=== PATIENT | female | born 1935 | race Caucasian/White ===

== ENCOUNTER 2016-07-30 | Emergency (ER) | payer MEDICARE, OTHER | END 2016-07-30 20:50 | disposition home or self-care (01) ==

== ENCOUNTER 2017-12-09 10:06 | Emergency (ER) | payer MEDICARE, OTHER ==
--- NOTE | 2017-12-09 10:28 | ED Physician Documentation ---
History of Present Illness - Stated complaint Stated Complaint: ELEVATED BP/CHEST DISCOMFORT - Chief complaint Chief Complaint: Cardiac - History obtained from History obtained from: Patient, Family - History of Present Illness Timing: How many days ago (2) Pain level max: 3 Pain level now: 2 Improved by: rest Worsened by: standing - Additonal information Additional information: Patient is an 82-year-old female who presents to the emergency department complaining of head congestion and occasional coughing. She states when she coughs that her chest feels tight. She denies any fevers. Has not taken anything for this. She states that she feels "woozy" when her head hurts. Review of Systems Constitutional: denies: Fever, Chills Nose: reports: Congestion. denies: Rhinorrhea / runny nose Throat: denies: Sore throat Cardiac: denies: Chest pain / pressure Respiratory: denies: Cough GI: denies: Nausea, Vomiting Skin: denies: Rash Musculoskeletal: denies: Neck pain, Back pain PD PAST MEDICAL HISTORY - Past Medical History Cardiovascular: Hypertension, High cholesterol, Coronary artery disease, [place] Endocrine/Autoimmune: Type 2 diabetes Psych: None Musculoskeletal: None - Past Surgical History Past Surgical History: Yes Ortho: Arthroscopic surgery Cardiovascular: Coronary stent - Present Medications Home Medications: Ambulatory Orders Medication Instructions Recorded Confirmed Clopidogrel [Plavix] 1 tab PO DAILY 03/25/14 03/11/16 Lisinopril 1 tab PO DAILY 03/25/14 03/11/16 Metoprolol Succinate [Toprol Xl] 1 tab PO DAILY 03/25/14 03/11/16 Simvastatin 1 tab PO DAILY 03/25/14 03/11/16 Aspirin [Aspir 81] 81 g PO DAILY 08/01/14 03/11/16 Fluticasone [Flonase] 1 sprays CRISSY BID #1 bottle 08/01/14 03/11/16 Metformin HCl 500 mg PO BID 08/01/14 03/11/16 Hydrocodone/Acetaminophen [[place] 1 each PO Q6H PRN #20 tablet 12/18/15 03/11/16 5-325 Tablet] Cholecalciferol (Vitamin D3) 1 tab PO DAILY 01/27/16 03/11/16 [Vitamin D3] Cephalexin [Keflex] 500 mg PO Q6H #20 capsule 12/09/17 - Allergies Allergies/Adverse Reactions: Allergies Allergy/AdvReac Type Severity Reaction Status Date / Time No Known Drug Allergies Allergy Verified 12/09/17 10:22 - Social History Does the pt smoke?: No Smoking Status: Former smoker Does the pt drink ETOH?: No Does the pt have substance abuse?: No - Immunizations Immunizations are current?: Yes - POLST Patient has POLST: No PD ED PE NORMAL - Vitals Vital signs reviewed: Yes - General General: Alert and oriented X 3, No acute distress, Well developed/nourished - HEENT HEENT: PERRL, Ears normal, Pharynx benign, Other (mildly dry lips) - Neck Neck: Supple, no meningeal sign - Cardiac Cardiac: RRR, Strong equal pulses - Respiratory Respiratory: No respiratory distress, Clear bilaterally - Abdomen Abdomen: Soft, Non tender, Non distended - Back Back: No CVA TTP, No spinal TTP - Derm Derm: Warm and dry - Extremities Extremities: No edema, No calf tenderness / cord - Neuro Neuro: Alert and oriented X 3 Results - Vitals Vitals: Vital Signs - 24 hr 12/09/17 12/09/17 12/09/17 10:11 11:03 11:05 Temperature 36.6 C 36.3 C L Heart Rate 62 56 L Respiratory 18 12 Rate Blood Pressure 157/98 H 183/87 H Blood Pressure 174/99 H [Left] Blood Pressure 183/87 H [Right] O2 Saturation 99 100 12/09/17 12:37 Temperature Heart Rate 58 L Respiratory 18 Rate Blood Pressure 166/96 H Blood Pressure [Left] Blood Pressure [Right] O2 Saturation 98 Oxygen O2 Source Room air - EKG (time done) 1020 Rate: Rate (enter#) (58) Rhythm: NSR [place]: Normal Intervals: Normal [place] QRS: Normal Ischemia: Normal ST segments, Q waves (III, aVF) - Labs Labs: Laboratory Tests 12/09/17 12/09/17 12/09/17 10:35 10:35 10:35 WBC 7.7 RBC 4.42 Hgb 13.4 Hct 39.3 MCV 89.1 MCH 30.4 MCHC 34.2 RDW 13.0 Plt Count 253 MPV 7.7 L Neut # (Auto) 5.4 Lymph # (Auto) 1.4 L Ray # (Auto) 0.6 Eos # (Auto) 0.2 Baso # (Auto) 0.0 Absolute Nucleated RBC 0.00 Nucleated RBC % 0.0 Sodium 127 L Potassium 4.4 Chloride 94 L Carbon Dioxide 26 Anion Gap 7.0 BUN 14 Creatinine 0.8 Estimated GFR (MDRD) 68 L Glucose 108 H Calcium 8.9 Total Bilirubin 0.9 AST 19 ALT 13 Alkaline Phosphatase 61 Troponin I < 0.04 Total Protein 7.3 Albumin 4.0 Globulin 3.3 Albumin/Globulin Ratio 1.2 Lipase 38 Urine Color Urine Clarity Urine pH Ur Specific [place] Urine Protein Urine Glucose (UA) Urine Ketones Urine Occult Blood Urine Nitrite Urine Bilirubin Urine Urobilinogen Ur Leukocyte Esterase Urine RBC Urine WBC Ur Squamous Epith Cells Urine Bacteria Ur Microscopic Review Urine Culture Comments 12/09/17 11:00 WBC RBC Hgb Hct MCV MCH MCHC RDW Plt Count MPV Neut # (Auto) Lymph # (Auto) Ray # (Auto) Eos # (Auto) Baso # (Auto) Absolute Nucleated RBC Nucleated RBC % Sodium Potassium Chloride Carbon Dioxide Anion Gap BUN Creatinine Estimated GFR (MDRD) Glucose Calcium Total Bilirubin AST ALT Alkaline Phosphatase Troponin I Total Protein Albumin Globulin Albumin/Globulin Ratio Lipase Urine Color YELLOW Urine Clarity CLEAR Urine pH 7.0 Ur Specific Fleming <=1.005 Urine Protein NEGATIVE Urine Glucose (UA) NEGATIVE Urine Ketones NEGATIVE Urine Occult Blood NEGATIVE Urine Nitrite NEGATIVE Urine Bilirubin NEGATIVE Urine Urobilinogen 0.2 (NORMAL) Ur Leukocyte Esterase SMALL H Urine RBC None Seen Urine WBC 0-3 Ur Squamous Epith Cells FEW Squamous Urine Bacteria Few Ur Microscopic Review INDICATED Urine Culture Comments INDICATED - Rads (name of study) cxr Radiology: Prelim report reviewed, EMP read contemporaneously, See rad report ( Mild bibasilar reticular opacity, likely atelectasis. No focal consolidation or other acute abnormality appreciated. ) PD MEDICAL DECISION MAKING - ED course Complexity details: reviewed results, re-evaluated patient, considered differential, d/w patient, d/w family ED course: Patient is an 82-year-old female who presents to the emergency department not feeling well today. Appears to have UTI and will treat her for this. No evidence of acute coronary syndrome. Also feels better after a small amount of IV fluids, likely mild dehydration as well. Has chronic hyponatremia and her sodium levels are unchanged from baseline. She is well-appearing, nontoxic. Afebrile. No focal neurological deficits. Patient and family counseled regarding signs and symptoms for which I believe and urgent re-evaluation would be necessary. Patient with good understanding of and agreement to plan and is comfortable going home at this time This document was made in part using voice recognition software. While efforts are made to proofread this document, sound alike and grammatical errors may occur. Departure - Departure Disposition: Home, Self Care Clinical Impression: Light-headed feeling UTI (urinary tract infection) Qualifiers: Urinary tract infection type: acute cystitis Hematuria presence: without hematuria Qualified Code(s): N30.00 - Acute cystitis without hematuria Condition: Good Instructions: ED UTI Cystitis Female Follow-Up: Caleb Tamez MD [Primary Care Provider] - Prescriptions: Cephalexin [Keflex] 500 mg PO Q6H #20 capsule Comments: Take all antibiotics until gone. Return if you worsen. Drink plenty of water at home. Discharge Date/Time: 12/09/17 12:37
[2017-12-09] MEDS ORDERED: ACETAMINOPHEN 500 MG TABLET PO STA (10:32)
[2017-12-09] MEDS ORDERED: SODIUM CHLORIDE 0.9% 500 ML IV ONE (10:32)
[2017-12-09 10:42] LABS: BASOPHILS % (AUTO) 0.5 %; EOSINOPHILS # (AUTO) 0.2 10^3/uL (0.0-0.7); EOSINOPHILS % (AUTO) 2.6 %; HGB - HEMOGLOBIN 13.4 g/dL (12.0-16.0); LYMPHOCYTES # (AUTO) 1.4 10^3/uL (1.5-3.5); LYMPHOCYTES % (AUTO) 18.4 %; MEAN CORPUSCULAR HEMOGLOBIN 30.4 pg (27.0-31.0); MEAN CORPUSCULAR HGB CONC 34.2 g/dL (32.0-36.0); MEAN CORPUSCULAR VOLUME 89.1 fL (81.0-99.0); MEAN PLATELET VOLUME 7.7 fL (7.9-10.8); MONOCYTES # (AUTO) 0.6 10^3/uL (0.0-1.0); MONOCYTES % (AUTO) 7.4 %; NEUTROPHILS # (AUTO) 5.4 10^3/uL (1.5-6.6); NEUTROPHILS % (AUTO) 71.1 %; PLT - PLATELET COUNT 253 10^3/uL (130-450); RED BLOOD COUNT 4.42 10^6/uL (4.20-5.40); WHITE BLOOD COUNT 7.7 x10^3/uL (4.8-10.8)
[2017-12-09 10:55] LABS: ALBUMIN/GLOBULIN RATIO 1.2 (1.0-2.2); BILIRUBIN,TOTAL 0.9 mg/dL (0.2-1.0); CALCIUM 8.9 mg/dL (8.5-10.3); CREATININE 0.8 mg/dL (0.4-1.0); TOTAL PROTEIN 7.3 g/dL (6.7-8.2)
[2017-12-09 11:27] LABS: BILIRUBIN,URINE NEGATIVE (NEGATIVE); GLUCOSE, URINE (UA) NEGATIVE (NEGATIVE); KETONES,URINE (UA) NEGATIVE (NEGATIVE); LEUKOCYTE ESTERASE, URINE SMALL (NEGATIVE); NITRITE,URINE NEGATIVE (NEGATIVE); OCCULT BLOOD,URINE NEGATIVE (NEGATIVE); PROTEIN,URINE NEGATIVE (NEGATIVE); UROBILINOGEN,URINE 0.2 (NORMAL) E.U./dL (NORMAL)
[2017-12-09 11:33] LABS: BACTERIA,URINE Few /HPF (None Seen); CLARITY,URINE CLEAR (CLEAR); RBC,URINE None Seen /HPF (0-5); SQUAMOUS EPITHELIAL CELL,UR FEW Squamous (<= Few)
--- NOTE | 2017-12-09 11:40 | XRAY Report ---
EXAM: CHEST RADIOGRAPHY EXAM DATE: 12/09/2017 11:27 AM. CLINICAL HISTORY: Chest pain. COMPARISON: 03/11/2016. TECHNIQUE: 1 view. FINDINGS: Lungs/Pleura: There is mild bibasilar reticular opacity. No focal consolidation. No pneumothorax or l arge pleural effusion. Mediastinum: Heart size within normal limits. Atherosclerotic calcification in the aortic arch. Other: None. IMPRESSION: 1. Mild bibasilar reticular opacity, likely atelectasis. 2. No focal consolidation or other acute abnormality appreciated. [facility] Referring Provider Line: [phone] SITE ID: [id number]
[2017-12-09] MEDS ORDERED: cephALEXin 250 MG CAPSULE PO STA (12:09)
[2017-12-09 12:38] VITALS: BP 166/96
== END 2017-12-09 12:37 | disposition home or self-care (01) ==
LOC: ED 10:06
DX: E86.0 Dehydration (principal); R42 Dizziness and giddiness; N30.00 Acute cystitis without hematuria; I10 Essential (primary) hypertension; E78.00 Pure hypercholesterolemia, unspecified; I25.10 Atherosclerotic heart disease of native coronary artery without angina pectoris; I25.2 Old myocardial infarction; E11.9 Type 2 diabetes mellitus without complications; Z79.84 Long term (current) use of oral hypoglycemic drugs; Z79.82 Long term (current) use of aspirin; Z87.891 Personal history of nicotine dependence
CPT/HCPCS: 71045; 80053; 81001; 83690; 84484; 85025; 87086; 93005; 96360; 96361; 99284; A9270; 36415; 81003

== ENCOUNTER 2018-02-11 13:49 | Emergency (ER) | payer MEDICARE, OTHER ==
[2018-02-11 15:21] LABS: BASOPHILS % (AUTO) 0.5 %; EOSINOPHILS # (AUTO) 0.2 10^3/uL (0.0-0.7); EOSINOPHILS % (AUTO) 1.8 %; HGB - HEMOGLOBIN 12.7 g/dL (12.0-16.0); LYMPHOCYTES # (AUTO) 1.5 10^3/uL (1.5-3.5); LYMPHOCYTES % (AUTO) 15.2 %; MEAN CORPUSCULAR HEMOGLOBIN 31.5 pg (27.0-31.0); MEAN CORPUSCULAR HGB CONC 34.8 g/dL (32.0-36.0); MEAN CORPUSCULAR VOLUME 90.6 fL (81.0-99.0); MEAN PLATELET VOLUME 7.2 fL (7.9-10.8); MONOCYTES # (AUTO) 0.7 10^3/uL (0.0-1.0); MONOCYTES % (AUTO) 6.7 %; NEUTROPHILS # (AUTO) 7.5 10^3/uL (1.5-6.6); NEUTROPHILS % (AUTO) 75.8 %; PLT - PLATELET COUNT 265 10^3/uL (130-450); RED BLOOD COUNT 4.04 10^6/uL (4.20-5.40); RED CELL DISTRIBUTION WIDTH 13.1 % (12.0-15.0); WHITE BLOOD COUNT 9.9 x10^3/uL (4.8-10.8)
[2018-02-11 15:40] LABS: ALBUMIN 3.6 g/dL (3.2-5.5); ALBUMIN/GLOBULIN RATIO 1.2 (1.0-2.2); BILIRUBIN,TOTAL 0.6 mg/dL (0.2-1.0); CALCIUM 8.8 mg/dL (8.5-10.3); CREATININE 0.7 mg/dL (0.4-1.0); TOTAL PROTEIN 6.7 g/dL (6.7-8.2)
--- NOTE | 2018-02-11 18:48 | ED Physician Documentation ---
PD HPI CHEST PAIN - Stated complaint Stated Complaint: BP HIGH, LIGHTHEADED - Chief complaint Chief Complaint: General - History obtained from History obtained from: Patient - History of Present Illness Timing - onset: How many days ago (has noted BP higher the past few days and was 180s today and then got higher as she took it repeatedly. She has had some frontal sinus pressure for days. Not taking any decongestants, but did take Zyrtec. Feeling some lightheaded and frontal headache at times. Took BP and it was eleveated, even higher today. Took it many times today.) Timing - onset during: Light activity Timing - details: Gradual onset, Waxing and waning Quality: Other (no chest pain, but did feel anxious. BP noted to be high at home.) Associated symptoms: Feeling faint / dizzy, General Weakness. No: Shortness of air, Nausea, Vomiting, Palpitations, Cough Similar symptoms before: Diagnosis (BP runs high at times, but higher today than previously.) Recently seen: Not recently seen Review of Systems Constitutional: denies: Fever, Chills Eyes: reports: Decreased vision (es blurry at times). denies: Loss of vision, Photophobia Nose: reports: Congestion, Sinus pressure / pain. denies: Rhinorrhea / runny nose Throat: denies: Sore throat Cardiac: denies: Chest pain / pressure, Palpitations, Pedal edema, Calf pain Respiratory: denies: Dyspnea, Cough, Wheezing Skin: denies: Rash, Lesions Neurologic: reports: Generalized weakness. denies: Focal weakness, Numbness, Near syncope, Confused, Altered mental status, Head injury PD PAST MEDICAL HISTORY - Past Medical History Past Medical History: Yes Cardiovascular: Hypertension, High cholesterol, Coronary artery disease, [place] Endocrine/Autoimmune: Type 2 diabetes Psych: None Musculoskeletal: None - Past Surgical History Past Surgical History: Yes Ortho: Arthroscopic surgery Cardiovascular: Coronary stent - Present Medications Home Medications: Ambulatory Orders Medication Instructions Recorded Confirmed Clopidogrel [Plavix] 1 tab PO DAILY 03/25/14 03/11/16 Lisinopril 1 tab PO DAILY 03/25/14 03/11/16 Metoprolol Succinate [Toprol Xl] 1 tab PO DAILY 03/25/14 03/11/16 Simvastatin 1 tab PO DAILY 03/25/14 03/11/16 Aspirin [Aspir 81] 81 g PO DAILY 08/01/14 03/11/16 Fluticasone [Flonase] 1 sprays CRISSY BID #1 bottle 08/01/14 03/11/16 Metformin HCl 500 mg PO BID 08/01/14 03/11/16 Hydrocodone/Acetaminophen [[place] 1 each PO Q6H PRN #20 tablet 12/18/15 03/11/16 5-325 Tablet] Cholecalciferol (Vitamin D3) 1 tab PO DAILY 01/27/16 03/11/16 [Vitamin D3] Cephalexin [Keflex] 500 mg PO Q6H #20 capsule 12/09/17 Dexamethasone [Decadron] 4 mg PO DAILY #5 tablet 02/11/18 Fluticasone [Flonase] 1 sprays CRISSY BID #1 bottle 02/11/18 - Allergies Allergies/Adverse Reactions: Allergies Allergy/AdvReac Type Severity Reaction Status Date / Time No Known Drug Allergies Allergy Verified 12/09/17 10:22 - Social History Does the pt smoke?: No Smoking Status: Never smoker Does the pt drink ETOH?: No Does the pt have substance abuse?: No - Immunizations Immunizations are current?: Yes - POLST Patient has POLST: No PD ED PE NORMAL - Vitals Vital signs reviewed: Yes - General General: Alert and oriented X 3, No acute distress, Well developed/nourished - HEENT HEENT: Atraumatic, Moist mucous membranes, Pharynx benign, Other (some frontal tenderness to percussion) - Neck Neck: Supple, no meningeal sign, No adenopathy - Cardiac Cardiac: RRR, No murmur - Respiratory Respiratory: Clear bilaterally - Abdomen Abdomen: Soft, Non tender - Derm Derm: Normal color, Warm and dry - Extremities Extremities: No deformity, No tenderness to palpate, Normal ROM s pain, No edema , No calf tenderness / cord - Neuro Neuro: Alert and oriented X 3, clinical program director 2-12 intact, No motor deficit, No sensory deficit, Normal speech Eye Opening: Spontaneous Motor: Obeys Commands Verbal: Oriented GCS Score: 15 Results - Vitals Vitals: Vital Signs - 24 hr 02/11/18 02/11/18 02/11/18 14:20 16:16 18:25 Temperature 36.8 C 36.0 C L Heart Rate 60 61 64 Respiratory 18 20 15 Rate Blood Pressure 154/80 H 151/97 H 193/88 H O2 Saturation 100 100 100 02/11/18 02/11/18 19:48 20:38 Temperature Heart Rate 73 82 Respiratory 19 19 Rate Blood Pressure 189/107 H 143/124 H O2 Saturation 100 100 Oxygen O2 Source Room air - EKG (time done) 15:10 Rate: Rate (enter#) (60) Rhythm: NSR [place]: Normal Intervals: Normal [place] QRS: Normal Ischemia: Normal ST segments. No: ST elevation c/w ischemia, ST depression - Labs Labs: Laboratory Tests 02/11/18 02/11/18 02/11/18 15:10 15:10 15:10 WBC 9.9 RBC 4.04 L Hgb 12.7 Hct 36.6 L MCV 90.6 MCH 31.5 H MCHC 34.8 RDW 13.1 Plt Count 265 MPV 7.2 L Neut # (Auto) 7.5 H Lymph # (Auto) 1.5 [place] # (Auto) 0.7 Eos # (Auto) 0.2 Baso # (Auto) 0.0 Absolute Nucleated RBC 0.00 Nucleated RBC % 0.0 Sodium 124 L Potassium 4.3 Chloride 92 L Carbon Dioxide 21 Anion Gap 11.0 BUN 14 Creatinine 0.7 Estimated GFR (MDRD) 80 L Glucose 112 H Calcium 8.8 Magnesium 1.9 Total Bilirubin 0.6 AST 17 ALT 13 Alkaline Phosphatase 55 B-Natriuretic Peptide Total Protein 6.7 Albumin 3.6 Globulin 3.1 Albumin/Globulin Ratio 1.2 Lipase 39 02/11/18 15:10 WBC RBC Hgb Hct MCV MCH MCHC RDW Plt Count MPV Neut # (Auto) Lymph # (Auto) [place] # (Auto) Eos # (Auto) Baso # (Auto) Absolute Nucleated RBC Nucleated RBC % Sodium Potassium Chloride Carbon Dioxide Anion Gap BUN Creatinine Estimated GFR (MDRD) Glucose Calcium Magnesium Total Bilirubin AST ALT Alkaline Phosphatase B-Natriuretic Peptide 148 H Total Protein Albumin Globulin Albumin/Globulin Ratio Lipase PD MEDICAL DECISION MAKING - ED course Complexity details: considered differential (has frontal sinus pressure and some congestion c/w allergies. She took BP many times today and it kept getting higher. This concerned her. ), d/w patient - Sepsis Event Vital Signs: Vital Signs - 24 hr 02/11/18 02/11/18 02/11/18 14:20 16:16 18:25 Temperature 36.8 C 36.0 C L Heart Rate 60 61 64 Respiratory 18 20 15 Rate Blood Pressure 154/80 H 151/97 H 193/88 H O2 Saturation 100 100 100 02/11/18 02/11/18 19:48 20:38 Temperature Heart Rate 73 82 Respiratory 19 19 Rate Blood Pressure 189/107 H 143/124 H O2 Saturation 100 100 Oxygen O2 Source Room air Departure - Departure Disposition: 01 Home, Self Care Clinical Impression: Sinus pressure, Elevated blood pressure reading, Hyponatremia Condition: Stable Record reviewed to determine appropriate education?: Yes Instructions: ED Hyponatremia, ED Headache Sinus Follow-Up: Caleb Tamez MD [Primary Care Provider] - Prescriptions: Dexamethasone [Decadron] 4 mg PO DAILY #5 tablet Fluticasone [Flonase] 1 sprays CRISSY BID #1 bottle Comments: Use Flonase nasal spray twice daily for sinus congestion. He can continue the Zyrtec daily. We could use some oral steroids daily for a few days to help with the symptoms as well. The sinus pressure and headache may be causing her blood pressure to be elevated. For now continue your usual blood pressure medicines. Check your blood pressure twice daily but no more than that over the next week or so. Follow-up with your primary care regarding symptoms and the trend of the blood pressure. Discharge Date/Time: 02/11/18 20:42
[2018-02-11] MEDS ORDERED: DEXAMETHASONE 10 MG/ML VIAL PO STA (19:14)
[2018-02-11] MEDS ORDERED: SODIUM CHLORIDE 0.9% 1,000 ML IV ONE (19:14)
[2018-02-11] MEDS ORDERED: CHERRY SYRUP 10 ML UDC PO ONE (19:16)
[2018-02-11 20:39] VITALS: BP 143/124
== END 2018-02-11 20:42 | disposition home or self-care (01) ==
LOC: ED 13:49
DX: J32.9 Chronic sinusitis, unspecified (principal); I10 Essential (primary) hypertension; E87.1 Hypo-osmolality and hyponatremia; R94.31 Abnormal electrocardiogram [ECG] [EKG]; E11.9 Type 2 diabetes mellitus without complications; E78.00 Pure hypercholesterolemia, unspecified; Z79.84 Long term (current) use of oral hypoglycemic drugs; I25.2 Old myocardial infarction; I25.10 Atherosclerotic heart disease of native coronary artery without angina pectoris; Z95.5 Presence of coronary angioplasty implant and graft; Z79.82 Long term (current) use of aspirin
CPT/HCPCS: 36415; 80053; 83690; 83735; 83880; 85025; 93005; 96360; 99283; A9270

== ENCOUNTER 2018-02-17 09:00 | Outpatient (CLI) | payer MEDICARE, OTHER ==
[2018-02-17 13:22] LABS: CALCIUM 9.4 mg/dL (8.5-10.3); CREATININE 0.9 mg/dL (0.4-1.0)
== END 2018-02-17 09:01 ==
LOC: LAB.WCP 09:00
PROVIDERS: ATTEND Family Medicine
DX: E87.1 Hypo-osmolality and hyponatremia (principal)
CPT/HCPCS: 36415; 80048

== ENCOUNTER 2018-02-24 08:20 | Outpatient (CLI) | payer MEDICARE, OTHER ==
[2018-02-24 12:41] LABS: CALCIUM 8.8 mg/dL (8.5-10.3); CREATININE 0.8 mg/dL (0.4-1.0)
== END 2018-02-24 08:21 | disposition home or self-care (01) ==
LOC: LAB.WCP 08:20
PROVIDERS: ATTEND Family Medicine
DX: E87.1 Hypo-osmolality and hyponatremia (principal)
CPT/HCPCS: 36415; 80048

== ENCOUNTER 2018-02-25 11:10 | Outpatient (CLI) | payer MEDICARE, OTHER ==
[2018-02-26 10:01] LABS: HEPATITIS C ANTIBODY NON-REACTIVE (NON-REACTIVE)
== END 2018-02-25 11:11 ==
LOC: LAB.WCP 11:10
PROVIDERS: ATTEND Family Medicine
DX: Z20.5 Contact with and (suspected) exposure to viral hepatitis (principal)
CPT/HCPCS: 36415; 86803

== ENCOUNTER → 2018-03-06 | Outpatient (CLI) | payer MEDICARE, OTHER ==
[2018-03-06 13:46] LABS: CALCIUM 9.2 mg/dL (8.5-10.3); CREATININE 0.6 mg/dL (0.4-1.0)
== END ==
LOC: LAB.WCP 08:00
PROVIDERS: ATTEND Family Medicine
DX: E87.1 Hypo-osmolality and hyponatremia (principal)
CPT/HCPCS: 36415; 80048

== ENCOUNTER 2018-11-20 09:02 | Outpatient (CLI) | payer MEDICARE, OTHER ==
--- NOTE | 2018-11-20 13:38 | XRAY Report ---
Reason: COUGH Procedure Date: 11/20/2018 Accession Number: [id number] / [id number] Procedure: WCP - Chest 2 View X-Ray CPT Code: 86969 FULL RESULT: EXAM: CHEST RADIOGRAPHY EXAM DATE: 11/20/2018 09:28 AM. CLINICAL HISTORY: Cough. COMPARISON: CHEST 1 VIEW 12/09/2017 11:12 AM. CHEST 2 VIEW PA/LAT 11/17/2015 7:55 AM. TECHNIQUE: 2 views. FINDINGS: Lungs/Pleura: 3.8 cm rounded mass superimposes over the left lower lung/cardiac silhouette on the frontal projection which may be pleural-based on the lateral projection. No effusion or extra-ventilatory air. Mediastinum: Heart and mediastinal contours are unremarkable. Other: None. IMPRESSION: 3.8 cm rounded mass left lower lung likely posterior pleural-based. CT is recommended for definitive characterization. AVANI The call report notification system was initiated by Dr. Castillo Larsen at 01:32 PM on 11/20/2018. ADDENDUM: 11/20/18 13:41 The above call report findings were discussed with Magdi Troy by Dr. Castillo Larsen at 01:41 PM on 11/20/2018.
== END 2018-11-20 09:03 | disposition home or self-care (01) ==
LOC: DI.WCP 09:02
PROVIDERS: ATTEND Family Medicine
DX: R91.8 Other nonspecific abnormal finding of lung field (principal)
CPT/HCPCS: 71046

== ENCOUNTER 2018-11-21 10:41 | Outpatient (CLI) | payer MEDICARE, OTHER ==
[2018-11-21 11:26] LABS: CREATININE 0.8 mg/dL (0.4-1.0)
[2018-11-21] MEDS ORDERED: IOVERSOL 320 100 ML VIAL IVP ONE ×2 (12:09→12:24)
--- NOTE | 2018-11-23 21:11 | CT Report ---
Reason: PULMONARY NODULE Procedure Date: 11/21/2018 Accession Number: [id number] / [id number] Procedure: CT - CHEST W CPT Code: FULL RESULT: EXAM: CT CHEST EXAM DATE: 11/21/2018 12:23 PM. CLINICAL HISTORY: PULMONARY NODULE. COMPARISONS: CHEST 2 VIEW 11/20/2018 9:09 AM. TECHNIQUE: Routine helical CT imaging was performed through the chest. IV contrast: None. Reconstructions: Coronal and sagittal. In accordance with CT protocol optimization, one or more of the following dose reduction techniques were utilized for this exam: automated exposure control, adjustment of mA and/or KV based on patient size, or use of iterative reconstructive technique. FINDINGS: Lungs/Pleura: There is a large moderately well-circumscribed mass in the superior aspect of the left lower lobe. There are, however, surrounding areas of subtle spiculation/interstitial change. Transversely this measures 30 mm x30 mm and superiorly inferiorly measures 37 mm. There is contiguity with the pleural surface yet no CT evidence for invasion. Otherwise the lungs demonstrate areas of centrilobular emphysema and minimal scarring in the apices. There is early interstitial change in the periphery of the mid and lower lungs. No acute pneumonic infiltrates. No secondary pulmonary nodules. Mediastinum: The heart is borderline enlarged. There are prominent atherosclerotic vascular calcifications of the coronary arteries. There is no mediastinal or hilar lymphadenopathy. There is no axillary lymphadenopathy. The thyroid gland is normal. Bones: Unremarkable. Visualized Abdomen: Limited views through the upper abdomen demonstrate fatty infiltration of the liver. There is a tiny focus of enhancement in the posterior segment of the right lobe of the liver. This measures 4 mm and is too small to characterize. The adrenal glands are normal. Other: None. IMPRESSION: 1. Prominent mass in the left lower lobe as described with slight surrounding spiculation suggesting early infiltration in the adjacent parenchyma. 2. No mediastinal or hilar lymphadenopathy. 3. Centrilobular emphysema. 4. Tiny focus of enhancement in the right lobe of the liver too small to characterize. [facility]
== END 2018-11-21 10:42 | disposition home or self-care (01) ==
LOC: DI 10:41
PROVIDERS: ATTEND Family Medicine
DX: R91.8 Other nonspecific abnormal finding of lung field (principal); J43.2 Centrilobular emphysema
CPT/HCPCS: 36415; 71260; 82565; Q9967

== ENCOUNTER 2018-12-31 06:54 | Outpatient (CLI) | payer MEDICARE, OTHER ==
--- NOTE | 2018-12-31 15:00 | CT Report ---
Reason: LUNG MASS Procedure Date: 12/31/2018 Accession Number: [id number] / [id number] Procedure: CT - CHEST WO CPT Code: FULL RESULT: EXAM: CT CHEST WITHOUT CONTRAST. EXAM DATE: 12/31/2018 07:18 AM. CLINICAL HISTORY: Lung mass. 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 COMPARISONS: CHEST W/ 11/21/2018 12:14 PM. TECHNIQUE: Routine helical CT imaging was performed through the chest. IV contrast: None. Reconstructions: Coronal and sagittal. In accordance with CT protocol optimization, one or more of the following dose reduction techniques were utilized for this exam: automated exposure control, adjustment of mA and/or KV based on patient size, or use of iterative reconstructive technique. FINDINGS: Lungs/Pleura: The 3 x 3 cm left lower lung mass is best seen on image 36 series 4 and essentially unchanged. Bibasilar peripheral interstitial thickening with possible early honeycombing and traction bronchiectasis right greater than left is again seen. Emphysema is also again noted, unchanged. Mediastinum: Severe three-vessel coronary calcifications are redemonstrated. The thoracic aorta is moderately atherosclerotic. There is no pericardial effusion. There is no definite hilar lymphadenopathy. Prominent mediastinal lymph nodes do not meet size criteria. Bones: Unremarkable. Visualized Abdomen: Suspected focal fatty infiltration near the gallbladder fossa is again seen. Other: None. IMPRESSION: Redemonstration of left lower lobe mass, not significantly changed. [facility]
== END 2018-12-31 06:55 | disposition home or self-care (01) ==
LOC: DI 06:54
PROVIDERS: ATTEND Internal Medicine Pulmonary Disease
DX: R91.8 Other nonspecific abnormal finding of lung field (principal)
CPT/HCPCS: 71250

== ENCOUNTER 2019-02-05 16:45 | Outpatient (CLI) | payer MEDICARE, OTHER ==
[2019-02-05 17:27] LABS: CALCIUM 9.1 mg/dL (8.5-10.3); CREATININE 0.7 mg/dL (0.4-1.0)
[2019-02-05] MEDS ORDERED: GADOBUTROL 7.5 MMOL/7.5 ML VIAL ONE (17:29)
[2019-02-05] MEDS ORDERED: GADOBUTROL 7.5 MMOL/7.5 ML VIAL IVP ONE (18:13)
--- NOTE | 2019-02-06 07:03 | MRI Report ---
Reason: LUNG CANCER STAGING,MALIGNANT NEOPLASOM OF LOWER L Procedure Date: 02/05/2019 Accession Number: [id number] / [id number] Procedure: MRI - Brain W/WO CPT Code: FULL RESULT: EXAM: MRI BRAIN WITHOUT AND WITH CONTRAST EXAM DATE: 02/05/2019 06:41 PM CLINICAL HISTORY: Lung cancer staging. COMPARISON: HEAD W/O 09/10/2014 8:32 PM. TECHNIQUE: Multiplanar, multisequence T1-weighted and fluid-sensitive MR sequences of the brain were performed. Sequences optimized for routine evaluation. Other: None. IV Contrast: 4.5 mL Gadavist. FINDINGS: Brain Volume: There is moderate generalized cerebral volume loss, in keeping with the patient's age. Parenchyma: No acute hemorrhage, mass, or infarct. Mild periventricular T2 hyperintensity is present, typically reflecting chronic microvascular ischemic changes in a patient of this age. No abnormal enhancement. Ventricles/Cisterns: No hydrocephalus. No abnormal extra-axial fluid collection or hemorrhage. A prominent perivascular space is noted in the inferior left basal ganglia, a normal variant. Orbits: Postsurgical changes from cataract extractions are noted in the globes. Sella Turc[place]: The pituitary gland, cavernous sinuses, suprasellar cistern and optic chiasm are unremarkable. IAC: Symmetric and unremarkable. Vasculature: Normal signal flow void is seen in the major arterial structures at the skull base. The dural sinuses are patent and enhance normally. Sinuses: There is mild mucosal thickening in the paranasal sinuses with a new air-fluid level in the right frontal sinus. The mastoid sinuses are not opacified. Bones: No focal pathologic appearing marrow signal changes. IMPRESSION: 1. No acute infarct, intracranial mass lesion, or hemorrhage. 2. Moderate senescent changes. 3. No abnormal enhancement to suggest intracranial metastasis. [facility]
== END 2019-02-05 16:46 | disposition home or self-care (01) ==
LOC: LAB 16:45 → DI 16:46
PROVIDERS: ATTEND Surgery
DX: C34.32 Malignant neoplasm of lower lobe, left bronchus or lung (principal)
CPT/HCPCS: 36415; 70553; 80048; A9585

== ENCOUNTER 2019-03-02 07:52 | Day surgery (SDC) | payer MEDICARE, OTHER ==
[2019-03-02] MEDS ORDERED: LACTATED RINGERS 1,000 ML IV ONE (08:06)
[2019-03-02 09:00] LABS: BASOPHILS % (AUTO) 0.3 %; EOSINOPHILS # (AUTO) 0.1 10^3/uL (0.0-0.7); EOSINOPHILS % (AUTO) 1.3 %; HGB - HEMOGLOBIN 11.9 g/dL (12.0-16.0); MEAN CORPUSCULAR HGB CONC 33.5 g/dL (32.0-36.0); MEAN CORPUSCULAR VOLUME 86.4 fL (81.0-99.0); MEAN PLATELET VOLUME 10.6 fL (7.9-10.8); MONOCYTES # (AUTO) 0.2 10^3/uL (0.0-1.0); MONOCYTES % (AUTO) 3.1 %; NEUTROPHILS # (AUTO) 4.6 10^3/uL (1.5-6.6); NEUTROPHILS % (AUTO) 76.2 %; PLT - PLATELET COUNT 246 10^3/uL (130-450); RED BLOOD COUNT 4.11 10^6/uL (4.20-5.40); WHITE BLOOD COUNT 6.1 x10^3/uL (4.8-10.8)
--- NOTE | 2019-03-02 09:01 | ANESTHESIA ---
Pre-Anesthesia VS, & Labs - Diagnosis Lung cancer - Procedure Portacath placement Vital Signs: Temp Pulse Resp BP Pulse Ox 36.7 C 70 12 187/93 H 100 03/02/19 08:15 03/02/19 08:15 03/02/19 08:15 03/02/19 08:15 03/02/19 08:15 Height 4 ft 11 in Weight (kg) 43.6 kg Body Mass Index 20.2 - NPO >8 hours - Is Patient ?: Not Applicable - Lab Results Lab results reviewed: Yes Home Medications and Allergies Home Medications: Ambulatory Orders dexAMETHasone [Dexamethasone] 4 mg PO BID PRN 02/26/19 Clopidogrel [Plavix] 1 tab PO DAILY 03/25/14 Lisinopril 1 tab PO DAILY 03/25/14 Metoprolol Succinate [Toprol Xl] 1 tab PO DAILY 03/25/14 Simvastatin 1 tab PO DAILY 03/25/14 Aspirin [Aspir 81] 81 g PO DAILY 08/01/14 Metformin HCl 500 mg PO BID 08/01/14 Cholecalciferol (Vitamin D3) [Vitamin D3] 1 tab PO DAILY 01/27/16 dexAMETHasone [Dexamethasone] 4 mg PO BID PRN 02/26/19 Allergies/Adverse Reactions: Allergies Allergy/AdvReac Type Severity Reaction Status Date / Time No Known Drug Allergies Allergy Verified 12/09/17 10:22 Anes History & Medical History - Anesthetic History Anesthesia Complications: reports: No previous complications Family history of Anesthesia Complications: Denies Family history of Malignant Hyperthermia: Denies - Medical History Cardiovascular: reports: Hypertension, High cholesterol, Coronary artery disease, [place], Other (Five stents placed many years ago) Pulmonary: reports: COPD, Emphysema Gastrointestinal: reports: None Urinary: reports: None Neuro: reports: None Musculoskeletal: reports: Chronic back pain Endocrine/Autoimmune: reports: Type 2 diabetes Blood Disorders: reports: None Skin: reports: None Smoking Status: Never smoker Psychosocial: reports: No issues indicated - Surgical History Eyes Ears Nose Throat (EENT): Cataracts Cardiothoracic: Coronary stent Gynecologic: Hysterectomy Orthopedic: Arthroscopic surgery Exam General: Alert, Oriented x3, Cooperative Dental: Other (Severe mandible recession) Mouth Opening: Greater than 4 Fingerbreadths Neck Mobility: Normal Mallampati classification: II Thyromental Distance: 4-6 cm Cardiovascular: Regular rate Mental/Cognitive Status: Alert/Oriented X3 Cognitive Status: Within normal limits Plan Anesthesia Type: MAC Consent for Procedure(s) Verified and Reviewed: Yes Code Status: Attempt Resuscitation ASA classification: 3-Severe systemic disease Is this case an emergency?: No
[2019-03-02] MEDS ORDERED: SODIUM CHLORIDE FLUSH 0.9% 10 ML SYRINGE ONE (09:06)
[2019-03-02 09:11] LABS: ALBUMIN 3.6 g/dL (3.2-5.5); ALBUMIN/GLOBULIN RATIO 1.1 (1.0-2.2); BILIRUBIN,TOTAL 1.1 mg/dL (0.2-1.0); CALCIUM 8.6 mg/dL (8.5-10.3); CREATININE 0.7 mg/dL (0.4-1.0)
--- NOTE | 2019-03-02 09:13 | XRAY Report ---
Reason: preop for portacath Procedure Date: 03/02/2019 Accession Number: [id number] / [id number] Procedure: XR - Chest 1 View X-Ray CPT Code: 20497 FULL RESULT: EXAM: CHEST RADIOGRAPHY EXAM DATE: 03/02/2019 08:58 AM. CLINICAL HISTORY: Preop for Port-A-Cath. COMPARISON: CHEST 2 VIEW 11/20/2018 9:09 AM. CHEST W/O 12/31/2018 7:13 AM. TECHNIQUE: 1 view. FINDINGS: Lungs/Pleura: The left pulmonary mass projecting in the retrocardiac region is better seen on recent CT. There is no new lobar consolidation or overt pulmonary edema. There is no sizable pleural effusion or pneumothorax. Mediastinum: The cardiomediastinal silhouette is within the upper limits of normal, calcified aortic arch. Other: A left arm central catheter terminates in the lower SVC. IMPRESSION: Redemonstration of lung mass with no definite superimposed acute cardiopulmonary abnormality. RADIA
[2019-03-02] MEDS ORDERED: ceFAZolin 1 GM VIAL ONE ×2 (09:28→09:40)
[2019-03-02] MEDS ORDERED: LIDOCAINE 1% 50 ML MDV ONE (09:40)
[2019-03-02] MEDS ORDERED: IBUPROFEN 600 MG TABLET PO PRN (11:05)
[2019-03-02] MEDS ORDERED: ONDANSETRON 4 MG/2 ML VIAL IVP PRN (11:05)
[2019-03-02] MEDS ORDERED: ACETAMINOPHEN 325 MG TABLET PO PRN (11:05)
[2019-03-02 11:47] VITALS: BP 165/89
--- NOTE | 2019-03-02 12:01 | XRAY Report ---
Reason: line placement Procedure Date: 03/02/2019 Accession Number: [id number] / [id number] Procedure: XR - Chest for Line Placement CPT Code: FULL RESULT: EXAM: CHEST RADIOGRAPHY EXAM DATE: 03/02/2019 11:34 AM. CLINICAL HISTORY: Line placement. COMPARISON: CHEST 1 VIEW 03/02/2019 8:44 AM. TECHNIQUE: 1 view. FINDINGS: Lungs/Pleura: No pneumothorax or pleural effusion is appreciated. Remaining lung is unchanged. Known pulmonary mass is not well seen. Mediastinum: Stable cardiomediastinal silhouette with calcification of the aortic arch. Coronary stent is noted. Other: Left subclavian approach central venous port terminates with tip in the mid SVC. Left arm PICC terminates in the lower SVC. IMPRESSION: Port placement as described. RADIA
--- NOTE | 2019-03-02 12:04 | OPERATIVE REPORT ---
DATE OF SERVICE: 03/02/2019 Physician: Maulik Membreno MD PREOPERATIVE DIAGNOSIS: Lung cancer. POSTOPERATIVE DIAGNOSIS: Lung cancer. PROCEDURE PERFORMED: Insertion of PowerPort implantable venous access device. Intraoperative flouroscopy. ANESTHESIA: Local plus monitored anesthesia care by Akanksha Harris CRNA. SURGEON: Maulik Membreno MD ESTIMATED BLOOD LOSS: Less than 10 mL COMPLICATIONS: None. FINDINGS: Standard profile single lumen PowerPort MRI compatible, reservoir was placed in the left infraclavicular fossa. Access was via the left subclavian vein. Catheter tip was located in the superior vena cava. INDICATIONS: Patient is an 83-year-old woman with a recent diagnosis of lung cancer. She is currently receiving chemotherapy and is in need of venous access to facilitate same. She was interested in and advised to undergo placement of a PowerPort implantable venous access device. TECHNIQUE: After informed consent, patient was taken to the operating room where she was sedated and monitored. Preoperative preparation included administration of 1 gram of cefazolin intravenously within an hour of the incision. Preoperative chest x-ray and labs were obtained in satisfactory. Sequential calf compression boots have been applied preop. Plavix therapy had been held for over 5 days. Her anterior chest wall and neck were prepared with ChloraPrep solution and draped in the usual sterile fashion. Lidocaine 1% plain was used for local infiltration anesthesia. Approximately 18 mL of the mixture was used. The patient was placed in Trendelenburg position. Needle and syringe were used to access the left subclavian vein via an infraclavicular approach. A guidewire was then passed into the central venous circulation. The guidewire location of which was confirmed with fluoroscopy. The dilator was then passed over the guidewire, following which the guidewire was removed and the 8-[place] Silastic catheter, which had been flushed with saline was then advanced through the dilator sheath into the central venous circulation. Fluoroscopy was used to confirm the tip of the catheter in the superior vena cava. The breakaway sheath was removed. An incision was made extending from the needle exit site medially approximately 2.5 cm. Hemostasis achieved with electrocautery. Incision carried down through subcutaneous tissues until a subcutaneous pocket was created anterior to the pectoral muscle fascia a sufficient size to allow placement of the reservoir. After hemostasis was assured, the wound was irrigated with antibiotic solution containing 1 gram of Ancef per liter. The reservoir, which had been flushed was soaked in antibiotic solution, was seen to fit nicely into the cavity. The catheter was trimmed to the appropriate length and then attached to the hub of the reservoir with a locking device used to secure the catheter securely to the hub of the reservoir. The reservoir was then placed in the pocket. Catheter was seen to nicely exit the soft tissues beneath the clavicle and connected to the reservoir without kinking or excessive redundancy. The reservoir was secured to the pectoral fascia with two 3-0 nylon sutures. After hemostasis was assured, the wound was again irrigated with antibiotic solution, following which wound closure was accomplished in layers using continuous 3-0 Vicryl to reapproximate subcutaneous tissues, followed by 4-0 Monocryl subcuticular skin closure and Dermabond. Fluoroscopy was then used to confirm appropriate catheter tip location. The reservoir was seen to aspirate blood and flush easily with sterile saline. The procedure was then terminated, without any apparent complications. Patient left the procedure room in satisfactory condition. Sponge and needle counts were correct x2. No drains used. Followup portable upright chest x-ray is pending. cc: Magdi Troy DO TD: 03/02/2019 11:16 [email or web address]
--- NOTE | 2019-03-03 14:32 | XRAY Report ---
Reason: port placement Procedure Date: 03/02/2019 Accession Number: [id number] / [id number] Procedure: FL - OR C-Arm Procedure CPT Code: FULL RESULT: EXAM: FLUOROSCOPIC GUIDANCE EXAM DATE: 03/02/2019 10:30 AM. CLINICAL HISTORY: Port placement. COMPARISON: None. FINDINGS: No images are provided, radiologist was not present. IMPRESSION: Fluoroscopic guidance provided for vascular port placement. Total fluoroscopy time: 3 seconds. Number of images: None. RADIA
== END 2019-03-02 07:53 | disposition home or self-care (01) ==
LOC: SDS 07:52
PROVIDERS: ATTEND Internal Medicine Gastroenterology
PROC: 02HV33Z Insertion of Infusion Device into Superior Vena Cava, Percutaneous Approach (ICD-10-PCS; principal; 2019-03-02 09:30)
DX: C34.32 Malignant neoplasm of lower lobe, left bronchus or lung (principal); E11.9 Type 2 diabetes mellitus without complications; I10 Essential (primary) hypertension; J43.9 Emphysema, unspecified; E78.5 Hyperlipidemia, unspecified; I25.10 Atherosclerotic heart disease of native coronary artery without angina pectoris; G89.29 Other chronic pain; M54.5 Low back pain; J30.9 Allergic rhinitis, unspecified; L82.1 Other seborrheic keratosis; E55.9 Vitamin D deficiency, unspecified; L25.9 Unspecified contact dermatitis, unspecified cause; R51 Headache; Z79.84 Long term (current) use of oral hypoglycemic drugs; Z79.52 Long term (current) use of systemic steroids; Z95.5 Presence of coronary angioplasty implant and graft; I25.2 Old myocardial infarction; Z90.79 Acquired absence of other genital organ(s); Z87.891 Personal history of nicotine dependence
CPT/HCPCS: 36561; 71045; 80053; 85025; A9270; C1788; J7120

== ENCOUNTER 2019-03-23 12:36 | Emergency (ER) | payer MEDICARE, OTHER ==
[2019-03-23 12:49] VITALS: BP 148/55
--- NOTE | 2019-03-23 14:03 | ED Physician Documentation ---
PD HPI TRUNK INJURY - Stated complaint Stated Complaint: SIDE PX - Chief complaint Chief Complaint: Trauma Ch/Bk - History obtained from History obtained from: Patient - History of Present Illness Location: Right chest Type of injury: Fall Timing - onset: How many days ago (3) Timing - duration: Days (she fell 3 days ago and struck face, seen at [facility] and had CT face/head/neck without fractures but does have bruisings. Had not notedright chest pain much at the time, but it has gotten more painful with movement and deep breathing yesterday into today, without new injury.) Timing - details: Abrupt onset, Waxing and waning Quality: Pain, Sharp Worsened by: Moving, Palpating, Other (deep breathing) Associated symtptoms: No: Weakness, Numbness Similar symptoms before: Has not had sx before Recently seen: Emergency Dept Review of Systems Nose: denies: Rhinorrhea / runny nose, Congestion Throat: denies: Sore throat Cardiac: reports: Chest pain / pressure. denies: Palpitations Respiratory: denies: Dyspnea, Cough, Wheezing GI: denies: Abdominal Pain Neurologic: denies: Generalized weakness, Focal weakness, Numbness PD PAST MEDICAL HISTORY - Past Medical History Cardiovascular: Hypertension, High cholesterol, Coronary artery disease, [place], Other Respiratory: COPD, Emphysema Neuro: None Endocrine/Autoimmune: Type 2 diabetes GI: None : None HEENT: Chronic vision loss, Macular degeneration Psych: None Musculoskeletal: Chronic back pain Derm: None Other Past Medical History: lung ca - Past Surgical History Past Surgical History: Yes Ortho: Arthroscopic surgery /[employer]: Hysterectomy Cardiovascular: Coronary stent HEENT: Cataracts - Present Medications Home Medications: Ambulatory Orders Medication Instructions Recorded Confirmed Clopidogrel [Plavix] 1 tab PO DAILY 03/25/14 03/02/19 Lisinopril 1 tab PO DAILY 03/25/14 03/02/19 Metoprolol Succinate [Toprol Xl] 1 tab PO DAILY 03/25/14 03/02/19 Simvastatin 1 tab PO DAILY 03/25/14 03/02/19 Aspirin [Aspir 81] 81 g PO DAILY 08/01/14 03/02/19 Metformin HCl 500 mg PO BID 08/01/14 03/02/19 Hydrocodone/Acetaminophen [[place] 1 each PO Q6H PRN #20 tablet 12/18/15 03/02/19 5-325 Tablet] Cholecalciferol (Vitamin D3) 1 tab PO DAILY 01/27/16 03/02/19 [Vitamin D3] Fluticasone [Flonase] 1 sprays CRISSY BID #1 bottle 02/11/18 03/02/19 dexAMETHasone [Dexamethasone] 4 mg PO BID PRN 02/26/19 02/26/19 - Allergies Allergies/Adverse Reactions: Allergies Allergy/AdvReac Type Severity Reaction Status Date / Time No Known Drug Allergies Allergy Verified 03/23/19 12:48 - Social History Does the pt smoke?: No Smoking Status: Never smoker Does the pt drink ETOH?: No Does the pt have substance abuse?: No - Immunizations Immunizations are current?: Yes - POLST Patient has POLST: No PD ED PE NORMAL - Vitals Vital signs reviewed: Yes - General General: Alert and oriented X 3, No acute distress, Well developed/nourished - HEENT HEENT: Other (bruising on face, lower lip, chin. ) - Cardiac Cardiac: RRR, No murmur - Respiratory Respiratory: Clear bilaterally, Other (right anterolateral chest with tenderness to palpation without bruising, crepitance, nor abrasions. No rash. ) - Abdomen Abdomen: Soft, Non tender Results - Vitals Vitals: Vital Signs - 24 hr 03/23/19 12:44 Temperature 37.0 C Heart Rate 79 Respiratory 16 Rate Blood Pressure 148/55 H O2 Saturation 99 Oxygen O2 Source Room air - Rads (name of study) chest with ribs Radiology: Prelim report reviewed (no fractures nor lung injury), See rad report PD MEDICAL DECISION MAKING - ED course Complexity details: reviewed results, considered differential, d/w patient Departure - Departure Disposition: 01 Home, Self Care Clinical Impression: Chest wall contusion Qualifiers: Encounter type: initial encounter Laterality: right Qualified Code(s): S20.211A - Contusion of right front wall of thorax, initial encounter Accidental fall Qualifiers: Encounter type: initial encounter Qualified Code(s): W19.XXXA - Unspecified fall, initial encounter Condition: Stable Record reviewed to determine appropriate education?: Yes Instructions: ED Contusion Chest Wall Follow-Up: Magdi Troy DO [Primary Care Provider] - Comments: There are no rib fractures seen on your x-ray. Presume it is a bruising of the chest wall. Continue usual medications. Activity as tolerated. Discharge Date/Time: 03/23/19 14:31
--- NOTE | 2019-03-23 14:16 | XRAY Report ---
Reason: fall last saturday. pain with deep inspirtation Procedure Date: 03/23/2019 Accession Number: [id number] / [id number] Procedure: XR - Ribs w/PA Chest RT CPT Code: FULL RESULT: EXAM: RIGHT RIB RADIOGRAPHY EXAM DATE: 03/23/2019 01:39 PM. CLINICAL HISTORY: Fall last saturday. Pain with deep inspiration. COMPARISON: CHEST FOR LINE PLACEMENT 03/02/2019 11:19 AM. TECHNIQUE: 1 view of the chest and 3 views of the ribs. FINDINGS: Bones: No acute fracture is visualized. Lungs: No focal consolidation. Mild reticular densities in the lung bases are suggestive of scarring or fibrosis. Mild biapical pleural-parenchymal scarring. No pneumothorax. No pleural effusions. Mediastinum: Heart size within normal limits. Left chest port catheter projects in the mid to distal SVC. Other: None. IMPRESSION: Negative chest and rib radiography. RADIA
== END 2019-03-23 14:31 | disposition home or self-care (01) ==
LOC: ED 12:36
DX: S20.211A Contusion of right front wall of thorax, initial encounter (principal); S00.83XA Contusion of other part of head, initial encounter; S00.531A Contusion of lip, initial encounter; W01.0XXA Fall on same level from slipping, tripping and stumbling without subsequent striking against object, initial encounter; I10 Essential (primary) hypertension; E11.9 Type 2 diabetes mellitus without complications; Z79.84 Long term (current) use of oral hypoglycemic drugs; I25.10 Atherosclerotic heart disease of native coronary artery without angina pectoris; I25.2 Old myocardial infarction; Z95.5 Presence of coronary angioplasty implant and graft; Z79.02 Long term (current) use of antithrombotics/antiplatelets; Z79.82 Long term (current) use of aspirin
CPT/HCPCS: 99282; 99283

== ENCOUNTER 2019-04-04 15:42 | Emergency (ER) | payer MEDICARE, OTHER ==
[2019-04-04] MEDS ORDERED: ALBUTEROL NEB 2.5 MG/3 ML INH STA (16:23)
[2019-04-04] MEDS ORDERED: traMADol 50 MG TABLET PO STA (16:25)
--- NOTE | 2019-04-04 16:25 | ED Physician Documentation ---
History of Present Illness - Stated complaint Stated Complaint: CHEST TIGHTNESS/SOA - Chief complaint Chief Complaint: Resp - History obtained from History obtained from: Patient, Family - History of Present Illness Timing: How many days ago (several days ago) Pain level max: 7 Pain level now: 3 - Additonal information Additional information: 83-year-old female presents to the emergency department stating that she is having a feeling of chest tightness when taking a deep breath. Also having chest wall pain. States that she had pain in her chest after she fell at the [employer] exchange a week or so ago. The pain started after she received a vigorous hug from someone on Saturday. Has had pain since that time. She has lung cancer as well. Worse with taking a deep breath, moving and palpating. Nothing makes it better. Review of Systems Constitutional: denies: Fever, Chills Respiratory: denies: Cough GI: denies: Abdominal Pain, Vomiting, Diarrhea Skin: denies: Rash Musculoskeletal: denies: Neck pain, Back pain PD PAST MEDICAL HISTORY - Past Medical History Cardiovascular: Hypertension, High cholesterol, Coronary artery disease, [place], Other Respiratory: COPD, Emphysema Neuro: None Endocrine/Autoimmune: Type 2 diabetes GI: None : None HEENT: Chronic vision loss, Macular degeneration Psych: None Musculoskeletal: Chronic back pain Derm: None - Past Surgical History Past Surgical History: Yes Ortho: Arthroscopic surgery /[employer]ODUCT [employer]NAGEMENT: Hysterectomy Cardiovascular: Coronary stent HEENT: Cataracts - Present Medications Home Medications: Ambulatory Orders Medication Instructions Recorded Confirmed Clopidogrel [Plavix] 1 tab PO DAILY 03/25/14 03/02/19 Lisinopril 1 tab PO DAILY 03/25/14 03/02/19 Metoprolol Succinate [Toprol Xl] 1 tab PO DAILY 03/25/14 03/02/19 Simvastatin 1 tab PO DAILY 03/25/14 03/02/19 Aspirin [Aspir 81] 81 g PO DAILY 08/01/14 03/02/19 Metformin HCl 500 mg PO BID 08/01/14 03/02/19 Hydrocodone/Acetaminophen [[place] 1 each PO Q6H PRN #20 tablet 12/18/15 03/02/19 5-325 Tablet] Cholecalciferol (Vitamin D3) 1 tab PO DAILY 01/27/16 03/02/19 [Vitamin D3] Fluticasone [Flonase] 1 sprays CRISSY BID #1 bottle 02/11/18 03/02/19 dexAMETHasone [Dexamethasone] 4 mg PO BID PRN 02/26/19 02/26/19 - Allergies Allergies/Adverse Reactions: Allergies Allergy/AdvReac Type Severity Reaction Status Date / Time No Known Drug Allergies Allergy Verified 03/23/19 12:48 - Social History Does the pt smoke?: No Smoking Status: Never smoker Does the pt drink ETOH?: No Does the pt have substance abuse?: No - Immunizations Immunizations are current?: Yes - POLST Patient has POLST: No PD ED PE NORMAL - Vitals Vital signs reviewed: Yes - General General: Alert and oriented X 3, No acute distress - HEENT HEENT: Moist mucous membranes - Cardiac Cardiac: RRR - Respiratory Respiratory: No respiratory distress, Clear bilaterally, Other (Tender to palpation across the anterior chest. No crepitus. No ecchymosis. Diffusely tender.) - Abdomen Abdomen: Soft, Non tender, Non distended - Derm Derm: Warm and dry - Neuro Neuro: Alert and oriented X 3 Results - Vitals Vitals: Vital Signs - 24 hr 04/04/19 04/04/19 04/04/19 15:45 16:10 17:57 Temperature 37 C Heart Rate 86 77 101 H Respiratory 18 18 18 Rate Blood Pressure 152/76 H 176/74 H 142/108 H O2 Saturation 100 100 99 Oxygen O2 Source Room air - EKG (time done) 1555 Rate: Rate (enter#) (79) Rhythm: NSR [place]: Normal Intervals: Normal LA QRS: Normal Ischemia: Normal ST segments, Q waves (III, aVF) - Rads (name of study) CT chest Radiology: Prelim report reviewed, EMP read contemporaneously, See rad report (. No acute fractures. There are healing fractures of the left anterior 4th and 5th ribs. 2. New cavitation/necrosis of previous seen left lower lobe pulmonary mass, which is in continuity with several adjacent bronchi. This lesion is decreased in size, previously measuring 3 x 3 cm, now measuring 2.1 x 2.1 cm. 3. New cavitary versus necrotic nodule within the anterior aspect of the left lingula adjacent to the hilum measuring 1.4 x 1.1 cm. Differential includes metastatic disease versus focal infection. 4. Other chronic findings similar to prior study, as detailed above.) PD MEDICAL DECISION MAKING - ED course Complexity details: reviewed results, re-evaluated patient, considered differential, d/w patient, d/w family ED course: 83-year-old female with rib fractures. These appear to be healing. We will continue supportive care and follow-up with her doctor. She is well-appearing, nontoxic. Afebrile. Cavitary lesions are likely from the chemotherapy. No evidence of infection at this time. Patient counseled regarding signs and symptoms for which I believe and urgent re-evaluation would be necessary. Patient with good understanding of and agreement to plan and is comfortable going home at this time This document was made in part using voice recognition software. While efforts are made to proofread this document, sound alike and grammatical errors may occur. Departure - Departure Disposition: 01 Home, Self Care Clinical Impression: Rib fractures Qualifiers: Encounter type: initial encounter Rib fracture type: multiple ribs Fracture type: closed Laterality: left Qualified Code(s): S22.42XA - Multiple fractures of ribs, left side, initial encounter for closed fracture Condition: Good Instructions: ED Fx Rib Follow-Up: Magdi Troy DO [Primary Care Provider] - Within 1 week Comments: Continue your pain medication at home. Return if you worsen. Follow-up with your doctor for further care. Discharge Date/Time: 04/04/19 17:58
--- NOTE | 2019-04-04 17:19 | CT Report ---
Reason: chest wall pain s/p fall, dyspnea Procedure Date: 04/04/2019 Accession Number: [id number] / [id number] Procedure: CT - CHEST WO CPT Code: FULL RESULT: EXAM: CT CHEST EXAM DATE: 04/04/2019 04:44 PM. CLINICAL HISTORY: Chest wall pain after fall, dyspnea. Right-sided rib pain. History of lung cancer. COMPARISONS: CHEST W/O 12/31/2018 7:13 AM. TECHNIQUE: Routine helical CT imaging was performed through the chest. IV contrast: None. Reconstructions: Coronal and sagittal. In accordance with CT protocol optimization, one or more of the following dose reduction techniques were utilized for this exam: automated exposure control, adjustment of mA and/or KV based on patient size, or use of iterative reconstructive technique. FINDINGS: Imaged neck: Unremarkable Central airways: Trachea and central airways are patent. There is bilateral lower lobe bronchiectasis. Lung parenchyma: New cavitation/necrosis of previous seen left lower lobe pulmonary mass, which is in continuity with several adjacent bronchi. This lesion is decreased in size, previously measuring 3 x 3 cm, now measuring 2.1 x 2.1 cm. New cavitary versus necrotic nodule within the anterior aspect of the left lingula adjacent to the hilum measuring 1.4 x 1.1 cm (image 101, series 4). Background of mild upper lobe predominant centrilobular emphysema with honeycombing , most pronounced in the right middle and right lower lobes consistent with pulmonary fibrosis. Pleural effusion: None Pneumothorax: None Heart: Normal in size with three-vessel coronary artery disease. Patient appears to be status post cardiac stenting. No pericardial effusion. Aorta: Normal in caliber with moderate/severe atherosclerosis. Pulmonary arteries: Unremarkable Esophagus: Tiny hiatal hernia. Adenopathy: None Imaged abdomen: Question gallstones in the gallbladder. Moderate atherosclerosis of the imaged bowel aorta. Sidewalls: Left subclavian approach Port-A-Cath with tip in the proximal SVC. Bones: No acute fractures. There are healing fractures of the left anterior 4th and 5th ribs. No suspicious osseous lesions. IMPRESSION: 1. No acute fractures. There are healing fractures of the left anterior 4th and 5th ribs. 2. New cavitation/necrosis of previous seen left lower lobe pulmonary mass, which is in continuity with several adjacent bronchi. This lesion is decreased in size, previously measuring 3 x 3 cm, now measuring 2.1 x 2.1 cm. 3. New cavitary versus necrotic nodule within the anterior aspect of the left lingula adjacent to the hilum measuring 1.4 x 1.1 cm. Differential includes metastatic disease versus focal infection. 4. Other chronic findings similar to prior study, as detailed above. RADIA
[2019-04-04 17:59] VITALS: BP 142/108
== END 2019-04-04 17:58 | disposition home or self-care (01) ==
LOC: ED 15:42
DX: S22.42XA Multiple fractures of ribs, left side, initial encounter for closed fracture (principal); X58.XXXA Exposure to other specified factors, initial encounter; C34.90 Malignant neoplasm of unspecified part of unspecified bronchus or lung; J43.9 Emphysema, unspecified; I10 Essential (primary) hypertension; E11.9 Type 2 diabetes mellitus without complications; Z79.84 Long term (current) use of oral hypoglycemic drugs; Z79.82 Long term (current) use of aspirin
CPT/HCPCS: 71250; 93005; 99282; 99283; A9270

== ENCOUNTER 2019-05-01 14:17 | Emergency (ER) | payer MEDICARE, OTHER ==
[2019-05-01 14:26] VITALS: BP 131/72
[2019-05-01 14:56] LABS: BASOPHILS % (AUTO) 0.3 %; EOSINOPHILS # (AUTO) 0.5 10^3/uL (0.0-0.7); HGB - HEMOGLOBIN 10.4 g/dL (12.0-16.0); LYMPHOCYTES # (AUTO) 0.7 10^3/uL (1.5-3.5); LYMPHOCYTES % (AUTO) 10.8 %; MEAN CORPUSCULAR HEMOGLOBIN 30.2 pg (27.0-31.0); MEAN CORPUSCULAR HGB CONC 32.8 g/dL (32.0-36.0); MEAN CORPUSCULAR VOLUME 92.2 fL (81.0-99.0); MEAN PLATELET VOLUME 10.5 fL (7.9-10.8); MONOCYTES # (AUTO) 0.7 10^3/uL (0.0-1.0); MONOCYTES % (AUTO) 10.7 %; NEUTROPHILS # (AUTO) 4.5 10^3/uL (1.5-6.6); NEUTROPHILS % (AUTO) 69.4 %; PLT - PLATELET COUNT 205 10^3/uL (130-450); RED BLOOD COUNT 3.44 10^6/uL (4.20-5.40); WHITE BLOOD COUNT 6.5 x10^3/uL (4.8-10.8)
--- NOTE | 2019-05-01 14:58 | ED Physician Documentation ---
History of Present Illness - Stated complaint Stated Complaint: SOA - Chief complaint Chief Complaint: Resp - Additonal information Additional information: This is an 83-year-old female with history of HTN, Diabetes, lung cancer who is status post radiation and chemotherapy, completing this in March, and who is about to start immunotherapy. She presents with several days of dry cough, some shortness of breath, and a feeling of congestion. She has not had a measured fever. No abdominal pain or vomiting. 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 No specific chest pain. No history of blood clots, no leg swelling or redness. Review of Systems Constitutional: denies: Fever Nose: reports: Congestion Cardiac: denies: Calf pain Respiratory: reports: Cough GI: denies: Vomiting : denies: Dysuria Skin: denies: Rash Immunocompromised: reports: Chemotherapy (Completed) PD PAST MEDICAL HISTORY - Past Medical History Cardiovascular: Hypertension, High cholesterol, Coronary artery disease, [place], Other Respiratory: COPD, Emphysema Neuro: None Endocrine/Autoimmune: Type 2 diabetes GI: None : None HEENT: Chronic vision loss, Macular degeneration Psych: None Musculoskeletal: Chronic back pain Derm: None - Past Surgical History Past Surgical History: Yes Ortho: Arthroscopic surgery /[employer]: Hysterectomy Cardiovascular: Coronary stent HEENT: Cataracts - Present Medications Home Medications: Ambulatory Orders Medication Instructions Recorded Confirmed Lisinopril 1 tab PO BID 03/25/14 04/20/19 Metoprolol Succinate [Toprol Xl] 1 tab PO BID 03/25/14 04/20/19 Simvastatin 1 tab PO DAILY 03/25/14 04/20/19 Aspirin [Aspir 81] 81 g PO DAILY 08/01/14 04/20/19 Metformin HCl 500 mg PO BID 08/01/14 04/20/19 Hydrocodone/Acetaminophen [[place] 1 each PO Q6H PRN #20 tablet 12/18/15 04/20/19 5-325 Tablet] Cholecalciferol (Vitamin D3) 1 tab PO DAILY 01/27/16 04/20/19 [Vitamin D3] Fluticasone [Flonase] 1 sprays CRISSY BID #1 bottle 02/11/18 04/20/19 Calcium Carbonate/Vitamin D3 3 each PO DAILY 04/20/19 04/20/19 [Calcium 600 + Vit D 400 Tablet] Doxycycline Hyclate 100 mg PO BID #20 capsule 05/01/19 - Allergies Allergies/Adverse Reactions: Allergies Allergy/AdvReac Type Severity Reaction Status Date / Time No Known Drug Allergies Allergy Verified 05/01/19 14:26 - Social History Does the pt smoke?: No Smoking Status: Never smoker Does the pt drink ETOH?: No Does the pt have substance abuse?: No - Immunizations Immunizations are current?: Yes - POLST Patient has POLST: No PD ED PE NORMAL - Vitals Vital signs reviewed: Yes - General General: Alert and oriented X 3 - HEENT HEENT: PERRL - Neck Neck: Supple, no meningeal sign - Cardiac Cardiac: RRR - Respiratory Respiratory: Other (Normal work of breathing, slight crackles on the left mid lung.) - Abdomen Abdomen: Soft, Non tender, Non distended - Derm Derm: Warm and dry - Extremities Extremities: No deformity - Neuro Neuro: Alert and oriented X 3 - Psych Psych: Normal mood, Normal affect Results - Vitals Vitals: Vital Signs - 24 hr 05/01/19 14:24 Temperature 36.5 C Heart Rate 85 Respiratory 20 Rate Blood Pressure 131/72 H O2 Saturation 96 Oxygen O2 Source Room air - Labs Labs: Laboratory Tests 05/01/19 05/01/19 14:43 14:43 WBC 6.5 RBC 3.44 L Hgb 10.4 L Hct 31.7 L MCV 92.2 MCH 30.2 MCHC 32.8 RDW 18.0 H Plt Count 205 MPV 10.5 Neut # (Auto) 4.5 Lymph # (Auto) 0.7 L [place] # (Auto) 0.7 Eos # (Auto) 0.5 Baso # (Auto) 0.0 Absolute Nucleated RBC 0.00 Nucleated RBC % 0.0 Sodium 131 L Potassium 4.0 Chloride 96 L Carbon Dioxide 25 Anion Gap 10.0 BUN 14 Creatinine 0.6 Estimated GFR (MDRD) 95 Glucose 129 H Calcium 9.1 Total Bilirubin 1.1 H AST 21 ALT 11 Alkaline Phosphatase 70 Total Protein 6.7 Albumin 2.8 L Globulin 3.9 Albumin/Globulin Ratio 0.7 L Lipase 28 - Rads (name of study) CXR Radiology: Other (Multifocal multi lobar airspace disease and left-sided Port-A-Cath opacities are new from the prior examination) PD MEDICAL DECISION MAKING - ED course Complexity details: considered differential (Pneumonia, pleural effusion, cancer recurrence, radiation side effect, Pulmonary embolism) ED course: On arrival patient is well-appearing, she has normal oxygen saturations and heart rate. She has no signs of DVT on exam no history of DVT, and no pleuritic chest pain, hypoxia, tachycardia to suggest this diagnosis. Her symptoms would be very atypical for ACS, and her troponin is negative making this exceedingly unlikely. Her labs are notable for a stable hyponatremia and hypochloremia, and a chronic anemia which is also fairly stable. I shared these results with the patient, who is aware of them and will follow-up with her primary care provider. Chest x-ray shows multifocal airspace disease which is concerning for possible pneumonia given her symptoms and a new onset of cough. Radiation changes are possible though these findings are not seen in her her most recent imaging, and the multifocal nature of them raises my concern for infection. I discussed these findings with the patient, and using shared decision making we decided to try a course of antibiotics, if she is not having improvement in her symptoms or is having worsening she return to the emergency department and would be reasonable to obtain a CT evaluation at that time for further detailed investigation of her lungs. Patient is in agreement, and is feeling well enough to go home. She will touch base with her oncologist as she is slated to start immunotherapy next week, And this may have to be delayed. She was subsequently discharged home in the care of her family. Departure - Departure Disposition: 01 Home, Self Care Clinical Impression: Pneumonia Qualifiers: Pneumonia type: due to unspecified organism Laterality: bilateral Lung location: unspecified part of lung Qualified Code(s): J18.9 - Pneumonia, unspecified organism Condition: Good Instructions: ED Pneumonia Adult Follow-Up: Magdi Troy DO [Primary Care Provider] - Within 1 week Prescriptions: Doxycycline Hyclate 100 mg PO BID #20 capsule Comments: You were seen today for some cough/chest discomfort, you have some infiltrates on your chest x-ray which may be pneumonia, it is also possible these changes are due to radiation. We will try treatment with an antibiotic to see if you have improvement. If you have any worsening chest pain, trouble breathing, or fever, please return to the emergency department. Otherwise please follow-up with your primary care provider, and discuss with your oncologist whether your next round of immunotherapy should be delayed. Please also follow-up on your anemia, as well as your low sodium and chloride levels, which appears stable from past values. Discharge Date/Time: 05/01/19 16:25
[2019-05-01 15:12] LABS: ALBUMIN 2.8 g/dL (3.2-5.5); ALBUMIN/GLOBULIN RATIO 0.7 (1.0-2.2); BILIRUBIN,TOTAL 1.1 mg/dL (0.2-1.0); CALCIUM 9.1 mg/dL (8.5-10.3); CREATININE 0.6 mg/dL (0.4-1.0); TOTAL PROTEIN 6.7 g/dL (6.7-8.2)
--- NOTE | 2019-05-01 15:14 | XRAY Report ---
Reason: cough Procedure Date: 05/01/2019 Accession Number: [id number] / [id number] Procedure: XR - Chest 2 View X-Ray CPT Code: 20811 FULL RESULT: EXAM: CHEST RADIOGRAPHY EXAM DATE: 05/01/2019 02:51 PM. CLINICAL HISTORY: Cough. COMPARISON: RIBS W/PA CHEST RT 03/23/2019 1:23 PM. TECHNIQUE: 2 views. FINDINGS: Lungs/Pleura: Focal opacities in the left mid lung field and to a lesser extent the right midlung field. These are new from the prior examination. No pleural effusion or pneumothorax. Mediastinum: Heart and mediastinal contours are unremarkable. Other: Left sided Port-A-Cath. IMPRESSION: Multifocal multi-lobar airspace disease. RADIA
[2019-05-01] MEDS ORDERED: DOXYCYCLINE 100 MG TABLET PO STA (16:05)
== END 2019-05-01 16:25 | disposition home or self-care (01) ==
LOC: ED 14:17
DX: J18.9 Pneumonia, unspecified organism (principal); I10 Essential (primary) hypertension; E11.9 Type 2 diabetes mellitus without complications; Z79.84 Long term (current) use of oral hypoglycemic drugs
CPT/HCPCS: 36415; 71046; 80053; 83690; 85025; 99283; 99284; A9270

== ENCOUNTER 2019-05-04 12:13 | Inpatient (IN) | payer MEDICARE, OTHER ==
[2019-05-04 12:52] LABS: BASOPHILS % (AUTO) 0.3 %; EOSINOPHILS # (AUTO) 0.2 10^3/uL (0.0-0.7); EOSINOPHILS % (AUTO) 2.2 %; HGB - HEMOGLOBIN 11.2 g/dL (12.0-16.0); LYMPHOCYTES # (AUTO) 0.5 10^3/uL (1.5-3.5); LYMPHOCYTES % (AUTO) 5.5 %; MEAN CORPUSCULAR HGB CONC 32.5 g/dL (32.0-36.0); MEAN CORPUSCULAR VOLUME 92.5 fL (81.0-99.0); MEAN PLATELET VOLUME 9.9 fL (7.9-10.8); MONOCYTES # (AUTO) 0.9 10^3/uL (0.0-1.0); MONOCYTES % (AUTO) 9.2 %; NEUTROPHILS % (AUTO) 81.7 %; PLT - PLATELET COUNT 232 10^3/uL (130-450); RED BLOOD COUNT 3.73 10^6/uL (4.20-5.40); RED CELL DISTRIBUTION WIDTH 18.4 % (12.0-15.0); WHITE BLOOD COUNT 9.8 x10^3/uL (4.8-10.8)
[2019-05-04 12:55] LABS: VBG BASE EXCESS 1.4 mmol/L (-2 - +2); VBG PCO2 44.4 mmHg (41-51); VBG PH 7.395 (7.31-7.41); VBG PO2 38.6 mmHg (25-47); VBG TOTAL CO2 27.9 mmol/L (24-29)
[2019-05-04 12:59] LABS: INR 1.2 (0.8-1.2); PT - PROTHROMBIN TIME 13.6 secs (9.9-12.6)
[2019-05-04 13:11] LABS: ALBUMIN 3.1 g/dL (3.2-5.5); ALBUMIN/GLOBULIN RATIO 0.7 (1.0-2.2); BILIRUBIN,TOTAL 1.4 mg/dL (0.2-1.0); CALCIUM 10.9 mg/dL (8.5-10.3); CREATININE 0.7 mg/dL (0.4-1.0); TOTAL PROTEIN 7.4 g/dL (6.7-8.2)
--- NOTE | 2019-05-04 15:15 | ED Physician Documentation ---
History of Present Illness - Stated complaint Stated Complaint: SOA, WEAKNESS - Chief complaint Chief Complaint: Resp - Additonal information Additional information: This is an 83-year-old female with a history of lung cancer status post rory motherapy and radiation, who I saw around 48 hours ago, who presents to the emergency department for worsening shortness of breath. Patient presented with shortness of breath several days ago, she had an x-ray which showed multifocal infiltrate, after discussion with the patient we elected to treat with a course of antibiotics, she states that after the antibiotic she has had some vomiting, she has difficulty swallowing the pills. She does have a history of radiation esophagitis. Over the last several days her shortness of breath has worsened, and she feels more winded walking from place to place in her house. Once in a while she will have a little bit of chest discomfort, but nothing persistent. No leg swelling. No history of blood clots or heart failure. Review of Systems Constitutional: denies: Fever Nose: denies: Rhinorrhea / runny nose Cardiac: denies: Calf pain Respiratory: reports: Dyspnea, Cough : denies: Dysuria Skin: denies: Rash Neurologic: reports: Generalized weakness Immunocompromised: reports: Other (Past chemotherapy) PD PAST MEDICAL HISTORY - Past Medical History Past Medical History: Yes Cardiovascular: Hypertension, High cholesterol, Coronary artery disease, [place], Other Respiratory: COPD, Emphysema Neuro: None Endocrine/Autoimmune: Type 2 diabetes GI: None : None HEENT: Chronic vision loss, Macular degeneration Psych: None Musculoskeletal: Chronic back pain Derm: None - Past Surgical History Past Surgical History: Yes 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 Cardiovascular: Coronary stent HEENT: Cataracts - Present Medications Home Medications: Ambulatory Orders Medication Instructions Recorded Confirmed Lisinopril 10 mg PO BID 03/25/14 05/05/19 Simvastatin 40 mg PO QPM 03/25/14 05/05/19 Aspirin [Aspir 81] 81 g PO DAILY 08/01/14 05/05/19 Metformin HCl 500 mg PO BID 08/01/14 05/05/19 Hydrocodone/Acetaminophen [[place] 1 each PO Q6H PRN #20 tablet 12/18/15 05/05/19 5-325 Tablet] Cholecalciferol (Vitamin D3) 1 tab PO DAILY 01/27/16 05/05/19 [Vitamin D3] Fluticasone [Flonase] 1 sprays CRISSY BID #1 bottle 02/11/18 05/05/19 Calcium Carbonate/Vitamin D3 3 each PO DAILY 04/20/19 05/05/19 [Calcium 600 + Vit D 400 Tablet] Clopidogrel Bisulfate [Clopidogrel] 75 mg PO DAILY 05/05/19 05/05/19 Magic Mouthwash 5 - 15 ml PO Q4H PRN 05/05/19 05/05/19 Metoprolol Tartrate 25 mg PO BID 05/05/19 05/05/19 - Allergies Allergies/Adverse Reactions: Allergies Allergy/AdvReac Type Severity Reaction Status Date / Time No Known Drug Allergies Allergy Verified 05/01/19 14:26 - Social History Does the pt smoke?: No Smoking Status: Never smoker Does the pt drink ETOH?: No Does the pt have substance abuse?: No - Immunizations Immunizations are current?: Yes - POLST Patient has POLST: No PD ED PE NORMAL - Vitals Vital signs reviewed: Yes - General General: Alert and oriented X 3, No acute distress - HEENT HEENT: PERRL - Neck Neck: Supple, no meningeal sign - Cardiac Cardiac: Other (Tachycardic, regular rhythm) - Respiratory Respiratory: Other (Slightly increased work of breathing, fine crackles throughout. ) - Abdomen Abdomen: Soft, Non tender, Non distended - Derm Derm: Warm and dry - Extremities Extremities: No deformity - Neuro Neuro: Alert and oriented X 3 - Psych Psych: Normal mood, Normal affect Results - Vitals Vitals: Oxygen O2 Source Nasal cannula - EKG (time done) 15:57 Other comments: Other comments (13, rhythm sinus tachycardia, borderline LVH by voltage criteria, slight lateral precordial ST depressions consistent with LVH. No ST segment elevation. QTc 456) - Labs Labs: Laboratory Tests 05/04/19 05/04/19 05/04/19 12:45 12:45 12:45 WBC 9.8 RBC 3.73 L Hgb 11.2 L Hct 34.5 L MCV 92.5 MCH 30.0 MCHC 32.5 RDW 18.4 H Plt Count 232 MPV 9.9 Neut # (Auto) 8.0 H Lymph # (Auto) 0.5 L [place] # (Auto) 0.9 Eos # (Auto) 0.2 Baso # (Auto) 0.0 Absolute Nucleated RBC 0.00 Total Counted Band Neuts % (Manual) Abnorm Lymph % (Manual) Nucleated RBC % 0.0 Neutrophils # (Manual) Lymphocytes # (Manual) Monocytes # (Manual) Eosinophils # (Manual) Basophils # (Manual) Differential Comment WBC Morphology Platelet Estimate Platelet Morphology RBC Morph Micro Appear PT 13.6 H INR 1.2 VBG pH VBG pCO2 VBG pO2 VBG HCO3 VBG Total CO2 VBG O2 Saturation VBG Base Excess Sodium 132 L Potassium 3.9 Chloride 93 L Carbon Dioxide 27 Anion Gap 12.0 BUN 14 Creatinine 0.7 Estimated GFR (MDRD) 80 L Glucose 132 H POC Whole Bld Glucose Lactic Acid Calcium 10.9 H Total Bilirubin 1.4 H AST 19 ALT 12 Alkaline Phosphatase 67 Troponin I High Sens B-Natriuretic Peptide Total Protein 7.4 Albumin 3.1 L Globulin 4.3 H Albumin/Globulin Ratio 0.7 L Lipase 28 05/04/19 05/04/19 05/04/19 12:45 12:45 12:45 WBC RBC Hgb Hct MCV MCH MCHC RDW Plt Count MPV Neut # (Auto) Lymph # (Auto) [place] # (Auto) Eos # (Auto) Baso # (Auto) Absolute Nucleated RBC Total Counted Band Neuts % (Manual) Abnorm Lymph % (Manual) Nucleated RBC % Neutrophils # (Manual) Lymphocytes # (Manual) Monocytes # (Manual) Eosinophils # (Manual) Basophils # (Manual) Differential Comment WBC Morphology Platelet Estimate Platelet Morphology RBC Morph Micro Appear PT INR VBG pH 7.395 VBG pCO2 44.4 VBG pO2 38.6 VBG HCO3 26.6 VBG Total CO2 27.9 VBG O2 Saturation 70.5 VBG Base Excess 1.4 Sodium Potassium Chloride Carbon Dioxide Anion Gap BUN Creatinine Estimated GFR (MDRD) Glucose POC Whole Bld Glucose Lactic Acid Calcium Total Bilirubin AST ALT Alkaline Phosphatase Troponin I High Sens 16.0 H* B-Natriuretic Peptide 129 H Total Protein Albumin Globulin Albumin/Globulin Ratio Lipase 05/04/19 05/05/19 05/05/19 18:00 00:33 06:15 WBC 2.8 L RBC 3.41 L Hgb 10.1 L Hct 31.1 L MCV 91.2 MCH 29.6 MCHC 32.5 RDW 18.2 H Plt Count 214 MPV 9.9 Neut # (Auto) Not Reportable Lymph # (Auto) Not Reportable [place] # (Auto) Not Reportable Eos # (Auto) Not Reportable Baso # (Auto) Not Reportable Absolute Nucleated RBC Not Reportable Total Counted 100 Band Neuts % (Manual) 1 Abnorm Lymph % (Manual) 0 Nucleated RBC % Not Reportable Neutrophils # (Manual) 1.8 Lymphocytes # (Manual) 0.8 L Monocytes # (Manual) 0.2 Eosinophils # (Manual) 0.0 Basophils # (Manual) 0.0 Differential Comment MANUAL DIFFERENTIAL WBC Morphology NORMAL APPEARANCE Platelet Estimate NORMAL (130-450,000) Platelet Morphology NORMAL APPEARANCE RBC Morph Micro Appear NORMAL APPEARANCE PT INR VBG pH VBG pCO2 VBG pO2 VBG HCO3 VBG Total CO2 VBG O2 Saturation VBG Base Excess Sodium Potassium Chloride Carbon Dioxide Anion Gap BUN Creatinine Estimated GFR (MDRD) Glucose POC Whole Bld Glucose Lactic Acid Calcium Total Bilirubin AST ALT Alkaline Phosphatase Troponin I High Sens 20.7 H* 21.5 H* B-Natriuretic Peptide Total Protein Albumin Globulin Albumin/Globulin Ratio Lipase 05/05/19 05/05/19 05/05/19 06:15 06:15 07:49 WBC RBC Hgb Hct MCV MCH MCHC RDW Plt Count MPV Neut # (Auto) Lymph # (Auto) [place] # (Auto) Eos # (Auto) Baso # (Auto) Absolute Nucleated RBC Total Counted Band Neuts % (Manual) Abnorm Lymph % (Manual) Nucleated RBC % Neutrophils # (Manual) Lymphocytes # (Manual) Monocytes # (Manual) Eosinophils # (Manual) Basophils # (Manual) Differential Comment WBC Morphology Platelet Estimate Platelet Morphology RBC Morph Micro Appear PT INR VBG pH VBG pCO2 VBG pO2 VBG HCO3 VBG Total CO2 VBG O2 Saturation VBG Base Excess Sodium 135 Potassium 3.6 Chloride 100 L Carbon Dioxide 26 Anion Gap 9.0 BUN 10 Creatinine 0.7 Estimated GFR (MDRD) 80 L Glucose 138 H POC Whole Bld Glucose 151 H Lactic Acid Calcium 9.2 Total Bilirubin AST ALT Alkaline Phosphatase Troponin I High Sens 17.7 H* B-Natriuretic Peptide Total Protein Albumin Globulin Albumin/Globulin Ratio Lipase 05/05/19 08:18 WBC RBC Hgb Hct MCV MCH MCHC RDW Plt Count MPV Neut # (Auto) Lymph # (Auto) [place] # (Auto) Eos # (Auto) Baso # (Auto) Absolute Nucleated RBC Total Counted Band Neuts % (Manual) Abnorm Lymph % (Manual) Nucleated RBC % Neutrophils # (Manual) Lymphocytes # (Manual) Monocytes # (Manual) Eosinophils # (Manual) Basophils # (Manual) Differential Comment WBC Morphology Platelet Estimate Platelet Morphology RBC Morph Micro Appear PT INR VBG pH VBG pCO2 VBG pO2 VBG HCO3 VBG Total CO2 VBG O2 Saturation VBG Base Excess Sodium Potassium Chloride Carbon Dioxide Anion Gap BUN Creatinine Estimated GFR (MDRD) Glucose POC Whole Bld Glucose Lactic Acid 1.3 Calcium Total Bilirubin AST ALT Alkaline Phosphatase Troponin I High Sens B-Natriuretic Peptide Total Protein Albumin Globulin Albumin/Globulin Ratio Lipase - Rads (name of study) CT PE Radiology: Other (Scattered endobronchial and ground glass opacification. No PE or dissection.) PD MEDICAL DECISION MAKING - ED course Complexity details: considered differential (Pneumonia, viral infection, PE, ACS, dysrhythmia, radiation damage, COPD) ED course: Pt returns with worsening shortness of breath and inability to take antibiotics for a presumed pneumonia. EKG shows borderline LVH. CT PE shows scattered ground glass opacities and no PE or dissection. When patient ambulates she desaturates to the low 80s on room air. Labs are unrevealing other than a very slightly increasing high sensitivity troponin, though this is still in indeterminate range at ~20 and may be baseline for patient. I doubt ACS given her symptoms and presentation. She was started on abx for potential pneumonia (it is somewhat unclear to what extent infection versus other causes such as radiation damage is causing her symptoms), and admitted for further evaluation and treatment of her hypoxia and cardiac rule out. I discussed the results with the patient and the plan of care, which she is in agreement with. Pt was subsequently admitted to the hospital. Departure - Departure Disposition: ED Place in Observation Clinical Impression: Hypoxia Discharge Date/Time: 05/04/19 21:15
[2019-05-04] MEDS ORDERED: SODIUM CHLORIDE 0.9% 500 ML IV ONE (15:47)
[2019-05-04] MEDS ORDERED: IOVERSOL 320 100 ML VIAL IVP ONE ×2 (16:00→16:30)
--- NOTE | 2019-05-04 16:59 | CT Report ---
Reason: SOB, hx lung cancer and radiation Procedure Date: 05/04/2019 Accession Number: [id number] / [id number] Procedure: CT - ANGIO CHEST W/WO CPT Code: FULL RESULT: EXAM: CT ANGIOGRAM CHEST EXAM DATE: 05/04/2019 04:28 PM. CLINICAL HISTORY: SOB, hx lung cancer and radiation. COMPARISON: CHEST W/O 04/04/2019 4:40 PM CHEST W/O 12/31/2018 7:13 AM. TECHNIQUE: Routine helical imaging was performed through the chest in the pulmonary arterial phase. IV Contrast: OPTI 320 80ML. Reconstructions: Coronal 3-D MIP reconstructions.Sagittal and coronal. In accordance with CT protocol optimization, one or more of the following dose reduction techniques were utilized for this exam: automated exposure control, adjustment of mA and/or KV based on patient size, or use of iterative reconstructive technique. FINDINGS: Pulmonary Arteries: Diagnostic quality: Adequate through the segmental arteries. No evidence for acute or chronic pulmonary emboli. No evidence of central embolus or right heart strain. Lungs/Pleura: There is centrilobular emphysema. There is scattered subpleural cyst formation which could represent honeycombing or paraseptal emphysema. There is a cavitary nodule measuring 1.6 x 1.9 cm within the left lower lobe. It is contiguous with bronchi supplying the left lower lobe. There is scattered endobronchial opacification within the lower lobes. There is a 1.5 x 1.0 cm nodular density within the left upper lobe (image 103 series 5). This is relatively stable. There is been interval development of scattered upper lung peribronchovascular groundglass opacity with some mild interlobular septal thickening. There is no evidence of pleural effusion. There is no pneumothorax. Mediastinum: There is mild cardiomegaly. There are no enlarged axillary or supraclavicular lymph nodes. No enlarged mediastinal or hilar lymph nodes. Thoracic Aorta: There are atheromatous calcifications of the aorta. No acute vascular abnormalities are seen. Upper Abdomen: The visualized portions of the upper abdominal organs demonstrate no acute abnormalities. Other: None. IMPRESSION: 1. No evidence of acute pulmonary embolism. 2. No evidence of aortic dissection. 3. Mild interval decrease in size of left lower lobe cavitary nodule. Relatively stable size of focal peribronchovascular density within the left upper lobe. 4. There is scattered endobronchial opacification within the lower lobes. 5. There is patchy peribronchovascular groundglass opacity within the upper lobes. Differential considerations include diffuse alveolar damage, pulmonary hemorrhage, or viral infection. This would be an atypical distribution for lung edema secondary to heart failure. 6. There is centrilobular and paraseptal emphysema. RADIA
[2019-05-04] MEDS ORDERED: cefTRIAXone 1 GM in SODIUM CHLORIDE 0.9% MINIBAG 100 ML IV STA (20:38)
[2019-05-04] MEDS ORDERED: AZITHROMYCIN INJ 500 MG in SODIUM CHLORIDE 0.9% 250 ML IV STA ×2 (20:39→22:26)
[2019-05-04] MEDS ORDERED: SODIUM CHLORIDE 0.9% 500 ML IV PRN (22:07)
--- NOTE | 2019-05-04 22:49 | HISTORY & PHYSICAL EXAMINATION ---
Chief Complaint - Chief Complaint Chief Complaint: dyspnea History of Present Illness - Admitted From Admitted From:: [facility] - History Obtained From Records Reviewed: yes History obtained from: patient - History of Present Illness HPI Comment/Other: Patient seen on 05/04/19 around 22:00pm Patient is an 83 y/o female who presented to the ED with dyspnea. She says she just couldn't catch her breath. Her symptoms started on 3 days ago. She presen rao to the ED 3 days ago and was prescribed doxycycline for pneumonia after work up. She was only able to take 3 pills because she became very nauseous and vomited on Saturday. She also complains of an intermittent dry cough especially when she takes deep breaths. She denied chest pain, abd pain, fever or chills. She sounds very rhonchous in the lung bases bilaterally. CTAngio of the chest showed scattered endobronchial opacification within the lower lobes, patchy peribronchovascular groundglass opacity within the upper lobes for which the differential included diffuse alveolar damage, pulmonary hemorrhage or viral infection. In the ED her O2Sat dropped to 83% with ambulation. At bedside she appears to be resting comfortably. She is very frail appearing. She lost her hair from the therapy she received. 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 She completed radiation therapy on 03/17/19 and is to follow up with Rad Onc on 05/19/19. She has been having some difficulty swallowing since then. She was given a swish and swallow medication which she has been using. She used it on Saturday, then attempted to drink water afterwards but aspirated. She had been told it would take about 2-3 weeks for her symptoms or difficulty with swallowing to improve. She was to follow up with her Oncologist (Dr Lima) at the [facility] [place] today 05/04/19 about beginning Immunotherapy but had to cancel because she came to the ED. History - Past Medical History Cardiovascular: reports: Hypertension, High cholesterol, Coronary artery disease, AR, Other Respiratory: reports: COPD, Emphysema Neuro: reports: None Endocrine/Autoimmune: reports: Type 2 diabetes GI: reports: None : reports: None HEENT: reports: Chronic vision loss, Macular degeneration Psych: reports: None Musculoskeletal: reports: Chronic back pain Derm: reports: None MRSA Hx?: No - Past Surgical History Ortho: reports: Arthroscopic surgery /[employer]: reports: Hysterectomy Cardiovascular: reports: Coronary stent HEENT: reports: Cataracts - Family & Social History Family History Comment/Other: Family history of heart failure. Brother of an unknown cancer. Social History Notes: She lives alone and is independnet of activities of daily living. Her daughter lives near by, She quit smoking 10 years ago but previously smoked for about 60 years. She endorses mild to moderate alcohol use and denies illicit drug use - POLST Patient has POLST: No POLST Status: Full Code Meds/Allgy - Home Medications Home Medications: Ambulatory Orders Medication Instructions Recorded Confirmed Lisinopril 1 tab PO BID 03/25/14 04/20/19 Metoprolol Succinate [Toprol Xl] 1 tab PO BID 03/25/14 04/20/19 Simvastatin 1 tab PO DAILY 03/25/14 04/20/19 Aspirin [Aspir 81] 81 g PO DAILY 08/01/14 04/20/19 Metformin HCl 500 mg PO BID 08/01/14 04/20/19 Hydrocodone/Acetaminophen [Newberg 1 each PO Q6H PRN #20 tablet 12/18/15 04/20/19 5-325 Tablet] Cholecalciferol (Vitamin D3) 1 tab PO DAILY 01/27/16 04/20/19 [Vitamin D3] Fluticasone [Flonase] 1 sprays CRISSY BID #1 bottle 02/11/18 04/20/19 Calcium Carbonate/Vitamin D3 3 each PO DAILY 04/20/19 04/20/19 [Calcium 600 + Vit D 400 Tablet] Doxycycline Hyclate 100 mg PO BID #20 capsule 05/01/19 - Allergies Allergies/Adverse Reactions: Allergies Allergy/AdvReac Type Severity Reaction Status Date / Time No Known Drug Allergies Allergy Verified 05/01/19 14:26 Prior Level of Functionality: She is independent of activities of daily living Exam - Vital Signs Vital Signs: Vital Signs x48h Temp Pulse Pulse Resp BP BP Pulse Ox 05/04/19 21:24 36.7 C 111 H 18 167/85 H 96 05/04/19 20:14 115 H 20 178/125 H 92 05/04/19 18:15 83 L 05/04/19 18:00 113 H 24 158/103 H 89 L 05/04/19 16:38 111 H 24 182/93 H 95 - Physical Exam General Appearance: positive: No acute distress, Alert, Other (Frail) Eyes Bilateral: positive: Normal inspection, PERRL, EOMI ENT: positive: ENT inspection nml Neck: positive: No JVD, Trachea midline Respiratory: positive: Chest non-tender, Rhonchi (bilateral lung bases) Cardiovascular: positive: Tachycardia Abdomen: positive: Non-tender, Nml bowel sounds, No distention. 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 Patient's respiratory status is stable on oxygen. There is no hemoptysis If patient's symptoms should worsen, will consider talking to a sheltered workshop executive director (2) Pneumonia Conclusion/Plan: On rocephin and azithromycin. Qualifiers: Pneumonia type: due to unspecified organism Laterality: bilateral Lung location: unspecified part of lung Qualified Code(s): J18.9 - Pneumonia, unspecified organism (3) Lung cancer Conclusion/Plan: Stage IIB CT scan showed nodules are smaller in size. Patient is s/p chemo and radiation therapy She is due to start immunotherapy with durvalumab soon She sees Dr Lima at the [facility] [place] (4) Hypertension Conclusion/Plan: On metoprolol and lisinopril Will resume once verified (5) Diabetes mellitus Conclusion/Plan: Will hold metformin. Accu checks. SSI - Lab Results Fish Bones: 05/04/19 12:45 05/04/19 12:45 Core Measures - Anticipated LOS I expect patient to be DC'd or transferred within 96 hours.: Yes - DVT/VTE - Prophylaxis VTE/DVT Device ordered at admit?: Yes VTE/DVT Prophylaxis med ordered at admit?: Yes
[2019-05-05] MEDS: SODIUM CHLORIDE FLUSH 0.9% 10 ML SYRINGE IVP SCH ×4 (00:08→23:41)
[2019-05-05] MEDS ORDERED: METOPROLOL 5 MG/5 ML VIAL IVP STA (00:26)
[2019-05-05] MEDS ORDERED: SODIUM CHLORIDE 0.9% 1,000 ML IV SCH (01:00)
[2019-05-05] MEDS: PANTOPRAZOLE 40 MG VIAL IVP SCH (05:59)
[2019-05-05] MEDS: SODIUM CHLORIDE FLUSH 0.9% 10 ML SYRINGE IVP PRN ×2 (06:00→22:12)
[2019-05-05 06:22] LABS: EOSINOPHILS % (AUTO) 0.4 %; HGB - HEMOGLOBIN 10.1 g/dL (12.0-16.0); MEAN CORPUSCULAR HEMOGLOBIN 29.6 pg (27.0-31.0); MEAN CORPUSCULAR HGB CONC 32.5 g/dL (32.0-36.0); MEAN CORPUSCULAR VOLUME 91.2 fL (81.0-99.0); MEAN PLATELET VOLUME 9.9 fL (7.9-10.8); MONOCYTES % (AUTO) 6.4 %; NEUTROPHILS % (AUTO) 62.5 %; PLT - PLATELET COUNT 214 10^3/uL (130-450); RED BLOOD COUNT 3.41 10^6/uL (4.20-5.40); RED CELL DISTRIBUTION WIDTH 18.2 % (12.0-15.0); WHITE BLOOD COUNT 2.8 x10^3/uL (4.8-10.8)
[2019-05-05 06:29] LABS: CALCIUM 9.2 mg/dL (8.5-10.3); CREATININE 0.7 mg/dL (0.4-1.0)
[2019-05-05 06:41] LABS: ABNORMAL LYMPHS % (MANUAL) 0 %
[2019-05-05 06:44] LABS: BAND NEUTROPHILS % (MANUAL) 1 %; BASOPHILS % (MANUAL) 1 %; LYMPHOCYTES # (MANUAL) 0.8 10^3/uL (1.5-3.5); LYMPHOCYTES % (MANUAL) 28 %; MONOCYTES # (MANUAL) 0.2 10^3/uL (0.0-1.0)
[2019-05-05 06:46] LABS: DIFFERENTIAL COMMENT MANUAL DIFFERENTIAL; PLATELET ESTIMATE, MANUAL NORMAL (130-450,000) (NORMAL); PLATELET MORPHOLOGY NORMAL APPEARANCE (NORMAL); RBC MORPHOLOGY (MULTIPLE) NORMAL APPEARANCE (NORMAL)
[2019-05-05] MEDS: METOPROLOL SUCCINATE 25 MG TABLET PO SCH ×3 (08:32→21:22)
[2019-05-05] MEDS: INSULIN ASPART 300 UNIT/3 ML PEN SUBQ SCH ×3 (08:37→22:15)
[2019-05-05] MEDS: POLYETHYLENE GLYCOL 3350 17 GM PACKET PO SCH (08:37)
[2019-05-05] MEDS ORDERED: CALCIUM CARBONATE CHEW 500 MG TABLET PO PRN (11:09)
[2019-05-05] MEDS: methylPREDNISolone SUCCINATE 40 MG/ML VIAL IVP SCH ×2 (11:31→22:11)
[2019-05-05] MEDS: ACETAMINOPHEN 325 MG TABLET PO PRN ×2 (11:44→23:47)
--- NOTE | 2019-05-05 13:40 | PROVIDER PROGRESS NOTE ---
Assessment/Plan - Problem List (1) Acute respiratory failure with hypoxia Assessment/Plan: improved. pt need 1 liter of O2 to remain 96% sats. pt report she did not take O2 at home. 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 pt denies N/V or hemoptysis. pt's HGB is relative stable, slight hemodilated. meanwhile pt is high risk of DVT from her lung cancer and difficult to have ambulation, continue home aspirin and Plavix continue antibiotics continue lab monitor, H&H (2) Pneumonia Conclusion/Plan: CTA reveals possible pneumonia, continue rocephin and azithromycin. (3) COPD pt has hx of cigarette smoker, hx of COPD, and pt present left side wheezing and significant SOB order lower dosage of steroid, PRN of Duoneb supplement of O2 as needed (4) shortness of breath pt report she had significant SOB on exertion, it may be caused lung cancer, infection and COPD continue treatment of infection, breath treatment, and supplement of O2, pt may need to have desat study to see if pt need O2 at home (5) Lung cancer Conclusion/Plan: Stage IIB, advise pt continue to see Dr Lima at the [facility] (6) Hypertension Conclusion/Plan: stable, resume home meds metoprolol and lisinopril (7) Diabetes mellitus Conclusion/Plan: stable. Will hold metformin. Accu checks. SSI - Current Meds Current Meds: Current Medications Generic Name Dose Route Start Last Admin Trade Name Freq PRN Reason Stop Dose Admin Acetaminophen 650 mg 05/04/19 21:13 05/05/19 11:44 Tylenol PO 650 mg Q4HR PRN Administration Pain 1 to 4 Calcium Carbonate/Glycine 500 mg 05/05/19 11:09 05/05/19 11:31 Tums PO 500 mg BID PRN Administration Heartburn Insulin Aspart 1 - 5 unit 05/05/19 08:00 05/05/19 11:45 Novolog SUBQ Not Given 0800,1200,1700,2100 REPLACED BY [facility] Protocol Methylprednisolone 30 mg 05/05/19 11:30 05/05/19 11:31 Solu-Medrol (40mg Vial) IVP 30 mg TID MILADY Administration Metoprolol Succinate 25 mg 05/05/19 07:43 05/05/19 08:37 Toprol Xl PO Not Given BID REPLACED BY [facility] Pantoprazole Sodium 40 mg 05/05/19 07:00 05/05/19 05:59 Protonix IVP 40 mg QDAC MILADY Administration Polyethylene Glycol 17 gm 05/05/19 09:00 05/05/19 08:37 Miralax PO 17 gm DAILY MILADY Administration Sodium Chloride 10 ml 05/04/19 21:13 05/05/19 06:00 Normal Saline Flush 0.9% IVP 10 ml PRN PRN Administration NEEDED PER PROVIDER ORDERS Sodium Chloride 10 ml 05/05/19 01:00 05/05/19 06:00 Normal Saline Flush 0.9% IVP 10 ml 0100,0900,1700 MILADY Administration - Lab Result Fish Bone Diagrams: 05/05/19 06:15 05/05/19 06:15 - Additional Planning My Orders: My Active Orders 05/05/[address] [ST] Routine 05/05/19 07:43 Metoprolol Succinate [Toprol Xl] 25 mg PO BID 05/05/19 11:09 Calcium Carbonate [Tums] 500 mg PO BID PRN 05/05/19 11:30 methylPREDNISolone SUCCINATE [SOLU-Medrol (40MG VIAL)] 30 mg IVP TID 05/05/19 13:37 Echo Transthoracic w/Definity [ECHO] Stat 05/06/19 05:00 CMP [COMPREHENSIVE METABOLIC PANEL] [CHEM] DAILYLAB 05/07/19 05:00 CMP [COMPREHENSIVE METABOLIC PANEL] [CHEM] DAILYLAB 05/08/19 05:00 CMP [COMPREHENSIVE METABOLIC PANEL] [CHEM] DAILYLAB 05/09/19 05:00 CMP [COMPREHENSIVE METABOLIC PANEL] [CHEM] DAILYLAB Subjective - Subjective Patient Reports: Feeling Better Objective Vital Signs: Vital Signs - 24 hr 05/04/19 05/04/19 05/04/19 14:36 16:38 18:00 Temperature Heart Rate 118 H 111 H 113 H Heart Rate [ Brachial] Respiratory 20 24 24 Rate Blood Pressure 146/111 H 182/93 H 158/103 H Blood Pressure [Left Brachial artery] Blood Pressure [Right Brachial artery] O2 Saturation 95 95 89 L 05/04/19 05/04/19 05/04/19 18:15 20:14 21:24 Temperature 36.7 C Heart Rate 115 H Heart Rate [ 111 H Brachial] Respiratory 20 18 Rate Blood Pressure 178/125 H Blood Pressure [Left Brachial artery] Blood Pressure 167/85 H [Right Brachial artery] O2 Saturation 83 L 92 96 05/04/19 05/05/19 05/05/19 23:57 01:30 03:40 Temperature 36.8 C 36.9 C Heart Rate Heart Rate [ 105 H 111 H Brachial] Respiratory 16 18 18 Rate Blood Pressure Blood Pressure 140/65 H [Left Brachial artery] Blood Pressure 141/72 H 140/74 H [Right Brachial artery] O2 Saturation 97 95 05/05/19 07:50 Temperature 36.5 C Heart Rate Heart Rate [ 107 H Brachial] Respiratory 27 H Rate Blood Pressure Blood Pressure 115/63 [Left Brachial artery] Blood Pressure [Right Brachial artery] O2 Saturation 96 Oxygen O2 Source Nasal cannula I&O (Last 24 Hrs): Intake and Output Totals x24h 05/03/19 05/04/19 05/05/19 23:59 23:59 23:59 Intake Total 845.833 654.167 Balance 845.833 654.167 General: Alert, No acute distress HEENT: Atraumatic Neck: Supple Lymphatic: no adenopathy Neuro: Alert, Oriented Times 3 Cardiovascular: Regular rate Respiratory: Chest non-tender, No respiratory distress, Wheezes, Rhonchi Abdomen: Normal bowel sounds, Soft - Results Results: Laboratory Results WBC 2.8 x10^3/uL (4.8-10.8) L 05/05/19 06:15 RBC 3.41 10^6/uL (4.20-5.40) L 05/05/19 06:15 Hgb 10.1 g/dL (12.0-16.0) L 05/05/19 06:15 Hct 31.1 % (37.0-47.0) L 05/05/19 06:15 MCV 91.2 fL (81.0-99.0) 05/05/19 06:15 MCH 29.6 pg (27.0-31.0) 05/05/19 06:15 MCHC 32.5 g/dL (32.0-36.0) 05/05/19 06:15 RDW 18.2 % (12.0-15.0) H 05/05/19 06:15 Plt Count 214 10^3/uL (130-450) 05/05/19 06:15 MPV 9.9 fL (7.9-10.8) 05/05/19 06:15 Neut # (Auto) Not Reportable 05/05/19 06:15 Lymph # (Auto) Not Reportable 05/05/19 06:15 Amelia # (Auto) Not Reportable 05/05/19 06:15 Eos # (Auto) Not Reportable 05/05/19 06:15 Baso # (Auto) Not Reportable 05/05/19 06:15 Absolute Nucleated RBC Not Reportable 05/05/19 06:15 Total Counted 100 05/05/19 06:15 Band Neuts % (Manual) 1 % (0-10) 05/05/19 06:15 Abnorm Lymph % (Manual) 0 % 05/05/19 06:15 Nucleated RBC % Not Reportable 05/05/19 06:15 Neutrophils # (Manual) 1.8 10^3/uL (1.5-6.6) 05/05/19 06:15 Lymphocytes # (Manual) 0.8 10^3/uL (1.5-3.5) L 05/05/19 06:15 Monocytes # (Manual) 0.2 10^3/uL (0.0-1.0) 05/05/19 06:15 Eosinophils # (Manual) 0.0 10^3/uL (0-0.7) 05/05/19 06:15 Basophils # (Manual) 0.0 10^3/uL (0-0.1) 05/05/19 06:15 Differential Comment MANUAL DIFFERENTIAL 05/05/19 06:15 WBC Morphology NORMAL APPEARANCE (NORMAL) 05/05/19 06:15 Platelet Estimate NORMAL (130-450,000) (NORMAL) 05/05/19 06:15 Platelet Morphology NORMAL APPEARANCE (NORMAL) 05/05/19 06:15 RBC Morph Micro Appear NORMAL APPEARANCE (NORMAL) 05/05/19 06:15 PT 13.6 secs (9.9-12.6) H 05/04/19 12:45 INR 1.2 (0.8-1.2) 05/04/19 12:45 VBG pH 7.395 (7.31-7.41) 05/04/19 12:45 VBG pCO2 44.4 mmHg (41-51) 05/04/19 12:45 VBG pO2 38.6 mmHg (25-47) 05/04/19 12:45 VBG HCO3 26.6 mmol/L (23-28) 05/04/19 12:45 VBG Total CO2 27.9 mmol/L (24-29) 05/04/19 12:45 VBG O2 Saturation 70.5 % (60-80) 05/04/19 12:45 VBG Base Excess 1.4 mmol/L (-2 - +2) 05/04/19 12:45 Sodium 135 mmol/L (135-145) 05/05/19 06:15 Potassium 3.6 mmol/L (3.5-5.0) 05/05/19 06:15 Chloride 100 mmol/L (101-111) L 05/05/19 06:15 Carbon Dioxide 26 mmol/L (21-32) 05/05/19 06:15 Anion Gap 9.0 (6-13) 05/05/19 06:15 BUN 10 mg/dL (6-20) 05/05/19 06:15 Creatinine 0.7 mg/dL (0.4-1.0) 05/05/19 06:15 Estimated GFR (MDRD) 80 (>89) L 05/05/19 06:15 Glucose 138 mg/dL (70-100) H 05/05/19 06:15 POC Whole Bld Glucose 140 mg/dL (70 - 100) H 05/05/19 11:41 Lactic Acid 1.3 mmol/L (0.5-2.2) 05/05/19 08:18 Calcium 9.2 mg/dL (8.5-10.3) 05/05/19 06:15 Total Bilirubin 1.4 mg/dL (0.2-1.0) H 05/04/19 12:45 AST 19 IU/L (10-42) 05/04/19 12:45 ALT 12 IU/L (10-60) 05/04/19 12:45 Alkaline Phosphatase 67 IU/L (42-121) 05/04/19 12:45 Troponin I High Sens 17.7 pg/mL (2.3-14.8) H* 05/05/19 06:15 B-Natriuretic Peptide 129 pg/mL (5-100) H 05/04/19 12:45 Total Protein 7.4 g/dL (6.7-8.2) 05/04/19 12:45 Albumin 3.1 g/dL (3.2-5.5) L 05/04/19 12:45 Globulin 4.3 g/dL (2.1-4.2) H 05/04/19 12:45 Albumin/Globulin Ratio 0.7 (1.0-2.2) L 05/04/19 12:45 Lipase 28 U/L (22-51) 05/04/19 12:45 - Procedures Procedures: Procedures INSERTION OF INFUSION DEV INTO SUP VENA CAVA, PERC APPROACH (03/02/19) Sepsis Event Note (H) - Evaluation Current Stage of Sepsis: Ruled out ABX Reporting Has patient been on IV antibiotics over the past 48 hours?: Yes Current Medications - Current Medications Current Medications: Active Medications Acetaminophen (Tylenol) 650 mg PO Q4HR PRN PRN Reason: Pain 1 to 4 Last Admin: 05/05/19 11:44 Dose: 650 mg Hydrocodone Bitart/Acetaminophen (Patterson 5/325) 1 tab PO Q6H PRN PRN Reason: PAIN Albuterol/Ipratropium (Duoneb) 3 ml INH RTQID PRN PRN Reason: Shortness of Air/Wheezing Aspirin (Ecotrin) 81 mg PO DAILY REPLACED BY [facility] Azithromycin (Zithromax) 250 mg PO Q24H REPLACED BY [facility] Stop: 05/08/19 21:01 Calcium Carbonate/Glycine (Tums) 500 mg PO BID PRN PRN Reason: Heartburn Last Admin: 05/05/19 11:31 Dose: 500 mg Clopidogrel Bisulfate (Plavix) 75 mg PO DAILY REPLACED BY [facility] Ceftriaxone Sodium 1 gm/ (Sodium Chloride) 100 mls @ 200 mls/hr IV Q24H REPLACED BY [facility] Sodium Chloride (Normal Saline 0.9%) 500 mls @ 0 mls/hr IV Q24H PRN PRN Reason: TKO RATE Insulin Aspart (Novolog) 1 - 5 unit SUBQ 0800,1200,1700,2100 REPLACED BY [facility]; Protocol Last Admin: 05/05/19 11:45 Dose: Not Given Lactobacillus Rhamnosus (Culturelle) 1 cap PO DAILY REPLACED BY [facility] Lisinopril (Zestril) 10 mg PO BID REPLACED BY [facility] Methylprednisolone (Solu-Medrol (40mg Vial)) 30 mg IVP TID REPLACED BY [facility] Last Admin: 05/05/19 11:31 Dose: 30 mg Metoprolol Succinate (Toprol Xl) 25 mg PO BID REPLACED BY [facility] Last Admin: 05/05/19 08:37 Dose: Not Given Multivitamins/Minerals (Theragran M) 1 tab PO DAILYWM REPLACED BY [facility] Pantoprazole Sodium (Protonix) 40 mg IVP QDAC REPLACED BY [facility] Last Admin: 05/05/19 05:59 Dose: 40 mg Polyethylene Glycol (Miralax) 17 gm PO DAILY REPLACED BY [facility] Last Admin: 05/05/19 08:37 Dose: 17 gm Sodium Chloride (Normal Saline Flush 0.9%) 10 ml IVP PRN PRN PRN Reason: NEEDED PER PROVIDER ORDERS Last Admin: 05/05/19 06:00 Dose: 10 ml Sodium Chloride (Normal Saline Flush 0.9%) 10 ml IVP 0100,0900,1700 REPLACED BY [facility] Last Admin: 05/05/19 06:00 Dose: 10 ml Lisinopril 10 mg PO BID 03/25/14 Simvastatin 40 mg PO QPM 03/25/14 Aspirin [Aspir 81] 81 g PO DAILY 08/01/14 Metformin HCl 500 mg PO BID 08/01/14 Cholecalciferol (Vitamin D3) [Vitamin D3] 1 tab PO DAILY 01/27/16 Calcium Carbonate/Vitamin D3 [Calcium 600 + Vit D 400 Tablet] 3 each PO DAILY 04/20/19 Clopidogrel Bisulfate [Clopidogrel] 75 mg PO DAILY 05/05/19 Magic Mouthwash 5 - 15 ml PO Q4H PRN 05/05/19 Metoprolol Tartrate 25 mg PO BID 05/05/19
[2019-05-05] MEDS ORDERED: HYDROcod/ACETAM 5/325 MG TABLET PO PRN (13:43)
[2019-05-05] MEDS ORDERED: IPRATROPIUM/ALBUTEROL 3 ML NEB INH PRN (14:26)
[2019-05-05] MEDS: LACTOBACILLUS RHAMNOSUS GG CAPSULE PO SCH (16:34)
[2019-05-05] MEDS: MULTIVITAMIN W/MINERALS TABLET PO SCH (16:34)
[2019-05-05] MEDS ORDERED: INSULIN ASPART 300 UNIT/3 ML PEN SUBQ SCH ×2 (17:00)
[2019-05-05] MEDS ORDERED: BENZOCAINE/MENTHOL LOZENGE MM PRN (18:24)
[2019-05-05] MEDS: SENNA 8.6 MG TABLET PO SCH (18:50)
[2019-05-05] MEDS ORDERED: cefTRIAXone 1 GM in SODIUM CHLORIDE 0.9% MINIBAG 100 ML IV SCH (21:00)
[2019-05-05] MEDS ORDERED: AZITHROMYCIN 250 MG TABLET PO SCH (21:00)
[2019-05-05] MEDS: LISINOPRIL 5 MG TABLET PO SCH (21:25)
[2019-05-06] MEDS: PANTOPRAZOLE 40 MG VIAL IVP SCH (05:47)
[2019-05-06] MEDS: methylPREDNISolone SUCCINATE 40 MG/ML VIAL IVP SCH (05:47)
[2019-05-06] MEDS: SODIUM CHLORIDE FLUSH 0.9% 10 ML SYRINGE IVP PRN (05:48)
[2019-05-06] MEDS: SODIUM CHLORIDE FLUSH 0.9% 10 ML SYRINGE IVP SCH (05:48)
[2019-05-06 05:58] LABS: BASOPHILS % (AUTO) 0.1 %; HGB - HEMOGLOBIN 9.4 g/dL (12.0-16.0); LYMPHOCYTES # (AUTO) 0.3 10^3/uL (1.5-3.5); LYMPHOCYTES % (AUTO) 3.9 %; MEAN CORPUSCULAR HEMOGLOBIN 31.3 pg (27.0-31.0); MEAN CORPUSCULAR HGB CONC 34.1 g/dL (32.0-36.0); MEAN PLATELET VOLUME 10.1 fL (7.9-10.8); MONOCYTES # (AUTO) 0.3 10^3/uL (0.0-1.0); MONOCYTES % (AUTO) 4.6 %; NEUTROPHILS % (AUTO) 90.4 %; PLT - PLATELET COUNT 198 10^3/uL (130-450); RED CELL DISTRIBUTION WIDTH 17.4 % (12.0-15.0); WHITE BLOOD COUNT 6.7 x10^3/uL (4.8-10.8)
[2019-05-06 06:07] LABS: ALBUMIN 2.6 g/dL (3.2-5.5); ALBUMIN/GLOBULIN RATIO 0.7 (1.0-2.2); BILIRUBIN,TOTAL 0.6 mg/dL (0.2-1.0); CALCIUM 9.5 mg/dL (8.5-10.3); CREATININE 0.7 mg/dL (0.4-1.0); MAGNESIUM 1.8 mg/dL (1.7-2.8); TOTAL PROTEIN 6.1 g/dL (6.7-8.2)
[2019-05-06 06:24] LABS: HB2 TOTAL 9.9 g/dL; HEMOGLOBIN A1C 0.49 g/dL; HEMOGLOBIN A1C % 6.7 % (4.6-6.2)
[2019-05-06] MEDS: LACTOBACILLUS RHAMNOSUS GG CAPSULE PO SCH (08:50)
[2019-05-06] MEDS: LISINOPRIL 5 MG TABLET PO SCH (08:50)
[2019-05-06] MEDS: MULTIVITAMIN W/MINERALS TABLET PO SCH (08:50)
[2019-05-06] MEDS: METOPROLOL SUCCINATE 25 MG TABLET PO SCH (08:50)
[2019-05-06] MEDS: INSULIN ASPART 300 UNIT/3 ML PEN SUBQ SCH ×2 (08:51→13:25)
[2019-05-06] MEDS: SENNA 8.6 MG TABLET PO SCH (08:51)
[2019-05-06] MEDS: POLYETHYLENE GLYCOL 3350 17 GM PACKET PO SCH (08:51)
[2019-05-06] MEDS ORDERED: DOCUSATE SODIUM 250 MG CAPSULE PO SCH (09:00)
[2019-05-06] MEDS ORDERED: SENNA 8.6 MG TABLET PO SCH (09:00)
[2019-05-06] MEDS ORDERED: CLOPIDOGREL 75 MG TABLET PO SCH (09:00)
[2019-05-06] MEDS ORDERED: ASPIRIN EC 81 MG TABLET PO SCH (09:00)
[2019-05-06 09:47] LABS: ABSOLUTE RETICS # AUTO 0.1 10^6/uL (0.020-0.110)
[2019-05-06 10:05] LABS: % IRON SATURATION 32 % (20-50); IRON 66 ug/dL (28-170); TOTAL IRON BINDING CAPACITY 209 ug/dL (250-450); TRANSFERRIN 149 mg/dL (192-382)
[2019-05-06 13:21] VITALS: BP 138/94
--- NOTE | 2019-05-06 14:19 | Discharge Plan ---
Discharge Plan Problem Reviewed?: Yes Disposition: Home, Self Care Condition: Poor Prescriptions: Azithromycin [Zithromax] 250 mg PO Q24H #5 tablet predniSONE [Deltasone] 10 mg PO [id number] #15 tab Diet: Diabetic Activity Restrictions: Activity as Tolerated Shower Restrictions: No (fall precaution) Instruction Topics: Pneumonia, Prednisone tablets, Azithromycin tablets, Chronic Lung Disease Oxygen, Oxygen Home Use Health Concerns: dyspnea Plan of Treatment: your dyspnea could be combination of your underline lung cancer, recently radiation and chemotherapy caused inflammation plus infection, and hx of cigarette smoker. you are prescribed Azithyromycin, short time steroid, and home oxygen. advise you followup RT instruction safely to use home O2, followup your oncologist. Care Goals: stabilization and improvement of your medical conditions Additional Instructions or Follow Up instructions: You may followup your PCP in one week, followup your oncologist and phosphoric acid supervisor as out-pt. Should your symptoms return or worsen, you may present ER or call 911 for help. Follow-Up Care: [facility] - Pulmonary No Smoking: If you smoke, Please STOP! Call for help. Follow-up with: Magdi Troy DO [Primary Care Provider] -
--- NOTE | 2019-05-06 14:36 | DISCHARGE SUMMARY ---
Discharge Summary Discharge Date: 05/06/19 Discharging Provider: BRANTLEY Primary Care Provider: Dr. Troy Condition at Discharge: Poor Discharge Disposition: 01 Home, Self Care Discharge Facility Name: home - DIAGNOSES Admission Diagnoses: (1) Acute respiratory failure with hypoxia (2) Pneumonia (3) Lung cancer (4) Hypertension (5) Diabetes mellitus Discharge Diagnoses with Status of Each Condition: (1) Acute respiratory failure with hypoxia improved and stable. pt had normal blood gas study. pt is prescribed home oxygen. pt has hx of advanced lung cancer, pt has been on radiation and chemotherapy. pt has long hx of cigarette smoking, and hx COPD, plus recently radiation treatment and infection. (2) atypical Pneumonia stable. pt is prescribed antibiotics Azithyromycin for her atypical pneumonia. pt has normal WBC, no fever or chill. (3) COPD stable. left side wheezing is significantly improved. pt strongly request to be d/c to home today. pt is prescribed lower dosage of Prednisone. pt has 86% sat on room air but her sats drop to 70% on ambulation on room air. with 1 lpm on ambulation, she has 82% sat. with 2 lpm, she has 87 sats. with 3 lpm, she has 89% sat, pt walked 100 ft. I am order O2 3lpm carlos eduardo nasal cannula continuously (4) shortness of breath improved. pt is prescribed home oxygen. (5) Lung cancer advise pt followup her oncologist (6) Hypertension stable (7) Diabetes mellitus stable. slight elevated glucose level because of steroid usage - HPI History of Present Illness: refer from Dr. Naranjo's HPI on 05/04/19 Patient seen on 05/04/19 around 22:00pm Patient is an 83 y/o female who presented to the ED with dyspnea. She says she just couldn't catch her breath. Her symptoms started on 3 days ago. She presented to the ED 3 days ago and was prescribed doxycycline for pneumonia after work up. She was only able to take 3 pills because she became very nauseous and vomited on Saturday. She also complains of an intermittent dry cough especially when she takes deep breaths. She denied chest pain, abd pain, fever or chills. She sounds very rhonchous in the lung bases bilaterally. CTAngio of the chest showed scattered endobronchial opacification within the lower lobes, patchy peribronchovascular groundglass opacity within the upper lobes for which the differential included diffuse alveolar damage, pulmonary hemorrhage or viral infection. In the ED her O2Sat dropped to 83% with ambulation. At bedside she appears to be resting comfortably. She is very frail appearing. She lost her hair from the therapy she received. 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 She completed radiation therapy on 03/17/19 and is to follow up with Rad Onc on 05/19/19. She has been having some difficulty swallowing since then. She was given a swish and swallow medication which she has been using. She used it on Saturday, then attempted to drink water afterwards but aspirated. She had been told it would take about 2-3 weeks for her symptoms or difficulty with swallowing to improve. She was to follow up with her Oncologist (Dr Lima) at the [facility] today 05/04/19 about beginning Immunotherapy but had to cancel because she came to the ED. - HOSPITAL COURSE Hospital Course: pt was admitted for shortness of breath. pt report she has been on chronic shortness of breath for quite long time. pt was found atypical pneumonia and COPD. pt has no more issue on her dysphagia, tolerate the diet. pt was treated with antibiotics and lower dosage of steroid. after treatment, pt state her SOB is significant improved. pt is prescribed antibiotics, lower dosage of Predni sone, and home Oxygen. The detail hospital course is as the below. 1) Acute respiratory failure with hypoxia improved and stable. pt had normal blood gas study. pt is prescribed home oxygen. pt has hx of advanced lung cancer, pt has been on radiation and chemotherapy. pt has long hx of cigarette smoking, and hx COPD, plus recently radiation treatment and infection. (2) atypical Pneumonia stable. pt is prescribed antibiotics Azithyromycin for her atypical pneumonia. pt has normal WBC, no fever or chill. (3) COPD stable. left side wheezing is significantly improved. pt strongly request to be d/c to home today. pt is prescribed lower dosage of Prednisone. pt has 86% sat on room air but her sats drop to 70% on ambulation on room air. with 1 lpm on ambulation, she has 82% sat. with 2 lpm, she has 87 sats. with 3 lpm, she has 89% sat, pt walked 100 ft. I am order O2 3lpm carlos eduardo nasal cannula continuously advised pt followup RT instruction safely to use home oxygen. (4) shortness of breath improved. pt is prescribed home oxygen. (5) Lung cancer advise pt followup her oncologist (6) Hypertension stable (7) Diabetes mellitus stable. slight elevated glucose level because of steroid usage - ALLERGIES Allergies/Adverse Reactions: Allergies Allergy/AdvReac Type Severity Reaction Status Date / Time No Known Drug Allergies Allergy Verified 05/01/19 14:26 - MEDICATIONS Home Medications: Ambulatory Orders Medication Instructions Recorded Confirmed Lisinopril 10 mg PO BID 03/25/14 05/05/19 Simvastatin 40 mg PO QPM 03/25/14 05/05/19 Aspirin [Aspir 81] 81 g PO DAILY 08/01/14 05/05/19 Metformin HCl 500 mg PO BID 08/01/14 05/05/19 Hydrocodone/Acetaminophen [[place] 1 each PO Q6H PRN #20 tablet 12/18/15 05/05/19 5-325 Tablet] Cholecalciferol (Vitamin D3) 1 tab PO DAILY 01/27/16 05/05/19 [Vitamin D3] Fluticasone [Flonase] 1 sprays CRISSY BID #1 bottle 02/11/18 05/05/19 Calcium Carbonate/Vitamin D3 3 each PO DAILY 04/20/19 05/05/19 [Calcium 600-Vit D3 400 Tablet] Clopidogrel Bisulfate [Clopidogrel] 75 mg PO DAILY 05/05/19 05/05/19 Magic Mouthwash 5 - 15 ml PO Q4H PRN 05/05/19 05/05/19 Metoprolol Tartrate 25 mg PO BID 05/05/19 05/05/19 Azithromycin [Zithromax] 250 mg PO Q24H #5 tablet 05/06/19 predniSONE [Deltasone] 10 mg PO [id number] #15 tab 05/06/19 - PHYSICAL EXAM AT DISCHARGE General Appearance: positive: No acute distress, Alert. negative: Lethargic Eyes Bilateral: positive: Normal inspection, PERRL, No lid inflammation, Conjunctivae nml ENT: positive: ENT inspection nml, Pharynx nml, No signs of dehydration. negative: Purulent nasal drainage Neck: positive: Nml inspection, Thyroid nml, No JVD, Trachea midline. negative: Thyromegaly, Lymphadenopathy (R), Lymphadenopathy (L), Stiff neck, Tracheal deviation Respiratory: positive: Chest non-tender, No respiratory distress. negative: Wheezes, Rales Cardiovascular: positive: Regular rate & rhythm, No murmur, No gallop. negative: Irregularly irregular, Extrasystoles, Tachycardia, Bradycardia, JVD present, Systolic murmur, Diastolic murmur Peripheral Pulses: positive: 2+ Abdomen: positive: Non-tender, No organomegaly, Nml bowel sounds, No distention. negative: Tenderness, Guarding, Rebound Back: positive: Nml inspection Skin: positive: Color nml, No rash, Warm, Dry. negative: Cyanosis, Diaphoresis, Pallor Extremities: positive: Non-tender, Nml appearance. negative: Calf tenderness, Brooke's sign/cords Neurologic/Psychiatric: positive: Oriented x3, Motor nml, Sensation nml, Mood/affect nml. negative: Weakness, Sensory loss, Facial droop, Slurred/abnml speech, Depressed mood/affect - LABS Result Diagrams: 05/06/19 05:29 05/06/19 05:29 - SEPSIS Current Stage of Sepsis: Ruled out - FOLLOW UP Follow Up: your dyspnea could be combination of your underline lung cancer, recently radiation and chemotherapy caused inflammation plus infection, and hx of cigarette smoker. you are prescribed Azithyromycin, short time steroid, and home oxygen. advise you followup RT instruction safely to use home O2, followup your oncologist. You may followup your PCP in one week, followup your oncologist and software computer specialist as out-pt. Should your symptoms return or worsen, you may present ER or call 911 for help. - TIME SPENT Time Spent in Discharge (Minutes): 50
[2019-05-07] MEDS ORDERED: predniSONE 20 MG TABLET PO SCH (08:00)
== END 2019-05-06 15:05 | disposition home or self-care (01) | DRG 189 ==
LOC: ED 12:13 → UNDOADMOB 20:40 → MS2 20:40 → OBSVTOIN 05-05 10:45 → INTOOBSV 05-05 10:45
PROVIDERS: ADMIT Internal Medicine; ATTEND Nurse Practitioner Gerontology
DX: J96.01 Acute respiratory failure with hypoxia (principal); J18.9 Pneumonia, unspecified organism; C34.32 Malignant neoplasm of lower lobe, left bronchus or lung; J43.9 Emphysema, unspecified; I10 Essential (primary) hypertension; E11.9 Type 2 diabetes mellitus without complications; E78.00 Pure hypercholesterolemia, unspecified; I25.10 Atherosclerotic heart disease of native coronary artery without angina pectoris; G89.29 Other chronic pain; M54.9 Dorsalgia, unspecified; Y84.2 Radiological procedure and radiotherapy as the cause of abnormal reaction of the patient, or of later complication, without mention of misadventure at the time of the procedure; K20.8 Other esophagitis; R13.10 Dysphagia, unspecified; H35.30 Unspecified macular degeneration; Z79.84 Long term (current) use of oral hypoglycemic drugs; Z79.82 Long term (current) use of aspirin; I25.2 Old myocardial infarction; Z95.5 Presence of coronary angioplasty implant and graft; Z87.891 Personal history of nicotine dependence; Z92.21 Personal history of antineoplastic chemotherapy; Z99.81 Dependence on supplemental oxygen
CPT/HCPCS: 36415; 71275; 80048; 80053; 82607; 82728; 82803; 83036; 83540; 83605; 83615; 83690; 83735; 83880; 84466; 84484; 85025; 85045; 85610; 92610; 93005; 93306; 94761; 96365; 96366; 96367; 96368; 96375; 97161; 99284; 99285; A9270; G0378; Q9967

== ENCOUNTER 2019-05-10 07:56 | Outpatient (CLI) | payer MEDICARE, OTHER | END 2019-05-10 07:57 | disposition critical access hospital (66) | LOC: EMS 07:56 | PROVIDERS: ATTEND Surgery | DX: M54.9 Dorsalgia, unspecified (principal); W18.39XA Other fall on same level, initial encounter; Y92.009 Unspecified place in unspecified non-institutional (private) residence as the place of occurrence of the external cause ==

== ENCOUNTER 2019-05-10 08:23 | Emergency (ER) | payer MEDICARE, OTHER ==
[2019-05-10] MEDS ORDERED: KETOROLAC 30 MG/ML VIAL IVP STA (08:38)
--- NOTE | 2019-05-10 08:45 | ED Physician Documentation ---
PD HPI BACK INJURY - Stated complaint Stated Complaint: GLF - History obtained from History obtained from: Patient, EMS - History of Present Illness Location: Lower Type of injury: Fall Where injury occurred: Home Timing - onset: Today Timing - duration: Minutes Timing - details: Abrupt onset, Still present Quality: Pain, Spasm, Sharp Improved by: Rest Worsened by: Moving, Palpating Associated symptoms: No: Fever, Weakness, Numbness, Incontinent of urine, Unable to urinate, Hematuria, Incontinent of stool Contributing factors: Other (luing cancer). No: Prior back surgery Similar symptoms before: Has not had sx before Recently seen: Not recently seen - Additional information Additional information: 83-year-old female who is being treated for squamous cell carcinoma of the lung has completed chemo and radiation therapy this morning she was bent over and fell backwards directly onto her back she is complaining of severe mid back pain. She has pain with any movement. She is recently been hospitalized for atypical pneumonia and improved with that she is on oxygen at home. Review of Systems Constitutional: denies: Fever Eyes: denies: Decreased vision Ears: denies: Ear pain Nose: denies: Congestion Throat: denies: Sore throat Cardiac: denies: Chest pain / pressure GI: denies: Nausea, Vomiting Musculoskeletal: reports: Back pain. 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: Hysterectomy Cardiovascular: Coronary stent HEENT: Cataracts - Present Medications Home Medications: Ambulatory Orders Medication Instructions Recorded Confirmed Lisinopril 10 mg PO BID 03/25/14 05/05/19 Simvastatin 40 mg PO QPM 03/25/14 05/05/19 Aspirin [Aspir 81] 81 g PO DAILY 08/01/14 05/05/19 Metformin HCl 500 mg PO BID 08/01/14 05/05/19 Cholecalciferol (Vitamin D3) 1 tab PO DAILY 01/27/16 05/05/19 [Vitamin D3] Calcium Carbonate/Vitamin D3 3 each PO DAILY 04/20/19 05/05/19 [Calcium 600-Vit D3 400 Tablet] Metoprolol Tartrate 25 mg PO BID 05/05/19 05/05/19 Hydrocodone/Acetaminophen 1 - 2 each PO Q6H PRN #30 tablet 05/10/19 [Hydrocodon-Acetaminophen 5-325] - Allergies Allergies/Adverse Reactions: Allergies Allergy/AdvReac Type Severity Reaction Status Date / Time No Known Drug Allergies Allergy Verified 05/10/19 08:31 - Social History Does the pt smoke?: No Smoking Status: Never smoker Does the pt drink ETOH?: No Does the pt have substance abuse?: No - Immunizations Immunizations are current?: Yes - POLST Patient has POLST: No POLST Status: Full Code PD ED PE NORMAL - Vitals Vital signs reviewed: Yes (hypertensive) - General General: Alert and oriented X 3, No acute distress, Well developed/nourished, Other (thin 83 y/o female without hair is on a back board with C-collar in place. 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, No motor deficit, No sensory deficit, Normal speech Eye Opening: Spontaneous Motor: Obeys Commands Verbal: Oriented GCS Score: 15 - Psych Psych: Normal mood, Normal affect Results - Vitals Vitals: Vital Signs - 24 hr 05/10/19 05/10/19 05/10/19 08:28 10:52 13:46 Temperature 36.2 C L Heart Rate 76 68 72 Respiratory 20 15 20 Rate Blood Pressure 192/89 H 167/95 H 156/83 H O2 Saturation 95 100 100 05/10/19 14:43 Temperature Heart Rate 68 Respiratory 18 Rate Blood Pressure 108/80 O2 Saturation 99 Oxygen O2 Source Nasal cannula - Rads (name of study) lumbar spine Radiology: Prelim report reviewed (Impression: 1. No definitive radiographic evidence for lumbar spine fracture. However, examination is limited by osseous demineralization supine positioning. If clinically indicated, could consider CT for further evaluation. Moderate degenerative disc disease at L4-L5, asymmetric towards the right.), EMP read indepedently, See rad report thoracic spine Radiology: Prelim report reviewed (Impression: 1. Moderate T9 compression fracture is new from recent prior CTA 2. partial visualization of multifocal groundglass opacities in both lungs, corresponding to opacity seen on previous CT.), EMP read indepedently, See rad report PD MEDICAL DECISION MAKING - ED course Complexity details: reviewed old records, reviewed results, re-evaluated patient, considered differential, d/w patient, d/w family ED course: 83-year-old female with a fall in her home has a compression fracture at T9. She is able to control the pain with pain medication here in the emergency department and she feels much improved. She is placed into a TLSO brace which also helps. She does require some help to get in and out of bed she lives alone and her family will be available part of the time. I did have pediatric social worker go in and talk to the patient and her family about additional resources available. She is not willing to go into a [facility] right now nor does it appear she would need this. She may in the next several days require more help and I have asked the patient to return to the emergency department should she fail at home. Departure - Departure Disposition: 01 Home, Self Care Clinical Impression: Thoracic vertebral fracture Qualifiers: Encounter type: initial encounter Thoracic vertebra fracture level: T9 Fracture type: closed Fracture morphology: wedge compression Qualified Code(s): S22.070A - Wedge compression fracture of T9-T10 vertebra, initial encounter for closed fracture Condition: Stable Instructions: ED Fx Comp Vertebral Follow-Up: Magdi Troy DO [Primary Care Provider] - Prescriptions: Hydrocodone/Acetaminophen [Hydrocodon-Acetaminophen 5-325] 1 - 2 each PO Q6H PRN #30 tablet PRN Reason: pain Discharge Date/Time: 05/10/19 15:47
[2019-05-10] MEDS ORDERED: HYDROmorphone 1 MG/ML CARPUJECT IVP STA (09:23)
[2019-05-10] MEDS ORDERED: ONDANSETRON 4 MG/2 ML VIAL IVP STA (09:23)
--- NOTE | 2019-05-10 09:40 | XRAY Report ---
Reason: fall mid back pain like a compression fx Procedure Date: 05/10/2019 Accession Number: [id number] / [id number] Procedure: XR - Lumbar Spine 2 View CPT Code: Final Report FULL RESULT: EXAM: LUMBOSACRAL SPINE RADIOGRAPHY EXAM DATE: 05/10/2019 09:12 AM. CLINICAL HISTORY: Fall, mid back pain, rule a compression fracture. COMPARISONS: Lumbar spine MRI from 03/24/2016. TECHNIQUE: 2 views. FINDINGS: Alignment: There is mild apex left curvature of the lower lumbar spine. No significant spondylolisthesis. Bones: Five [id number] lumbar vertebral bodies are present. The bones are demineralized. There is minimal inferior endplate deformity at L4. However, this is commonly seen as sequela of degeneration rather than fracture. No definite findings of acute fracture. Disks: There is moderate right-sided disk height loss at L4-L5 with endplate sclerosis. Disk heights elsewhere appear preserved although examination is performed without weightbearing. Facets: There is multilevel facet sclerosis throughout the lumbar spine, suggestive of degeneration. However, this is not well assessed by this examination. Sacroiliac Joints: Alignment appears to be within normal limits. Other: No obvious fracture of the visualized sacrum or bony pelvis. Visualized bowel gas pattern is unremarkable. IMPRESSION: 1. No definite radiographic evidence for lumbar spine fracture. However, examination is limited by osseous demineralization and supine positioning. If clinically indicated, could consider CT for further evaluation. 2. Moderate degenerative disk disease at L4-L5, asymmetric towards the right. RADIA
--- NOTE | 2019-05-10 10:43 | XRAY Report ---
Reason: mid back pain after fall Procedure Date: 05/10/2019 Accession Number: [id number] / [id number] Procedure: XR - Thoracic Spine 2 View CPT Code: Final Report FULL RESULT: EXAM: THORACIC SPINE RADIOGRAPHY EXAM DATE: 05/10/2019 10:21 AM. CLINICAL HISTORY: Mid back pain after fall. COMPARISON: CTA chest from 05/04/2019. TECHNIQUE: 2 views. FINDINGS: Alignment: There is mild apex right curvature of the upper lumbar spine. No significant spondylolisthesis. Bones: There is moderate compression fracture at T9, which is new since previous CT. There is approximately 40-50% vertebral body height loss. No other findings suspicious for acute fracture. Disks: Mild degenerative disk disease is present throughout the thoracic spine. Soft Tissues: There are areas of patchy groundglass opacity in both lungs, greatest in the left midlung. These correspond to hazy groundglass opacity seen on previous CTA. Coronary artery stenting and atherosclerotic calcification of the aorta demonstrated. A left-sided port is present. IMPRESSION: 1. Moderate T9 compression fracture is new from recent prior CTA. 2. Partial visualization of multifocal groundglass opacities in both lungs, corresponding to opacities seen on previous CT. RADIA
[2019-05-10 14:44] VITALS: BP 108/80
== END 2019-05-10 15:47 | disposition home or self-care (01) ==
LOC: EDUNIT# → ED 08:23
DX: S22.070A Wedge compression fracture of T9-T10 vertebra, initial encounter for closed fracture (principal); W18.30XA Fall on same level, unspecified, initial encounter; Y93.89 Activity, other specified; Y92.009 Unspecified place in unspecified non-institutional (private) residence as the place of occurrence of the external cause; I10 Essential (primary) hypertension; E11.9 Type 2 diabetes mellitus without complications; Z79.84 Long term (current) use of oral hypoglycemic drugs
CPT/HCPCS: 72070; 72100; 96374; 96375; 99284; J1170

== ENCOUNTER 2019-05-11 15:42 | Inpatient (IN) | payer MEDICARE, OTHER ==
--- NOTE | 2019-05-11 15:49 | ED Physician Documentation ---
History of Present Illness - Stated complaint Stated Complaint: BRACE FOR FRACTURE - Chief complaint Chief Complaint: Back Pain - Additonal information Additional information: This is an 83-year-old female history of metastatic squamous cell lung cancer Status post radiation and chemotherapy, with a recent T9 compression fracture after a fall backwards, who presents with back pain. Patient was placed in a TLSO brace for her fracture yesterday and she states that her pain was okay yesterday after she recieved IV pain medications in the hospital, but upon arriving home she has had increasing pain and has been taking the hydrocodone th at was prescribed to her but it has not been effective in controlling her pain. The pain is 10/10, in the mid-back, and worse with movement. The brace also is uncomfortable on her. Her son and granddaughter are out of the house during the day, and she is having difficulty transferring and is unable to put the brace on herself prior to transfers out of her recliner. No weakness, numbness. 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: Hysterectomy Cardiovascular: Coronary stent HEENT: Cataracts - Present Medications Home Medications: Ambulatory Orders Medication Instructions Recorded Confirmed Lisinopril 10 mg PO BID 03/25/14 05/12/19 Simvastatin 40 mg PO QPM 03/25/14 05/12/19 Aspirin [Aspir 81] 81 mg PO DAILY 08/01/14 05/12/19 Metformin HCl 500 mg PO BID 08/01/14 05/12/19 Cholecalciferol (Vitamin D3) 1,000 unit PO DAILY 01/27/16 05/12/19 [Vitamin D3] Calcium Carbonate/Vitamin D3 2 tab PO DAILY 04/20/19 05/12/19 [Calcium 600-Vit D3 400 Tablet] Metoprolol Tartrate 25 mg PO BID 05/05/19 05/12/19 Hydrocodone/Acetaminophen 1 tab PO DAILY PRN 05/12/19 05/12/19 [Hydrocodon-Acetaminophen 5-325] [place]-3S/Dha/Epa/Fish Oil [[place]-3 1 cap PO DAILY 05/12/19 05/12/19 Fish Oil 1,200 mg Sfgl] - Allergies Allergies/Adverse Reactions: Allergies Allergy/AdvReac Type Severity Reaction Status Date / Time lidocaine Allergy Unknown Verified 05/11/19 15:47 - Social History Does the pt smoke?: No Smoking Status: Never smoker Does the pt drink ETOH?: No Does the pt have substance abuse?: No - Immunizations Immunizations are current?: Yes - POLST Patient has POLST: No POLST Status: Full Code PD ED PE NORMAL - General General: Alert and oriented X 3 - HEENT HEENT: Atraumatic - Neck Neck: No bony TTP - Cardiac Cardiac: RRR - Respiratory Respiratory: No respiratory distress - Back Back: Other (TLSO brace in place, she does have tenderness of the mid to lower thoracic spine) - Neuro Neuro: Alert and oriented X 3, lime mixer tender 2-12 intact, No motor deficit, No sensory deficit, Normal speech - Psych Psych: Normal mood, Normal affect Results - Vitals Vitals: Vital Signs - 24 hr 05/11/19 05/12/19 05/12/19 23:06 01:08 03:16 Temperature Heart Rate 72 70 74 Respiratory 16 16 Rate Blood Pressure 107/53 L 129/63 139/68 H O2 Saturation 98 96 97 05/12/19 05/12/19 05/12/19 05:00 07:44 09:29 Temperature 36.4 C L Heart Rate 79 81 91 Respiratory 18 14 18 Rate Blood Pressure 188/75 H 163/89 H 147/83 H O2 Saturation 96 95 94 05/12/19 11:01 Temperature Heart Rate 89 Respiratory 20 Rate Blood Pressure O2 Saturation 98 Oxygen O2 Source Nasal cannula - Rads (name of study) CT Thoracic spine Radiology: Other (Moderate 2 column fracture at T9 with minimal 3 mm retropulsion with no significant central canal narrowing seen) PD MEDICAL DECISION MAKING - ED course Complexity details: considered differential (Fracture, fracture displacement, pain from malignancy, osteopenia) ED course: Pt presents with pain at a known T9 compression fracture site, with no additional falls or trauma since the fracture was diagnosed yesterday. She is neurologically intact with full strength in her lower extremities and no new bowel or bladder symptoms, but her mobility is limited by pain. She was given 2 doses of PO hydromorphone and still had severe pain. Her port was accessed and IV hydromorphone given with better response. I spoke with Dr. Naranjo at 19:30 and reviewed the patients case and that she has an acute pathologic fracture from osteopenia with intractable pain after multiple doses of pain medications, she has failed outpatient hydrocodone and had poor response to PO hydromorphone here. She has poor mobility and is a fall risk especially with her narcotic medications. At home she does not adequate assistance during the day to help considering her acute pain and mobility change. Dr. Naranjo refused the admission, and asked that patient be evaluated by social work tomorrow while in the ED to further arrange placement options. Given that patient does not appear to be in good enough condition for discharge home at this time, we will watch her in the ED overnight with IV pain medications as needed and re-evaluate in the morning to determine the best disposition. Home medications were ordered. Patient and her family were updated with the plan. Update at 11 AM on 05/12 2019. Patient required multiple doses of IV pain medications overnight. She worked with PT this morning and out of her brace that she does have some improvement in her mobility, but she continues to be in significant pain, and she and her daughter do not feel that she is safe at home, because she is a significant fall risk, on narcotic medications, and lives alone. Additionally, she has continued to require multiple doses of IV medications here to control her pain. When she ambulated a short distance across her room with physical therapy she dropped down to 78% while on 2 L nasal cannula. I did obtain a CT scan to better characterize her fracture, she is a 2 column burst fracture of her T9. I paged spine surgery at [facility] to discuss the case with them regarding her bracing, given her significant kyphosis the brace is uncomfortable with her and likely not providing ideal stabilization and seems to be worsening her pain and mobility. I spoke with Dr. John Walker of orthospine who recommended upright thoracic spine films, which he subsequently reviewed and states that she does NOT have to wear her TLSO brace, even when out of bed. Patient was admitted to the hospital due to her intractable pain, as well as hypoxia despite nasal cannula oxygen. I updated her with the plan and she and her family are in agreement. Departure - Departure Disposition: 66 [facility] DC/Xfer Clinical Impression: Intractable back pain, Hypoxia Pathologic fracture Qualifiers: Pathology associated with fracture: osteoporosis Osteoporosis type: unspecified Site of pathological fracture: vertebra Encounter type: initial encounter Qualified Code(s): M80.08XA - Age-related osteoporosis with current pathological fracture, vertebra(e), initial encounter for fracture Discharge Date/Time: 05/12/19 11:45
[2019-05-11] MEDS ORDERED: HYDROmorphone 2 MG TABLET PO STA ×2 (16:40→18:00)
[2019-05-11] MEDS ORDERED: KETOROLAC 15 MG/ML VIAL IM STA (18:00)
[2019-05-11] MEDS ORDERED: HYDROmorphone 2 MG/ML VIAL IVP STA (19:53)
[2019-05-11] MEDS ORDERED: HYDROmorphone 0.5 MG/0.5 ML SYRINGE IVP SCH (20:00)
[2019-05-11] MEDS ORDERED: AZITHROMYCIN 250 MG TABLET PO STA (20:40)
[2019-05-11] MEDS: LISINOPRIL 5 MG TABLET PO SCH (20:48)
[2019-05-11] MEDS: METOPROLOL TARTRATE 50 MG TABLET PO SCH (20:48)
[2019-05-11] MEDS: metFORMIN 500 MG TABLET PO SCH (20:49)
[2019-05-12] MEDS: HYDROmorphone 1 MG/ML CARPUJECT IVP STA ×2 (04:20→07:53)
[2019-05-12] MEDS ORDERED: HYDROmorphone 2 MG/ML VIAL ONE (04:22)
[2019-05-12] MEDS ORDERED: HYDROmorphone 1 MG/ML CARPUJECT IVP STA (04:35)
[2019-05-12] MEDS ORDERED: HYDROmorphone 2 MG/ML VIAL IVP STA ×2 (07:45→09:46)
--- NOTE | 2019-05-12 08:49 | CT Report ---
Reason: Back pain, evaluate T9 fracture Procedure Date: 05/12/2019 Accession Number: [id number] / [id number] Procedure: CT - THORACIC SPINE WO CPT Code: Final Report FULL RESULT: EXAM: CT THORACIC SPINE WITHOUT CONTRAST EXAM DATE: 05/12/2019 08:11 AM. CLINICAL HISTORY: Acute pain due to trauma. COMPARISONS: CHEST ANGIO 05/04/2019 4:22 PM. TECHNIQUE: Thin-section axial images were acquired of the thoracic spine from C7 to L1 without contrast. Post-processing: Coronal and sagittal reformats. Other: None. In accordance with CT protocol optimization, one or more of the following dose reduction techniques were utilized for this exam: automated exposure control, adjustment of mA and/or KV based on patient size, or use of iterative reconstructive technique. FINDINGS: Alignment: No scoliosis or spondylolisthesis. Bones: There is a new moderate 2 column burst fracture at T9 with 3 mm retropulsion (image 38/7). No significant central canal narrowing suggested. The remainder osseous structures appear intact. Bones appear osteopenic. Disk Levels/Facets: Minor diffuse degenerative disk disease is seen throughout the upper and mid thoracic spine. No significant facet arthropathy changes are seen. Musculature: Normal. No fatty atrophy. Other: The visualized portions of the lungs are notable for moderate pulmonary fibrosis including honeycombing and bronchiectasis in the lung bases. Appearance is similar to recent CT. Mild emphysema is also noted. IMPRESSION: New moderate 2 column burst fracture at T9 with minimal 3 mm retropulsion. No significant central canal narrowing is seen. RADIA
[2019-05-12] MEDS ORDERED: ASPIRIN CHEW 81 MG TABLET PO SCH (09:00)
[2019-05-12] MEDS ORDERED: CLOPIDOGREL 75 MG TABLET PO SCH (09:00)
[2019-05-12] MEDS: metFORMIN 500 MG TABLET PO SCH ×2 (09:39→22:01)
[2019-05-12] MEDS: LISINOPRIL 5 MG TABLET PO SCH ×2 (09:39→21:50)
[2019-05-12] MEDS: METOPROLOL TARTRATE 50 MG TABLET PO SCH (09:39)
--- NOTE | 2019-05-12 13:25 | XRAY Report ---
Reason: Upright without brace please, to eval stability Procedure Date: 05/12/2019 Accession Number: [id number] / [id number] Procedure: XR - Thoracic Spine 2 View CPT Code: Final Report FULL RESULT: EXAM: THORACIC SPINE RADIOGRAPHY EXAM DATE: 05/12/2019 12:31 PM. CLINICAL HISTORY: T9 burst fracture. Upright without brace please, to eval stability. COMPARISON: THORACIC SPINE 2 VIEW 05/10/2019 10:22 AM THORACIC SPINE W/O 05/12/2019 8:04 AM CHEST 2 VIEW 05/01/2019 2:40 PM. TECHNIQUE: Upright 2 views. FINDINGS: Alignment: Minimal left convex thoracic and right convex lumbar spine curvature. Minimal generalized thoracic kyphosis without focal kyphosis at T9. Bones: Moderate anterior superior compression deformity of T9 vertebral body without change. Disks: Minimal anterior endplate osteophyte formation at the mid thoracic levels. Disk heights are maintained. Soft Tissues: Wispy opacity consistent with scarring in the lateral mid left lung and lateral right lung base, as before. Left-sided coronary artery stents, as before. Moderate aortic arch calcification. Left subclavian Port-A-Cath with its tip in the upper SVC. IMPRESSION: No change in moderate compression fracture of T9 vertebral body. RADIA
[2019-05-12] MEDS ORDERED: IBUPROFEN 400 MG TABLET PO PRN (13:28)
[2019-05-12] MEDS ORDERED: ACETAMINOPHEN 325 MG TABLET PO PRN (13:28)
[2019-05-12] MEDS ORDERED: HYDROcod/ACETAM 5/325 MG TABLET PO PRN ×2 (13:28→14:31)
[2019-05-12] MEDS ORDERED: HYDROcod/ACETAM 10 MG/325 MG TABLET PO PRN (13:28)
[2019-05-12 13:56] LABS: BASOPHILS % (AUTO) 0.3 %; EOSINOPHILS # (AUTO) 0.2 10^3/uL (0.0-0.7); EOSINOPHILS % (AUTO) 2.4 %; HGB - HEMOGLOBIN 10.2 g/dL (12.0-16.0); LYMPHOCYTES # (AUTO) 0.3 10^3/uL (1.5-3.5); LYMPHOCYTES % (AUTO) 4.5 %; MEAN CORPUSCULAR HEMOGLOBIN 30.5 pg (27.0-31.0); MEAN CORPUSCULAR VOLUME 95.5 fL (81.0-99.0); MEAN PLATELET VOLUME 9.9 fL (7.9-10.8); MONOCYTES # (AUTO) 0.7 10^3/uL (0.0-1.0); MONOCYTES % (AUTO) 9.9 %; NEUTROPHILS % (AUTO) 81.1 %; PLT - PLATELET COUNT 182 10^3/uL (130-450); RED BLOOD COUNT 3.34 10^6/uL (4.20-5.40); RED CELL DISTRIBUTION WIDTH 19.3 % (12.0-15.0); WHITE BLOOD COUNT 7.4 x10^3/uL (4.8-10.8)
[2019-05-12 14:08] LABS: ALBUMIN/GLOBULIN RATIO 0.9 (1.0-2.2); BILIRUBIN,TOTAL 1.1 mg/dL (0.2-1.0); CALCIUM 8.8 mg/dL (8.5-10.3); CREATININE 0.7 mg/dL (0.4-1.0); TOTAL PROTEIN 6.5 g/dL (6.7-8.2)
--- NOTE | 2019-05-12 14:14 | XRAY Report ---
Reason: Hypoxia, Hx of COPD and recent pneumonia Procedure Date: 05/12/2019 Accession Number: [id number] / [id number] Procedure: XR - Chest 1 View X-Ray CPT Code: 86433 Final Report FULL RESULT: EXAM: CHEST RADIOGRAPHY EXAM DATE: 05/12/2019 01:23 PM. CLINICAL HISTORY: Hypoxia, Hx of COPD and recent pneumonia. COMPARISON: THORACIC SPINE 2 VIEW 05/12/2019 12:08 PM THORACIC SPINE 2 VIEW 05/10/2019 10:22 AM CHEST ANGIO 05/04/2019 4:22 PM. TECHNIQUE: Upright AP view. FINDINGS: Lungs/Pleura: Mild reticular opacity in the mid left lung, as before. Minimal reticular opacity of the lateral right lung base, as before. No new airspace opacities. No pneumothorax or gross pleural fluid. Mediastinum: Within exam limitations, the cardiomediastinal contour is normal. Left-sided coronary artery stents, as before. Mild aortic arch calcification. Left subclavian Port-A-Cath with its tip in the upper SVC. Other: None. IMPRESSION: 1. Mild reticular opacity throughout the left perihilar region as before consistent with an area of pneumonitis. 2. Minimal reticular scarring at the lateral right costophrenic sulcus, as before. 3. No new airspace opacities. RADIA
[2019-05-12] MEDS ORDERED: IPRATROPIUM/ALBUTEROL 3 ML NEB INH PRN (14:21)
--- NOTE | 2019-05-12 15:27 | HISTORY & PHYSICAL EXAMINATION ---
DATE OF SERVICE: 05/12/2019 Physician: Allie Avalos MD HISTORY OF PRESENT ILLNESS: This is an 83-year-old, white female with a history of CAD, lung cancer with metastasis, who has recently undergone radiation and chemotherapy. She had an admission here approximately a week ago for shortness of breath, was found to be hypoxic, was treated for an atypical pneumonia and discharged with new Zithromax and a Prednisone taper and new order for home oxygen. She got home and, the following day, she fell and suffered a fracture of her vertebral spine and came to the emergency room for management, was put in a brace, was discharged with oral pain medications, using p.o. hydrocodone. She came back again, stating that the brace was causing pain because of its pushing on different areas as she is applying it and also that the oral narcotics are not controlling her pain. She was given po Dilaudid, with minimal relief , then IV Dilaudid in the emergency room, and had pain control and is currently somnolent. In the ER, she was also noted to have hypoxia with desaturations to 78% with ambulation, despite using her supplemental oxygen per nasal cannula. PAST MEDICAL HISTORY: Metastatic lung cancer, COPD, smoker, CAD, hypertension. ALLERGIES: LIDOCAINE. MEDICATIONS 1. Aspirin 81 mg daily. 2. Calcium carbonate daily. 3. Vitamin D3 daily. 4. Tylenol with codeine p.r.n. 5. Lisinopril 40 mg daily. 6. Metformin 500 mg b.i.d. 7. Metoprolol tartrate 25 mg b.i.d. 8. [place]-3 fish oil daily. 9. Simvastatin 40 mg every night. 10. Oxygen is ordered to use continuously as well. REVIEW OF SYSTEMS: A comprehensive review of systems was performed from chart review and the pertinent positives are listed, the rest are negative. FAMILY HISTORY: No inherited diseases. SOCIAL HISTORY: The patient was a smoker who quit smoking 10 years ago. There is no history of drug abuse. She does drink 1-2 alcoholic drinks per day. PHYSICAL EXAMINATION GENERAL: Thin, elderly, white female. She is in no distress, currently sleeping in the right lateral decubitus position. VITAL SIGNS: Blood pressure 160/90, heart rate is 80-90 in sinus rhythm, she is afebrile, respiratory rate 20, O2 saturation is 95% on 2 liters nasal cannula at rest. HEENT: Reveals her to have alopecia, moist oral mucosa and she is wearing O2 via nasal cannula. NECK: Positive JVD in a supine position. CHEST: No wheezing. She has increased expiratory phase but no rales or rhonchi are heard. HEART: Very distant heart sounds. ABDOMEN: Soft, nontender. EXTREMITIES: No clubbing, cyanosis or edema. NEUROLOGIC: Currently sedated, but prior to that was functional and moving all extremities and it was a nonfocal exam. LABORATORY DATA: No labs were drawn in the ER on this admission. IMAGING: She had a thoracic spine x-ray and CT, which show diffuse degenerative disease of the spine, moderate pulmonary fibrosis including honeycombing and bronchiectasis, similar to the last CT scan, along with emphysema and new moderate 2 column burst fracture at T9 with 3 mm retropulsion and no significant central canal narrowing. IMPRESSION/DIAGNOSES 1. Worsening of preexisting hypoxemia. 2. Chronic obstructive pulmonary disease, not in exacerbation. 3. Acute vertebral spine fracture, due to osteoporosis vs pathologic fracture. 4. Failed oral pain medications. 5. Fall at home 6. Lung cancer with metastasis. 7. Hx of CAD. 8. Hx of elevated glucose or DM, probably from steroid use. PLAN: Admit the patient to a MedSurg bed for management of her continued hypoxemia with supplemental oxygen and increase her settings with activity. Begin physical therapy to assess not only her oxygen needs, but also pain control, following this new fracture of the vertebral body. The brace has been discontinued by the emergency room doctor who will speak to the neurosurgeon waiting to get confirmation that the brace can remain off. Continue with IV pain medications and transition to a combination of oral pain medications that control her pain. Continue with her other prehospital medications for blood pressure control and CAD. Obtain a CMP, CBC and obtain a chest Xray. Continue a cc diet, check fingerstick glucoses. Begin Alendronate and continue management of osteoporosis with calcium and vitamin D. Obtain orthostatic VS, to evaluate the fall at home. CODE STATUS: FULL CODE, I confirmed her wishes. DEEP VENOUS THROMBOSIS PROPHYLAXIS: SCDs. ATTESTATION: The patient is expected to be discharged or transferred to another facility within 96 hours: Yes. cc: Magdi Troy DO TD: 05/12/2019 14:18 [email or web address]
[2019-05-12] MEDS: IPRATROPIUM/ALBUTEROL 3 ML NEB INH SCH ×2 (16:56→22:29)
[2019-05-12] MEDS: SACCHAROMYCES BOULARDII 250 MG CAPSULE PO SCH (17:43)
[2019-05-12] MEDS: levoFLOXacin 250 MG TABLET PO SCH (17:44)
[2019-05-12] MEDS ORDERED: HYDROmorphone 2 MG TABLET PO PRN (18:44)
[2019-05-12] MEDS: FAMOTIDINE 20 MG TABLET PO SCH (20:41)
[2019-05-12] MEDS: HYDROmorphone 0.5 MG/0.5 ML SYRINGE IVP PRN (21:41)
[2019-05-12] MEDS: SODIUM CHLORIDE FLUSH 0.9% 10 ML SYRINGE IVP PRN (21:42)
[2019-05-12] MEDS: ATORVASTATIN 10 MG TABLET PO SCH (21:50)
[2019-05-12] MEDS: MONTELUKAST 10 MG TABLET PO SCH (21:52)
[2019-05-12] MEDS: METOPROLOL TARTRATE 25 MG TABLET PO SCH (21:53)
[2019-05-12] MEDS: SODIUM CHLORIDE FLUSH 0.9% 10 ML SYRINGE IVP SCH (21:59)
[2019-05-12] MEDS: FORMOTEROL FUMARATE NEB 20 MCG/2 ML INH SCH (22:29)
[2019-05-13] MEDS: HYDROmorphone 0.5 MG/0.5 ML SYRINGE IVP PRN ×5 (00:04→23:58)
[2019-05-13] MEDS: SODIUM CHLORIDE FLUSH 0.9% 10 ML SYRINGE IVP SCH ×4 (00:04→23:58)
[2019-05-13] MEDS: SODIUM CHLORIDE FLUSH 0.9% 10 ML SYRINGE IVP PRN ×4 (00:53→13:30)
[2019-05-13] MEDS: PROCHLORPERAZINE 10 MG/2 ML VIAL IVP PRN ×2 (00:53→08:03)
[2019-05-13] MEDS: HYDROcod/ACETAM 5/325 MG TABLET PO PRN ×2 (04:46→17:04)
[2019-05-13 05:50] LABS: BASOPHILS % (AUTO) 0.2 %; EOSINOPHILS # (AUTO) 0.2 10^3/uL (0.0-0.7); HGB - HEMOGLOBIN 9.5 g/dL (12.0-16.0); LYMPHOCYTES # (AUTO) 0.3 10^3/uL (1.5-3.5); LYMPHOCYTES % (AUTO) 5.7 %; MEAN CORPUSCULAR HEMOGLOBIN 31.7 pg (27.0-31.0); MEAN CORPUSCULAR HGB CONC 33.1 g/dL (32.0-36.0); MEAN CORPUSCULAR VOLUME 95.7 fL (81.0-99.0); MONOCYTES # (AUTO) 0.7 10^3/uL (0.0-1.0); MONOCYTES % (AUTO) 12.4 %; NEUTROPHILS # (AUTO) 4.2 10^3/uL (1.5-6.6); NEUTROPHILS % (AUTO) 77.4 %; PLT - PLATELET COUNT 156 10^3/uL (130-450); RED CELL DISTRIBUTION WIDTH 18.6 % (12.0-15.0); WHITE BLOOD COUNT 5.4 x10^3/uL (4.8-10.8)
[2019-05-13 06:08] LABS: CALCIUM 8.6 mg/dL (8.5-10.3); CREATININE 0.7 mg/dL (0.4-1.0); HB2 TOTAL 9.4 g/dL; HEMOGLOBIN A1C 0.49 g/dL; HEMOGLOBIN A1C % 6.9 % (4.6-6.2)
[2019-05-13] MEDS: FORMOTEROL FUMARATE NEB 20 MCG/2 ML INH SCH ×2 (07:15→19:40)
[2019-05-13] MEDS: IPRATROPIUM/ALBUTEROL 3 ML NEB INH SCH ×4 (07:15→19:41)
[2019-05-13] MEDS ORDERED: POTASSIUM CHLORIDE 20 MEQ TABLET PO SCH (07:26)
[2019-05-13] MEDS ORDERED: ALENDRONATE 70 MG TABLET PO SCH (07:30)
[2019-05-13] MEDS: CHOLECALCIFEROL 400 UNIT TABLET PO SCH (09:20)
[2019-05-13] MEDS: METOPROLOL TARTRATE 25 MG TABLET PO SCH ×2 (09:20→20:18)
[2019-05-13] MEDS: metFORMIN 500 MG TABLET PO SCH (09:20)
[2019-05-13] MEDS: FAMOTIDINE 20 MG TABLET PO SCH (09:21)
[2019-05-13] MEDS: ASPIRIN EC 81 MG TABLET PO SCH (09:21)
[2019-05-13] MEDS: guaiFENesin 600 MG TABLET PO SCH (09:21)
[2019-05-13] MEDS: CHOLECALCIFEROL 1,000 UNIT TABLET PO SCH (09:21)
[2019-05-13] MEDS: LISINOPRIL 5 MG TABLET PO SCH ×2 (09:21→20:16)
[2019-05-13] MEDS: SACCHAROMYCES BOULARDII 250 MG CAPSULE PO SCH ×2 (09:22→17:04)
[2019-05-13] MEDS: OMEGA-3 ACID ETHYL ESTERS 1 GM CAPSULE PO SCH ×2 (09:22→10:58)
[2019-05-13] MEDS: CALCIUM CARB (OYSTER SHELL) 500 MG TABLET PO SCH ×2 (09:22→10:58)
[2019-05-13] MEDS: POLYETHYLENE GLYCOL 3350 17 GM PACKET PO SCH (09:23)
[2019-05-13] MEDS: predniSONE 20 MG TABLET PO SCH (10:55)
[2019-05-13] MEDS: INSULIN ASPART 300 UNIT/3 ML PEN SUBQ SCH ×3 (11:00→20:32)
--- NOTE | 2019-05-13 11:44 | PROVIDER PROGRESS NOTE ---
Assessment/Plan - Problem List (1) Acute respiratory failure with hypoxia Assessment/Plan: pt presented 78% sats even with 2 liter of NC on exertion with PT, pt continue to present SOB when she is on exertion.The etiology could be pt has hx of lung cancer on stage IIB, recently finished radiation and chemotherapy, planed to have immune therapy; Xray reveals pt has pneumonitis, and recently d/c with pneu monia, and COPD. plan: pt want to continue to have immune therapy, followup her oncologist steroid to treat her pneumonitis continue antibiotics Levaquin continue treat COPD with Duoneb, pulmicor, and formoterol supplement O2 as needed continue lab and tele monitor (2)fall with spinal T9 fracture pt had fall at home, CT reveals T9 fracture as osteopenic nature. ER provider called neurosurgeon, pt can be off Brace plan: pain control, with IV pain first then gradually switch to PO meds PT/OT evaluation and treatment, will followup the recommendations, possible plan d/c SNF, since pt had a fall in the home at this time continue nurse care, skin protection to prevention of pressure ulcer (3) Pneumonitis Conclusion/Plan: Xray reveals pneumonitis, add Prednisone. pt recently finished radiation therapy for lung cancer (4) COPD pt has hx of cigarette smoker, hx of COPD, and pt present left side wheezing and significant SOB order lower dosage of steroid continue breath treatment of duoneb, pulmicor, and formoterol. supplement of O2 as needed (5) shortness of breath pt report she had significant SOB on exertion, pt took aspirin and Plavix on home, PE is likely not the cause of SOB.he etiology could be pt has hx of lung cancer on stage IIB, recently finished radiation and chemotherapy, planed to have immune therapy; Xray reveals pt has pneumonitis, and recently d/c with pneumonia, and COPD. continue treatment of breath treatment, low dosage of steroid, antibiotics, and supplement of O2 (6) Lung cancer Conclusion/Plan: Stage IIB, advise pt continue to followup Dr Lima at the [facility] (7) Hypertension Conclusion/Plan: stable, resume home meds metoprolol and lisinopril (8) Diabetes mellitus Conclusion/Plan: stable. A1C is 6.9. hold metformin. add Accu checks. slide scale, hypoglycemia protocol (9) malnutrition pt has loss of appetite, weight loss 9% in the past 14 months, BMI 16.2. 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, followup recommendations add megace - Current Meds Current Meds: Current Medications Generic Name Dose Route Start Last Admin Trade Name Freq PRN Reason Stop Dose Admin Hydrocodone Bitart/Acetaminophen 1 tab 05/12/19 17:40 05/13/19 04:46 [place] 5/325 PO 1 tab Q6H PRN Administration Pain 5 to 7 Albuterol/Ipratropium 3 ml 05/12/19 15:00 05/13/19 07:15 Duoneb INH 3 ml RTQID [facility] Administration Alendronate Sodium 70 mg 05/13/19 07:30 05/13/19 07:58 Fosamax PO 70 mg Q7D [facility] Administration Aspirin 81 mg 05/13/19 09:00 05/13/19 09:21 Ecotrin PO 81 mg DAILY [facility] Administration Atorvastatin Calcium 20 mg 05/12/19 21:00 05/12/19 21:50 Lipitor PO 20 mg QPM [facility] Administration Calcium Carbonate/Glycine 1,000 mg 05/13/19 09:00 05/13/19 10:58 Oysco-500 PO Not Given DAILY [facility] Cholecalciferol 800 unit 05/13/19 09:00 05/13/19 09:20 Vitamin D3 PO 800 unit DAILY [facility] Administration Cholecalciferol 1,000 unit 05/13/19 09:00 05/13/19 09:21 Vitamin D3 PO 1,000 unit DAILY [facility] Administration Famotidine 20 mg 05/12/19 21:00 05/13/19 09:21 Pepcid PO 20 mg DAILY [facility] Administration Formoterol Fumarate 20 mcg 05/12/19 19:00 05/13/19 07:15 Perforomist INH 20 mcg RTBID [facility] Administration Guaifenesin 600 mg 05/13/19 09:00 05/13/19 09:21 Mucinex PO 600 mg DAILY [facility] Administration Heparin Sodium (Beef Lung) 30 - 50 unit 05/12/19 21:23 05/12/19 21:42 IVP 30 unit PRN PRN Administration Port Protocol (<24 hours) Hydromorphone HCl 0.5 mg 05/12/19 20:56 05/13/19 11:22 Dilaudid Inj Syringe IVP 0.5 mg Q2H PRN Administration PAIN Ibuprofen 400 mg 05/12/19 13:28 05/12/19 17:43 Motrin PO 400 mg Q6HR PRN Administration Pain 1 to 4 Insulin Aspart 1 - 5 unit 05/13/19 12:00 05/13/19 11:00 Novolog SUBQ Not Given 0800,1200,1700,2100 [facility] Protocol Levofloxacin 500 mg 05/12/19 17:00 05/12/19 17:44 Levaquin PO 500 mg Q48H [facility] Administration Lisinopril 10 mg 05/12/19 21:00 05/13/19 09:21 Zestril PO 10 mg BID [facility] Administration Metoprolol Tartrate 25 mg 05/12/19 21:00 05/13/19 09:20 Lopressor PO 25 mg BID [facility] Administration Montelukast Sodium 10 mg 05/12/19 21:00 05/12/19 21:52 Singulair PO 10 mg QPM [facility] Administration Qgsfw-[id number] Ethyl Esters 1 gm 05/13/19 09:00 05/13/19 10:58 Lovaza PO Not Given DAILY [facility] Polyethylene Glycol 17 gm 05/13/19 09:00 05/13/19 09:23 Miralax PO Not Given DAILY [facility] Prednisone 20 mg 05/13/19 11:00 05/13/19 10:55 Deltasone PO 20 mg DAILYWM [facility] Administration Prochlorperazine Edisylate 10 mg 05/12/19 13:28 05/13/19 08:03 Compazine Inj IVP 10 mg Q6HR PRN Administration Nausea / Vomiting Saccharomyces Boulardii 250 mg 05/12/19 17:00 05/13/19 09:22 Florastor PO 250 mg BIDWM [facility] Administration Sodium Chloride 10 ml 05/12/19 13:28 05/13/19 11:22 Normal Saline Flush 0.9% IVP 10 ml PRN PRN Administration NEEDED PER PROVIDER ORDERS Sodium Chloride 10 ml 05/12/19 17:00 05/13/19 08:03 Normal Saline Flush 0.9% IVP 10 ml 0100,0900,1700 [facility] Administration - Lab Result Fish Bone Diagrams: 05/13/19 05:44 05/13/19 05:44 - Additional Planning My Orders: My Active Orders 05/13/19 10:14 Blood Glucose Checks - Eating [RC] 0800,1200,1700,2100 Initiate Hypoglycemia Protocol [RC] .protocol 05/13/19 11:00 predniSONE [Deltasone] 20 mg PO DAILYWM 05/13/19 12:00 Insulin Aspart [NovoLOG] 1 - 5 unit SUBQ 0800,1200,1700,2100 Subjective - Subjective Patient Reports: Feeling Better Objective Vital Signs: Vital Signs - 24 hr 05/12/19 05/12/19 05/12/19 11:44 12:05 15:54 Temperature 36.9 C 36.5 C Heart Rate 81 Heart Rate [ 82 78 Brachial] Respiratory 20 18 18 Rate Blood Pressure 188/89 H Blood Pressure 161/86 H 138/77 H [Right Brachial artery] O2 Saturation 98 95 94 05/12/19 05/13/19 05/13/19 21:53 00:00 07:15 Temperature 36.3 C L Heart Rate 16 L Heart Rate [ 74 Brachial] Respiratory 16 Rate Blood Pressure 134/73 H Blood Pressure 159/74 H [Right Brachial artery] O2 Saturation 100 05/13/19 07:41 Temperature 36.4 C L Heart Rate Heart Rate [ 81 Brachial] Respiratory 16 Rate Blood Pressure Blood Pressure 142/67 H [Right Brachial artery] O2 Saturation 97 Oxygen O2 Source Nasal cannula I&O (Last 24 Hrs): Intake and Output Totals x24h 05/11/19 05/12/19 05/13/19 23:59 23:59 23:59 Intake Total 225 400 Output Total 500 Balance 225 -100 General: Alert HEENT: Atraumatic Neck: Supple Lymphatic: no adenopathy Neuro: Alert, Oriented Times 3 Cardiovascular: Regular rate, Normal S1, Normal S2 Respiratory: Chest non-tender, No respiratory distress Abdomen: Normal bowel sounds, Soft - Results Results: Laboratory Results WBC 5.4 x10^3/uL (4.8-10.8) 05/13/19 05:44 RBC 3.00 10^6/uL (4.20-5.40) L 05/13/19 05:44 Hgb 9.5 g/dL (12.0-16.0) L 05/13/19 05:44 Hct 28.7 % (37.0-47.0) L 05/13/19 05:44 MCV 95.7 fL (81.0-99.0) 05/13/19 05:44 MCH 31.7 pg (27.0-31.0) H 05/13/19 05:44 MCHC 33.1 g/dL (32.0-36.0) 05/13/19 05:44 RDW 18.6 % (12.0-15.0) H 05/13/19 05:44 Plt Count 156 10^3/uL (130-450) 05/13/19 05:44 MPV 10.0 fL (7.9-10.8) 05/13/19 05:44 Neut # (Auto) 4.2 10^3/uL (1.5-6.6) 05/13/19 05:44 Lymph # (Auto) 0.3 10^3/uL (1.5-3.5) L 05/13/19 05:44 [place] # (Auto) 0.7 10^3/uL (0.0-1.0) 05/13/19 05:44 Eos # (Auto) 0.2 10^3/uL (0.0-0.7) 05/13/19 05:44 Baso # (Auto) 0.0 10^3/uL (0.0-0.1) 05/13/19 05:44 Absolute Nucleated RBC 0.00 x10^3/uL 05/13/19 05:44 Nucleated RBC % 0.0 /100WBC 05/13/19 05:44 Sodium 135 mmol/L (135-145) 05/13/19 05:44 Potassium 3.3 mmol/L (3.5-5.0) L 05/13/19 05:44 Chloride 95 mmol/L (101-111) L 05/13/19 05:44 Carbon Dioxide 28 mmol/L (21-32) 05/13/19 05:44 Anion Gap 12.0 (6-13) 05/13/19 05:44 BUN 17 mg/dL (6-20) 05/13/19 05:44 Creatinine 0.7 mg/dL (0.4-1.0) 05/13/19 05:44 Estimated GFR (MDRD) 80 (>89) L 05/13/19 05:44 Glucose 118 mg/dL (70-100) H 05/13/19 05:44 POC Whole Bld Glucose 108 mg/dL (70 - 100) H 05/13/19 10:59 Glycated Hemoglobin 6.9 % (4.6-6.2) H 05/13/19 05:44 Estim Average Glucose 151 (70-100) H 05/13/19 05:44 Calcium 8.6 mg/dL (8.5-10.3) 05/13/19 05:44 Iron 61 ug/dL (28-170) 05/13/19 05:44 TIBC 217 ug/dL (250-450) L 05/13/19 05:44 % Saturation 28 % (20-50) 05/13/19 05:44 Transferrin 155 mg/dL (192-382) L 05/13/19 05:44 Total Bilirubin 1.1 mg/dL (0.2-1.0) H 05/12/19 13:48 AST 15 IU/L (10-42) 05/12/19 13:48 ALT 13 IU/L (10-60) 05/12/19 13:48 Alkaline Phosphatase 54 IU/L (42-121) 05/12/19 13:48 Total Protein 6.5 g/dL (6.7-8.2) L 05/12/19 13:48 Albumin 3.0 g/dL (3.2-5.5) L 05/12/19 13:48 Globulin 3.5 g/dL (2.1-4.2) 05/12/19 13:48 Albumin/Globulin Ratio 0.9 (1.0-2.2) L 05/12/19 13:48 Folate 15.29 ng/mL (5.90 - >24.8) 05/13/19 05:44 - Procedures Procedures: Procedures INSERTION OF INFUSION DEV INTO SUP VENA CAVA, PERC APPROACH (03/02/19) Sepsis Event Note (H) - Evaluation Current Stage of Sepsis: Ruled out ABX Reporting Has patient been on IV antibiotics over the past 48 hours?: Yes Current Medications - Current Medications Current Medications: Active Medications Acetaminophen (Tylenol) 650 mg PO Q4HR PRN PRN Reason: Pain 1 to 4 Hydrocodone Bitart/Acetaminophen ([place] 5/325) 1 tab PO Q6H PRN PRN Reason: Pain 5 to 7 Last Admin: 05/13/19 04:46 Dose: 1 tab Albuterol/Ipratropium (Duoneb) 3 ml INH RTQID [facility] Last Admin: 05/13/19 11:40 Dose: 3 ml Albuterol/Ipratropium (Duoneb) 3 ml INH Q4HR PRN PRN Reason: Wheezing Alendronate Sodium (Fosamax) 70 mg PO Q7D [facility] Last Admin: 05/13/19 07:58 Dose: 70 mg Aspirin (Ecotrin) 81 mg PO DAILY [facility] Last Admin: 05/13/19 09:21 Dose: 81 mg Atorvastatin Calcium (Lipitor) 20 mg PO QPM [facility] Last Admin: 05/12/19 21:50 Dose: 20 mg Budesonide (Pulmicort) 0.5 mg INH RTBID [facility] Calcium Carbonate/Glycine (Oysco-500) 1,000 mg PO DAILY [facility] Last Admin: 05/13/19 10:58 Dose: Not Given Cholecalciferol (Vitamin D3) 800 unit PO DAILY [facility] Last Admin: 05/13/19 09:20 Dose: 800 unit Cholecalciferol (Vitamin D3) 1,000 unit PO DAILY [facility] Last Admin: 05/13/19 09:21 Dose: 1,000 unit Famotidine (Pepcid) 20 mg PO DAILY [facility] Last Admin: 05/13/19 09:21 Dose: 20 mg Formoterol Fumarate (Perforomist) 20 mcg INH RTBID [facility] Last Admin: 05/13/19 07:15 Dose: 20 mcg Guaifenesin (Mucinex) 600 mg PO DAILY [facility] Last Admin: 05/13/19 09:21 Dose: 600 mg Heparin Sodium (Beef Lung) () 30 - 50 unit IVP PRN PRN PRN Reason: Port Protocol (<24 hours) Last Admin: 05/12/19 21:42 Dose: 30 unit Hydromorphone HCl (Dilaudid Inj Syringe) 0.5 mg IVP Q2H PRN PRN Reason: PAIN Last Admin: 05/13/19 11:22 Dose: 0.5 mg Ibuprofen (Motrin) 400 mg PO Q6HR PRN PRN Reason: Pain 1 to 4 Last Admin: 05/12/19 17:43 Dose: 400 mg Insulin Aspart (Novolog) 1 - 5 unit SUBQ 0800,1200,1700,2100 [facility]; Protocol Last Admin: 05/13/19 11:00 Dose: Not Given Levofloxacin (Levaquin) 500 mg PO Q48H [facility] Last Admin: 05/12/19 17:44 Dose: 500 mg Lisinopril (Zestril) 10 mg PO BID [facility] Last Admin: 05/13/19 09:21 Dose: 10 mg Megestrol Acetate (Megace) 400 mg PO DAILY [facility] Metoprolol Tartrate (Lopressor) 25 mg PO BID [facility] Last Admin: 05/13/19 09:20 Dose: 25 mg Montelukast Sodium (Singulair) 10 mg PO QPM [facility] Last Admin: 05/12/19 21:52 Dose: 10 mg Pemwz-2-Lanc Ethyl Esters (Lovaza) 1 gm PO DAILY [facility] Last Admin: 05/13/19 10:58 Dose: Not Given Ondansetron HCl (Zofran Inj) 4 mg IVP Q4HR PRN PRN Reason: Nausea / Vomiting Polyethylene Glycol (Miralax) 17 gm PO DAILY [facility] Last Admin: 05/13/19 09:23 Dose: Not Given Prednisone (Deltasone) 20 mg PO DAILYWM [facility] Last Admin: 05/13/19 10:55 Dose: 20 mg Prochlorperazine Edisylate (Compazine Inj) 10 mg IVP Q6HR PRN PRN Reason: Nausea / Vomiting Last Admin: 05/13/19 08:03 Dose: 10 mg Saccharomyces Boulardii (Florastor) 250 mg PO BIDWM [facility] Last Admin: 05/13/19 09:22 Dose: 250 mg Sodium Chloride (Normal Saline Flush 0.9%) 10 ml IVP PRN PRN PRN Reason: NEEDED PER PROVIDER ORDERS Last Admin: 05/13/19 11:22 Dose: 10 ml Sodium Chloride (Normal Saline Flush 0.9%) 10 ml IVP 0100,0900,1700 [facility] Last Admin: 05/13/19 08:03 Dose: 10 ml Sodium Chloride (Normal Saline Flush 0.9%) 20 ml IVP PRN PRN PRN Reason: After Blood Draw Lisinopril 10 mg PO BID 03/25/14 Simvastatin 40 mg PO QPM 03/25/14 Aspirin [Aspir 81] 81 mg PO DAILY 08/01/14 Metformin HCl 500 mg PO BID 08/01/14 Cholecalciferol (Vitamin D3) [Vitamin D3] 1,000 unit PO DAILY 01/27/16 Calcium Carbonate/Vitamin D3 [Calcium 600-Vit D3 400 Tablet] 2 tab PO DAILY 04/20/19 Metoprolol Tartrate 25 mg PO BID 05/05/19 Hydrocodone/Acetaminophen [Hydrocodon-Acetaminophen 5-325] 1 tab PO DAILY PRN 05/12/19 [place]-3S/Dha/Epa/Fish Oil [[place]-3 Fish Oil 1,200 mg Sfgl] 1 cap PO DAILY 05/12/19
[2019-05-13] MEDS ORDERED: ONDANSETRON 4 MG/2 ML VIAL IVP PRN (12:22)
[2019-05-13] MEDS: MEGESTROL 400 MG/10 ML UDC PO SCH (13:30)
[2019-05-13] MEDS: BUDESONIDE 0.5 MG/2 ML NEB INH SCH (19:41)
[2019-05-13] MEDS: ATORVASTATIN 10 MG TABLET PO SCH (20:17)
[2019-05-13] MEDS: MONTELUKAST 10 MG TABLET PO SCH (20:18)
[2019-05-14] MEDS: SODIUM CHLORIDE FLUSH 0.9% 10 ML SYRINGE IVP PRN ×2 (05:44)
[2019-05-14 06:00] LABS: BASOPHILS % (AUTO) 0.3 %; EOSINOPHILS # (AUTO) 0.1 10^3/uL (0.0-0.7); EOSINOPHILS % (AUTO) 1.4 %; HGB - HEMOGLOBIN 8.9 g/dL (12.0-16.0); LYMPHOCYTES # (AUTO) 0.3 10^3/uL (1.5-3.5); LYMPHOCYTES % (AUTO) 4.7 %; MEAN CORPUSCULAR HEMOGLOBIN 31.4 pg (27.0-31.0); MEAN CORPUSCULAR HGB CONC 32.6 g/dL (32.0-36.0); MEAN CORPUSCULAR VOLUME 96.5 fL (81.0-99.0); MEAN PLATELET VOLUME 9.7 fL (7.9-10.8); MONOCYTES # (AUTO) 0.8 10^3/uL (0.0-1.0); MONOCYTES % (AUTO) 12.3 %; NEUTROPHILS # (AUTO) 5.1 10^3/uL (1.5-6.6); NEUTROPHILS % (AUTO) 79.4 %; PLT - PLATELET COUNT 165 10^3/uL (130-450); RED BLOOD COUNT 2.83 10^6/uL (4.20-5.40); WHITE BLOOD COUNT 6.4 x10^3/uL (4.8-10.8)
[2019-05-14 06:09] LABS: CALCIUM 8.9 mg/dL (8.5-10.3); CREATININE 0.7 mg/dL (0.4-1.0)
[2019-05-14] MEDS: BUDESONIDE 0.5 MG/2 ML NEB INH SCH (07:12)
[2019-05-14] MEDS: IPRATROPIUM/ALBUTEROL 3 ML NEB INH SCH (07:13)
[2019-05-14] MEDS: FORMOTEROL FUMARATE NEB 20 MCG/2 ML INH SCH (07:13)
[2019-05-14] MEDS: HYDROmorphone 0.5 MG/0.5 ML SYRINGE IVP PRN (08:23)
[2019-05-14] MEDS: LISINOPRIL 5 MG TABLET PO SCH ×2 (08:27→20:36)
[2019-05-14] MEDS: SACCHAROMYCES BOULARDII 250 MG CAPSULE PO SCH ×2 (08:27→17:13)
[2019-05-14] MEDS: predniSONE 20 MG TABLET PO SCH (08:27)
[2019-05-14] MEDS: FAMOTIDINE 20 MG TABLET PO SCH (08:27)
[2019-05-14] MEDS: CHOLECALCIFEROL 1,000 UNIT TABLET PO SCH ×2 (08:27→14:02)
[2019-05-14] MEDS: CHOLECALCIFEROL 400 UNIT TABLET PO SCH ×2 (08:27→14:03)
[2019-05-14] MEDS: MEGESTROL 400 MG/10 ML UDC PO SCH (08:28)
[2019-05-14] MEDS: guaiFENesin 600 MG TABLET PO SCH (08:28)
[2019-05-14] MEDS: METOPROLOL TARTRATE 25 MG TABLET PO SCH ×2 (08:28→20:37)
[2019-05-14] MEDS: OMEGA-3 ACID ETHYL ESTERS 1 GM CAPSULE PO SCH ×2 (08:28→14:03)
[2019-05-14] MEDS: ASPIRIN EC 81 MG TABLET PO SCH (08:28)
[2019-05-14] MEDS: CALCIUM CARB (OYSTER SHELL) 500 MG TABLET PO SCH ×2 (08:28→14:02)
[2019-05-14] MEDS: POLYETHYLENE GLYCOL 3350 17 GM PACKET PO SCH (08:29)
[2019-05-14] MEDS: SODIUM CHLORIDE FLUSH 0.9% 10 ML SYRINGE IVP SCH ×3 (08:31→23:44)
[2019-05-14] MEDS: INSULIN ASPART 300 UNIT/3 ML PEN SUBQ SCH ×4 (08:31→20:42)
--- NOTE | 2019-05-14 09:08 | ADVANCE CARE PLANNING NOTE ---
Advance Care Planning - Planning Encounter Date: 05/14/19 Time: 09:08 Purpose: advance care for pt Parties in Attendance: pt and me Decisional Capacity of the Patient: pt is alert and oriented plus three, she has the capacity to make her own full decisions. - Diagnosis for Encounter (4) Accidental fall Qualifiers: Encounter type: initial encounter Qualified Code(s): W19.XXXA - Unspecified fall, initial encounter (5) Thoracic vertebral fracture Qualifiers: Encounter type: initial encounter Thoracic vertebra fracture level: T9 Fracture type: closed Fracture morphology: wedge compression Qualified Code(s): S22.070A - Wedge compression fracture of T9-T10 vertebra, initial encounter for closed fracture - Encounter Subjective/Patient's Story: pt report she has been fighting for lung cancer since she was diagnosis on 11/23. pt declined to have surgery. she has been on chemotherapy and radiation therapy, and finished on 04/16/[address] Lima's note. pt want to have everything done for her, now she state she try to talk with her oncologist for immune therapy. she want to be full code, she did not think she will give up yet. Objective/Medical Story: pt's main medical issue now is shortness of breath and hypoxia special on exertion. The etiology might include, pt has hx of COPD, previous cigarette smoker, metastatic lung cancer, just finished radiation and chemotherapy, pneumonitis likely secondary from radiation therapy, plus infection. pt also present weakness, recent pt had a fall, and lead to T9 fracture with significant back pain. Goals of Care: advance care plan for pt Plan: continue full code status now, and pain control Code Status: Attempt Resuscitation Time spent on advance care plannin
--- NOTE | 2019-05-14 09:16 | PROVIDER PROGRESS NOTE ---
Assessment/Plan - Problem List (1) Acute respiratory failure with hypoxia Assessment/Plan: 05/14,improved. pt had 97% sat on 1 liter of O2 by NC on the rest. but pt still present significant SOB on exertion. I check her O2 sat was 84% when she came back from bathroom with one liter of O2 by NC. steroid to treat her pneumonitis continue antibiotics Levaquin continue treat COPD with Duoneb, pulmicor, and formoterol supplement O2 as needed continue lab and tele monitor pt presented 78% sats even with 2 liter of NC on exertion with PT, pt continue to present SOB when she is on exertion.The etiology could be pt has hx of lung cancer on stage IIB, recently finished radiation and chemotherapy, planed to have immune therapy; Xray reveals pt has pneumonitis, and recently d/c with pneumonia, and COPD. plan: pt want to continue to have immune therapy, followup her oncologist steroid to treat her pneumonitis continue antibiotics Levaquin continue treat COPD with Duoneb, pulmicor, and formoterol supplement O2 as needed continue lab and tele monitor (2)fall with spinal T9 fracture 05/14 add oxycodone PRN for her back pain, plus IV of Dilaudid PRN continue PT/OT pt had fall at home, CT reveals T9 fracture as osteopenic nature. ER provider called neurosurgeon, pt can be off Brace plan: pain control, with IV pain first then gradually switch to PO meds PT/OT evaluation and treatment, will followup the recommendations, possible plan d/c SNF, since pt had a fall in the home at this time continue nurse care, skin protection to prevention of pressure ulcer (3) Pneumonitis Conclusion/Plan: 05/14 clinically improved, O2 sats is improved, pt report she feel better. continue Prednisone with low dosage Xray reveals pneumonitis, add Prednisone. pt recently finished radiation therapy for lung cancer (4) COPD 05/14 better for SOB continue lower dosage of steroid continue breath treatment of duoneb, pulmicor, and formoterol. supplement of O2 as needed pt has hx of cigarette smoker, hx of COPD, and pt present left side wheezing and significant SOB order lower dosage of steroid continue breath treatment of duoneb, pulmicor, and formoterol. supplement of O2 as needed (5) shortness of breath pt report she had significant SOB on exertion, pt took aspirin and Plavix on home, PE is likely not the cause of SOB.he etiology could be pt has hx of lung cancer on stage IIB, recently finished radiation and chemotherapy, planed to have immune therapy; Xray reveals pt has pneumonitis, and recently d/c with pneumonia, and COPD. continue treatment of breath treatment, low dosage of steroid, antibiotics, and supplement of O2 (6) Lung cancer Conclusion/Plan: Stage IIB, advise pt continue to followup Dr Lima at the [facility] (7) hx of CAD with stent stable, pt has home meds of aspirin and Plavix, resume these meds. pt had ECHO done at 04/25 which revealed EF 50-55%, pt had home meds of Metoprolol and Lisinopril, resume these meds (8) Hypertension Conclusion/Plan: stable, resume home meds metoprolol and lisinopril (9) Diabetes mellitus Conclusion/Plan: stable. A1C is 6.9. hold metformin. add Accu checks. slide scale, hypoglycemia protocol (10) malnutrition pt has loss of appetite, weight loss 9% in the past 14 months, BMI 16.2. pt has hx of lung cancer in therapy, and hx of COPD consult with health care / medical job titles, followup recommendations add megace (11) generalized weakness PT/OT evaluated and treated, recommended to SNF for more training, will followup continue PT/OT (4) Accidental fall Qualifiers: Encounter type: initial encounter Qualified Code(s): W19.XXXA - Unspecified fall, initial encounter (5) Thoracic vertebral fracture Qualifiers: Encounter type: initial encounter Thoracic vertebra fracture level: T9 Fracture type: closed Fracture morphology: wedge compression Qualified Code(s): S22.070A - Wedge compression fracture of T9-T10 vertebra, initial encounter for closed fracture - Current Meds Current Meds: Current Medications Generic Name Dose Route Start Last Admin Trade Name Freq PRN Reason Stop Dose Admin Hydrocodone Bitart/Acetaminophen 1 tab 05/12/19 17:40 05/13/19 17:04 [place] 5/325 PO 1 tab Q6H PRN Administration Pain 5 to 7 Albuterol/Ipratropium 3 ml 05/12/19 15:00 05/14/19 07:13 Duoneb INH 3 ml RTQID MILADY Administration Alendronate Sodium 70 mg 05/13/19 07:30 05/13/19 07:58 Fosamax PO 70 mg Q7D MILADY Administration Aspirin 81 mg 05/13/19 09:00 05/14/19 08:28 Ecotrin PO 81 mg DAILY MILADY Administration Atorvastatin Calcium 20 mg 05/12/19 21:00 05/13/19 20:17 Lipitor PO 20 mg QPM MILADY Administration Budesonide 0.5 mg 05/13/19 19:00 05/14/19 07:12 Pulmicort INH 0.5 mg RTBID MILADY Administration Calcium Carbonate/Glycine 1,000 mg 05/13/19 09:00 05/13/19 10:58 Oysco-500 PO Not Given DAILY [facility] Cholecalciferol 800 unit 05/13/19 09:00 05/13/19 09:20 Vitamin D3 PO 800 unit DAILY MILADY Administration Cholecalciferol 1,000 unit 05/13/19 09:00 05/13/19 09:21 Vitamin D3 PO 1,000 unit DAILY MILADY Administration Famotidine 20 mg 05/12/19 21:00 05/14/19 08:27 Pepcid PO 20 mg DAILY MILADY Administration Formoterol Fumarate 20 mcg 05/12/19 19:00 05/14/19 07:13 Perforomist INH 20 mcg RTBID [facility] Administration Guaifenesin 600 mg 05/13/19 09:00 05/14/19 08:28 Mucinex PO 600 mg DAILY [facility] Administration Heparin Sodium (Beef Lung) 30 - 50 unit 05/12/19 21:23 05/12/19 21:42 IVP 30 unit PRN PRN Administration Port Protocol (<24 hours) Hydromorphone HCl 0.5 mg 05/12/19 20:56 05/14/19 08:23 Dilaudid Inj Syringe IVP 0.5 mg Q2H PRN Administration PAIN Ibuprofen 400 mg 05/12/19 13:28 05/12/19 17:43 Motrin PO 400 mg Q6HR PRN Administration Pain 1 to 4 Insulin Aspart 1 - 5 unit 05/13/19 12:00 05/14/19 08:31 Novolog SUBQ Not Given 0800,1200,1700,2100 [facility] Protocol Levofloxacin 500 mg 05/12/19 17:00 05/12/19 17:44 Levaquin PO 500 mg Q48H MILADY Administration Lisinopril 10 mg 05/12/19 21:00 05/14/19 08:27 Zestril PO 10 mg BID MILADY Administration Megestrol Acetate 400 mg 05/13/19 13:00 05/14/19 08:28 Megace PO 400 mg DAILY MILADY Administration Metoprolol Tartrate 25 mg 05/12/19 21:00 05/14/19 08:28 Lopressor PO 25 mg BID MILADY Administration Montelukast Sodium 10 mg 05/12/19 21:00 05/13/19 20:18 Singulair PO 10 mg QPM MILADY Administration Giemq-7-Xwzy Ethyl Esters 1 gm 05/13/19 09:00 05/13/19 10:58 Lovaza PO Not Given DAILY MILADY Ondansetron HCl 4 mg 05/13/19 12:22 05/13/19 13:30 Zofran Inj IVP 4 mg Q4HR PRN Administration Nausea / Vomiting Polyethylene Glycol 17 gm 05/13/19 09:00 05/14/19 08:29 Miralax PO 17 gm DAILY MILADY Administration Prednisone 20 mg 05/13/19 11:00 05/14/19 08:27 Deltasone PO 20 mg DAILYWM MILADY Administration Prochlorperazine Edisylate 10 mg 05/12/19 13:28 05/13/19 08:03 Compazine Inj IVP 10 mg Q6HR PRN Administration Nausea / Vomiting Saccharomyces Boulardii 250 mg 05/12/19 17:00 05/14/19 08:27 Florastor PO 250 mg BIDWM MILADY Administration Sodium Chloride 10 ml 05/12/19 13:28 05/14/19 05:44 Normal Saline Flush 0.9% IVP 10 ml PRN PRN Administration NEEDED PER PROVIDER ORDERS Sodium Chloride 10 ml 05/12/19 17:00 05/14/19 08:31 Normal Saline Flush 0.9% IVP 10 ml 0100,0900,1700 MILADY Administration Sodium Chloride 20 ml 05/12/19 21:23 05/14/19 05:44 Normal Saline Flush 0.9% IVP 20 ml PRN PRN Administration After Blood Draw - Lab Result Fish Bone Diagrams: 05/14/19 05:45 05/14/19 05:45 - Additional Planning My Orders: My Active Orders 05/13/19 10:14 Blood Glucose Checks - Eating [RC] 0800,1200,1700,2100 Initiate Hypoglycemia Protocol [RC] .protocol 05/13/19 11:00 predniSONE [Deltasone] 20 mg PO DAILYWM 05/13/19 12:00 Insulin Aspart [NovoLOG] 1 - 5 unit SUBQ 0800,1200,1700,2100 05/13/19 12:22 Ondansetron Inj [Zofran Inj] 4 mg IVP Q4HR PRN 05/13/19 13:00 Megestrol [Megace] 400 mg PO DAILY 05/13/19 19:00 Budesonide [Pulmicort] 0.5 mg INH RTBID 05/14/19 FECAL OCCULT BLOOD (FIT) Urgent 05/15/19 05:00 BMP - BASIC METABOLIC PANEL [CHEM] DAILYLAB CBC - COMP BLD CT W/AUTO DIFF [HEME] DAILYLAB MAGNESIUM [CHEM] DAILYLAB 05/16/19 05:00 BMP - BASIC METABOLIC PANEL [CHEM] DAILYLAB CBC - COMP BLD CT W/AUTO DIFF [HEME] DAILYLAB 05/17/19 05:00 BMP - BASIC METABOLIC PANEL [CHEM] DAILYLAB CBC - COMP BLD CT W/AUTO DIFF [HEME] DAILYLAB 05/18/19 05:00 BMP - BASIC METABOLIC PANEL [CHEM] DAILYLAB CBC - COMP BLD CT W/AUTO DIFF [HEME] DAILYLAB Objective Vital Signs: Vital Signs - 24 hr 05/13/19 05/13/19 05/13/19 11:40 13:20 15:45 Temperature Heart Rate 78 86 Heart Rate [ Brachial] Respiratory 14 14 Rate Blood Pressure Blood Pressure [Right Brachial artery] O2 Saturation 89 L 05/13/19 05/13/19 05/13/19 16:00 19:41 20:18 Temperature 35.2 C L Heart Rate 82 Heart Rate [ 84 Brachial] Respiratory 20 18 Rate Blood Pressure 121/57 L Blood Pressure 156/69 H [Right Brachial artery] O2 Saturation 92 05/14/19 05/14/19 05/14/19 00:00 07:15 07:37 Temperature 36.7 C 36.4 C L Heart Rate 84 Heart Rate [ 74 88 Brachial] Respiratory 16 16 19 Rate Blood Pressure Blood Pressure 104/50 L 159/76 H [Right Brachial artery] O2 Saturation 99 97 Oxygen O2 Source Nasal cannula I&O (Last 24 Hrs): Intake and Output Totals x24h 05/12/19 05/13/19 05/14/19 23:59 23:59 23:59 Intake Total 225 740 610 Output Total 500 Balance 225 240 610 - Results Results: Laboratory Results WBC 6.4 x10^3/uL (4.8-10.8) 05/14/19 05:45 RBC 2.83 10^6/uL (4.20-5.40) L 05/14/19 05:45 Hgb 8.9 g/dL (12.0-16.0) L 05/14/19 05:45 Hct 27.3 % (37.0-47.0) L 05/14/19 05:45 MCV 96.5 fL (81.0-99.0) 05/14/19 05:45 MCH 31.4 pg (27.0-31.0) H 05/14/19 05:45 MCHC 32.6 g/dL (32.0-36.0) 05/14/19 05:45 RDW 19.0 % (12.0-15.0) H 05/14/19 05:45 Plt Count 165 10^3/uL (130-450) 05/14/19 05:45 MPV 9.7 fL (7.9-10.8) 05/14/19 05:45 Neut # (Auto) 5.1 10^3/uL (1.5-6.6) 05/14/19 05:45 Lymph # (Auto) 0.3 10^3/uL (1.5-3.5) L 05/14/19 05:45 [place] # (Auto) 0.8 10^3/uL (0.0-1.0) 05/14/19 05:45 Eos # (Auto) 0.1 10^3/uL (0.0-0.7) 05/14/19 05:45 Baso # (Auto) 0.0 10^3/uL (0.0-0.1) 05/14/19 05:45 Absolute Nucleated RBC 0.00 x10^3/uL 05/14/19 05:45 Nucleated RBC % 0.0 /100WBC 05/14/19 05:45 Sodium 136 mmol/L (135-145) 05/14/19 05:45 Potassium 3.6 mmol/L (3.5-5.0) 05/14/19 05:45 Chloride 99 mmol/L (101-111) L 05/14/19 05:45 Carbon Dioxide 29 mmol/L (21-32) 05/14/19 05:45 Anion Gap 8.0 (6-13) 05/14/19 05:45 BUN 17 mg/dL (6-20) 05/14/19 05:45 Creatinine 0.7 mg/dL (0.4-1.0) 05/14/19 05:45 Estimated GFR (MDRD) 80 (>89) L 05/14/19 05:45 Glucose 144 mg/dL (70-100) H 05/14/19 05:45 POC Whole Bld Glucose 131 mg/dL (70 - 100) H 05/14/19 07:30 Glycated Hemoglobin 6.9 % (4.6-6.2) H 05/13/19 05:44 Estim Average Glucose 151 (70-100) H 05/13/19 05:44 Calcium 8.9 mg/dL (8.5-10.3) 05/14/19 05:45 Iron 61 ug/dL (28-170) 05/13/19 05:44 TIBC 217 ug/dL (250-450) L 05/13/19 05:44 % Saturation 28 % (20-50) 05/13/19 05:44 Transferrin 155 mg/dL (192-382) L 05/13/19 05:44 Total Bilirubin 1.1 mg/dL (0.2-1.0) H 05/12/19 13:48 AST 15 IU/L (10-42) 05/12/19 13:48 ALT 13 IU/L (10-60) 05/12/19 13:48 Alkaline Phosphatase 54 IU/L (42-121) 05/12/19 13:48 Total Protein 6.5 g/dL (6.7-8.2) L 05/12/19 13:48 Albumin 3.0 g/dL (3.2-5.5) L 05/12/19 13:48 Globulin 3.5 g/dL (2.1-4.2) 05/12/19 13:48 Albumin/Globulin Ratio 0.9 (1.0-2.2) L 05/12/19 13:48 Vitamin B12 1049 pg/mL (180-914) H 05/14/19 05:45 Folate 15.29 ng/mL (5.90 - >24.8) 05/13/19 05:44 - Procedures Procedures: Procedures INSERTION OF INFUSION DEV INTO SUP VENA CAVA, PERC APPROACH (03/02/19) Sepsis Event Note (H) - Evaluation Current Stage of Sepsis: Ruled out ABX Reporting Has patient been on IV antibiotics over the past 48 hours?: Yes
[2019-05-14] MEDS ORDERED: IPRATROPIUM/ALBUTEROL 3 ML NEB INH PRN (12:28)
[2019-05-14] MEDS: oxyCODONE 5 MG TABLET PO PRN ×3 (14:02→22:52)
[2019-05-14] MEDS: SENNA 8.6 MG TABLET PO SCH ×2 (17:13→17:29)
[2019-05-14] MEDS: levoFLOXacin 250 MG TABLET PO SCH (17:13)
[2019-05-14] MEDS: ATORVASTATIN 10 MG TABLET PO SCH (20:36)
[2019-05-14] MEDS: MONTELUKAST 10 MG TABLET PO SCH (20:36)
[2019-05-15] MEDS: BUDESONIDE 0.5 MG/2 ML NEB INH SCH ×2 (03:04→07:28)
[2019-05-15] MEDS: FORMOTEROL FUMARATE NEB 20 MCG/2 ML INH SCH ×2 (03:04→07:28)
[2019-05-15] MEDS: SODIUM CHLORIDE FLUSH 0.9% 10 ML SYRINGE IVP PRN ×3 (05:21→12:46)
[2019-05-15 05:43] LABS: BASOPHILS % (AUTO) 0.1 %; EOSINOPHILS % (AUTO) 0.3 %; LYMPHOCYTES # (AUTO) 0.3 10^3/uL (1.5-3.5); LYMPHOCYTES % (AUTO) 3.3 %; MEAN CORPUSCULAR HEMOGLOBIN 30.6 pg (27.0-31.0); MEAN CORPUSCULAR VOLUME 95.6 fL (81.0-99.0); MEAN PLATELET VOLUME 9.8 fL (7.9-10.8); MONOCYTES # (AUTO) 0.9 10^3/uL (0.0-1.0); MONOCYTES % (AUTO) 9.4 %; NEUTROPHILS # (AUTO) 8.3 10^3/uL (1.5-6.6); NEUTROPHILS % (AUTO) 85.6 %; PLT - PLATELET COUNT 177 10^3/uL (130-450); RED BLOOD COUNT 2.94 10^6/uL (4.20-5.40); RED CELL DISTRIBUTION WIDTH 19.2 % (12.0-15.0); WHITE BLOOD COUNT 9.7 x10^3/uL (4.8-10.8)
[2019-05-15 05:45] LABS: CALCIUM 9.1 mg/dL (8.5-10.3); CREATININE 0.9 mg/dL (0.4-1.0); MAGNESIUM 1.8 mg/dL (1.7-2.8)
[2019-05-15] MEDS ORDERED: BISACODYL 10 MG SUPP PR ONE ×2 (06:00→10:38)
[2019-05-15 07:37] VITALS: BP 144/79
[2019-05-15] MEDS ORDERED: SODIUM CHLORIDE 0.9% 1,000 ML IV SCH (08:00)
[2019-05-15] MEDS: CHOLECALCIFEROL 400 UNIT TABLET PO SCH (08:29)
[2019-05-15] MEDS: ASPIRIN EC 81 MG TABLET PO SCH (08:30)
[2019-05-15] MEDS: METOPROLOL TARTRATE 25 MG TABLET PO SCH (08:30)
[2019-05-15] MEDS: predniSONE 20 MG TABLET PO SCH (08:31)
[2019-05-15] MEDS: oxyCODONE 5 MG TABLET PO PRN ×2 (08:31→12:09)
[2019-05-15] MEDS: CHOLECALCIFEROL 1,000 UNIT TABLET PO SCH ×2 (08:31→08:42)
[2019-05-15] MEDS: SACCHAROMYCES BOULARDII 250 MG CAPSULE PO SCH (08:32)
[2019-05-15] MEDS: OMEGA-3 ACID ETHYL ESTERS 1 GM CAPSULE PO SCH ×2 (08:32→08:41)
[2019-05-15] MEDS: INSULIN ASPART 300 UNIT/3 ML PEN SUBQ SCH ×2 (08:40→12:45)
[2019-05-15] MEDS: CALCIUM CARB (OYSTER SHELL) 500 MG TABLET PO SCH (08:41)
[2019-05-15] MEDS: LISINOPRIL 5 MG TABLET PO SCH (08:45)
[2019-05-15] MEDS: MEGESTROL 400 MG/10 ML UDC PO SCH (08:45)
[2019-05-15] MEDS: guaiFENesin 600 MG TABLET PO SCH (08:45)
[2019-05-15] MEDS: FAMOTIDINE 20 MG TABLET PO SCH (08:45)
[2019-05-15] MEDS: POLYETHYLENE GLYCOL 3350 17 GM PACKET PO SCH ×2 (08:45→10:51)
[2019-05-15] MEDS: SODIUM CHLORIDE FLUSH 0.9% 10 ML SYRINGE IVP SCH (08:45)
--- NOTE | 2019-05-15 08:58 | Discharge Plan ---
"Discharge Plan for SNF / [facility] - Discharge Plan And Transition Orders Problem Reviewed?: Yes Disposition: 03 SNF DC/Xfer Condition: Poor Allergies and Adverse Reactions: Allergies Allergy/AdvReac Type Severity Reaction Status Date / Time lidocaine Allergy Unknown Verified 05/11/19 15:47 Health Concerns: shortness of breath, fall Plan of Treatment: pt has lung cancer, s/p radiation and chemotherapy, plus hx of COPD, and pneumonitis plus infection, all these facts can contribute her SOB. pt want everything done to her. advise pt followup her oncologist, breath treatment, low dosage of Prednisone plus antibiotics, and oxygen. pt had a fall leading to T9 fracture in the home. CT of spinal indicate osteopenic cause. pt is prescribed medications and d/c to SNF for more training. Care Goals: stabilization and improvement Assessment: assessment as the above - SNF / [facility] Transition Orders Admit to (Facility): [facility] Under the care of (Name): health provider of [facility] Discharge Diagnosis: hypoxia, SOB, lung cancer, fall with T9 fracture, pneumonitis, COPD, hx of CAD, DM2, HTN, malnutrition, weakness. Medicare Certification Statement: I certify that [facility] residential care is medically necessary on a continuing basis for any of the conditions for which she/he is receiving care during hospitalization. Notify PCP of admission and forward orders to primary provider for signature. Weight on admission and: Daily Call PCP immediately if weight increases by: 2 kg Other Notification Orders: Call PCP immediately if patient develops dyspnea, chest pain/tightness or edema. House Bowel Program: Yes Additional Bowel Program Orders: If no BM after 2 days, nurse may give M.O.M. 30ml PO PRN and/or ducolax Supp 1 AL and/or JEANMARIE 250mg P.O., and/or senna 1-2 tabs PO. On day 3 nurse may give repeat above order until residents constipation is resolved. Annual Influenza Vaccine (between Mar 08 and October 05): Yes Two-step PPD per [facility] [phone] or approved exception documents: Yes Treatments & Other Orders: pt may followup health provider of [facility] when she is arrival, followup oncologist and claims collector as out-pt, followup PT/OT/ST. Oxygen Orders: 1-2 liter by TX or as needed Medication Orders: PLEASE REFER TO THE DISCHARGE MEDICATION LIST. Insulin Orders?: No - Medications New Prescriptions: Albuterol Sulf [Ventolin Hfa Inhaler] 1 - 2 puffs INH Q4HR PRN #1 inhaler PRN Reason: Shortness Of Air/Wheezing oxyCODONE [Roxicodone] 5 mg PO Q4HR PRN #15 tablet PRN Reason: Pain Alendronate [Fosamax] 70 mg PO Q7D #1 tablet Ipratropium/Albuterol [Duoneb] 3 ml INH QID PRN #10 neb PRN Reason: Wheezing levoFLOXacin [Levaquin] 500 mg PO Q48H #3 tablet predniSONE [Deltasone] 10 mg PO DAILYWM #3 tablet - Diet Type: Geriatric Texture: Regular Liquids: Thin May have monthly special meal: Yes - Therapies | Activity Therapy: Evaluation | Treat if indicated: PT, OT, Swallowing / ST Rehabilitation Potential: Maximize functional status Activity: Activity as Tolerated Additional Instructions: pt may followup health provider of [facility] when she is arrival, followup oncologist and claims collector as out-pt, followup PT/OT/ST."
--- NOTE | 2019-05-15 09:19 | DISCHARGE SUMMARY ---
Discharge Summary Admit Date: 05/12/19 Discharge Date: 05/15/19 Discharging Provider: BRANTLEY Primary Care Provider: Elly Gallardo Condition at Discharge: Poor Discharge Disposition: 03 SNF DC/Xfer Discharge Facility Name: [facility] - DIAGNOSES Admission Diagnoses: (1) Acute respiratory failure with hypoxia (2)fall with spinal T9 fracture (3) Pneumonitis (4) COPD (5) shortness of breath (6) Lung cancer (7) Hypertension (8) Diabetes mellitus (9) malnutrition Discharge Diagnoses with Status of Each Condition: (1) Acute respiratory failure with hypoxia improved and stable. pt has 95% sat with 1 liter of o2. d/c to [facility] (2)fall with spinal T9 fracture stable, d/c to [facility]. pt is prescribed fosamax, plus home meds calcium and Vitamin D3. pt is prescribed pain meds oxycodone for pain control (3) Pneumonitis stable. pt is prescribed low dosage of Predinsone. Pneumonitis is likely from recent radiation treatment. (4) COPD stable, pt has 95% sat with 1 liter of o2. pt is prescribed Duoneb, Albuterol PRN (5) shortness of breath stable/improved. it is likely combination of pt's lung cancer, COPD, pneumonitis, infection. pt is prescribed Levaquin antibiotics to finish the treatment course. (6) Lung cancer stable, followup her oncologist (7) hx of CAD with stent stable, resume home aspirin and Plavix (8) Hypertension stable (9) Diabetes mellitus stable (10) malnutrition pt present mild to moderate malnutrition. Pt was consulted and instructed by supervisor felling bucking (11) generalized weakness improved. d/c to SNF continue PT/OT/ST. pt has previous dysphagia caused by her radiation therapy, now she is improved - HPI History of Present Illness: pt had hx of lung cancer, s/p radiation and chemotherapy, COPD. she was admitted for hypoxia with shortness of breath, and fall with back pain. - HOSPITAL COURSE Hospital Course: pt was admitted for hypoxia with shortness of breath, a fall with T9 fracture. pt was treated with breath treatment, steroid for her pneumonitis, antibiotics for her infection. pt continue to be treated and evaluated by PT/OT. pt had pain control for her T9 fracture. pt was recommended by Pt/OT to SNF. after treatment, pt's respiratory status is stable. pt is d/c to [facility]. the detail hospital course is as the below: (1) Acute respiratory failure with hypoxia improved and stable. pt has 95% sat with 1 liter of o2. d/c to [facility] SN[facility] (2)fall with spinal T9 fracture stable, d/c to SNF [facility]. pt is prescribed fosamax, plus home meds calcium and Vitamin D3. pt is prescribed pain meds oxycodone for pain control (3) Pneumonitis stable. pt is prescribed low dosage of Predinsone. Pneumonitis is likely from recent radiation treatment. (4) COPD stable, pt has 95% sat with 1 liter of o2. pt is prescribed Duoneb, Albuterol PRN (5) shortness of breath stable/improved. it is likely combination of pt's lung cancer, COPD, pneumonitis, infection. pt is prescribed Levaquin antibiotics to finish the treatment course. (6) Lung cancer stable, followup her oncologist (7) hx of CAD with stent stable, resume home aspirin and Plavix (8) Hypertension stable (9) Diabetes mellitus stable (10) malnutrition pt present mild to moderate malnutrition. Pt was consulted and instructed by supervisor felling bucking (11) generalized weakness improved. d/c to SNF continue PT/OT/ST. pt has previous dysphagia caused by her radiation therapy, now she is improved - ALLERGIES Allergies/Adverse Reactions: Allergies Allergy/AdvReac Type Severity Reaction Status Date / Time lidocaine Allergy Unknown Verified 05/11/19 15:47 - MEDICATIONS Home Medications: Ambulatory Orders Medication Instructions Recorded Confirmed Lisinopril 10 mg PO BID 03/25/14 05/12/19 Simvastatin 40 mg PO QPM 03/25/14 05/12/19 Aspirin [Aspir 81] 81 mg PO DAILY 08/01/14 05/12/19 Metformin HCl 500 mg PO BID 08/01/14 05/12/19 Cholecalciferol (Vitamin D3) 1,000 unit PO DAILY 01/27/16 05/12/19 [Vitamin D3] Calcium Carbonate/Vitamin D3 2 tab PO DAILY 04/20/19 05/12/19 [Calcium 600-Vit D3 400 Tablet] Metoprolol Tartrate 25 mg PO BID 05/05/19 05/12/19 Hydrocodone/Acetaminophen 1 tab PO DAILY PRN 05/12/19 05/12/19 [Hydrocodone-Acetamin 5-325 mg] [place]-3S/Dha/Epa/Fish Oil [[place]-3 1 cap PO DAILY 05/12/19 05/12/19 Fish Oil 1,200 mg Sfgl] Albuterol Sulf [Ventolin Hfa 1 - 2 puffs INH Q4HR PRN #1 inhaler 05/15/19 Inhaler] Alendronate [Fosamax] 70 mg PO Q7D #1 tablet 05/15/19 Ipratropium/Albuterol [Duoneb] 3 ml INH QID PRN #10 neb 05/15/19 Sodium Chloride [Saline Mist] 44 ml NS Q6H PRN #1 spray 05/15/19 levoFLOXacin [Levaquin] 500 mg PO Q48H #3 tablet 05/15/19 oxyCODONE [Roxicodone] 5 mg PO Q4HR PRN #15 tablet 05/15/19 predniSONE [Deltasone] 10 mg PO DAILYWM #3 tablet 05/15/19 - PHYSICAL EXAM AT DISCHARGE General Appearance: positive: No acute distress, Alert. negative: Lethargic Eyes Bilateral: positive: Normal inspection, PERRL, No lid inflammation ENT: positive: ENT inspection nml, Pharynx nml, No signs of dehydration. negative: Purulent nasal drainage Neck: positive: Nml inspection, Thyroid nml, No JVD, Trachea midline. negative: Thyromegaly, Lymphadenopathy (R), Lymphadenopathy (L), Stiff neck, Tracheal deviation Respiratory: positive: Chest non-tender, No respiratory distress. negative: Wheezes, Rales, Rhonchi Cardiovascular: positive: Regular rate & rhythm, No murmur, No gallop. negative: Irregularly irregular, Extrasystoles, Tachycardia, Bradycardia, JVD present, Systolic murmur, Diastolic murmur Peripheral Pulses: positive: 2+ Abdomen: positive: Non-tender, No organomegaly, Nml bowel sounds, No distention. negative: Tenderness, Guarding, Rebound Back: positive: Nml inspection. negative: CVA tenderness (R), CVA tenderness (L) Skin: positive: Color nml, No rash, Warm, Dry. negative: Cyanosis, Diaphoresis, Pallor Extremities: positive: Non-tender, Nml appearance. negative: Calf tenderness, Brooke's sign/cords Neurologic/Psychiatric: positive: Oriented x3, Sensation nml, Mood/affect nml. negative: Weakness, Sensory loss, Facial droop, Slurred/abnml speech, Depressed mood/affect - LABS Result Diagrams: 05/15/19 05:20 05/15/19 05:20 - SEPSIS Current Stage of Sepsis: Ruled out - FOLLOW UP Follow Up: pt has lung cancer, s/p radiation and chemotherapy, plus hx of COPD, and pneumonitis plus infection, all these facts can contribute her SOB. pt want everything done to her. advise pt followup her oncologist, breath treatment, low dosage of Prednisone plus antibiotics, and oxygen. pt had a fall leading to T9 fracture in the home. CT of spinal indicate osteopenic cause. pt is prescribed medications and d/c to SNF for more training. pt may followup health provider of [facility] when she is arrival, followup oncologist and stenotype operator as out-pt, followup PT/OT/ST. - TIME SPENT Time Spent in Discharge (Minutes): 50
[2019-05-15] MEDS ORDERED: MAGNESIUM HYDROXIDE 2,400 MG/30 ML UDC PO ONE (10:38)
[2019-05-15] MEDS: SENNA 8.6 MG TABLET PO SCH (10:49)
== END 2019-05-15 11:23 | DRG 205 ==
LOC: ED 15:42 → MS2 05-12 11:09
PROVIDERS: ADMIT Internal Medicine; ATTEND Nurse Practitioner Gerontology
DX: G89.11 Acute pain due to trauma (principal); R09.02 Hypoxemia; J70.0 Acute pulmonary manifestations due to radiation; M40.209 Unspecified kyphosis, site unspecified; J96.01 Acute respiratory failure with hypoxia; Z68.1 Body mass index [BMI] 19.9 or less, adult; E44.0 Moderate protein-calorie malnutrition; M80.08XA Age-related osteoporosis with current pathological fracture, vertebra(e), initial encounter for fracture; E78.00 Pure hypercholesterolemia, unspecified; I25.2 Old myocardial infarction; C34.90 Malignant neoplasm of unspecified part of unspecified bronchus or lung; C79.9 Secondary malignant neoplasm of unspecified site; J84.10 Pulmonary fibrosis, unspecified; J47.9 Bronchiectasis, uncomplicated; Z95.828 Presence of other vascular implants and grafts; J43.9 Emphysema, unspecified; Z60.2 Problems related to living alone; Z85.118 Personal history of other malignant neoplasm of bronchus and lung; I25.10 Atherosclerotic heart disease of native coronary artery without angina pectoris; Z92.3 Personal history of irradiation; I10 Essential (primary) hypertension; Y84.2 Radiological procedure and radiotherapy as the cause of abnormal reaction of the patient, or of later complication, without mention of misadventure at the time of the procedure; Y92.009 Unspecified place in unspecified non-institutional (private) residence as the place of occurrence of the external cause; E11.9 Type 2 diabetes mellitus without complications; Z91.81 History of falling; Z87.891 Personal history of nicotine dependence; Z79.82 Long term (current) use of aspirin; Z79.899 Other long term (current) drug therapy; Z92.21 Personal history of antineoplastic chemotherapy; Z79.84 Long term (current) use of oral hypoglycemic drugs; Z95.5 Presence of coronary angioplasty implant and graft; Z99.81 Dependence on supplemental oxygen; Z79.02 Long term (current) use of antithrombotics/antiplatelets
CPT/HCPCS: 36415; 71045; 72070; 72128; 80048; 80053; 82607; 82746; 83036; 83540; 83735; 84466; 85025; 94640; 96372; 96374; 96376; 97116; 97161; 97165; 97530; 99284; 99285; A9270; J1170; J7512; J7626

== ENCOUNTER 2019-06-15 11:36 | Outpatient (CLI) | payer MEDICARE, OTHER ==
--- NOTE | 2019-06-16 08:31 | XRAY Report ---
Reason: PNEUMONIA Procedure Date: 06/15/2019 Accession Number: [id number] / [id number] Procedure: WCP - Chest 2 View X-Ray CPT Code: 08012 Final Report FULL RESULT: EXAM: CHEST RADIOGRAPHY EXAM DATE: 06/15/2019 11:36 AM. CLINICAL HISTORY: PNEUMONIA. COMPARISON: CHEST 1 VIEW 05/12/2019 1:23 PM THORACIC SPINE 2 VIEW 05/12/2019 12:08 PM THORACIC SPINE W/O 05/12/2019 8:04 AM CHEST ANGIO 05/04/2019 4:22 PM CHEST 2 VIEW 05/01/2019 2:40 PM. TECHNIQUE: 2 views. FINDINGS: Lungs/Pleura: Increased ill-defined confluent opacity in the perihilar left upper lobe compared to the prior study. There is more silhouetting of the left heart border. No effusions. No change in reticular opacities in the right costophrenic angle. Mediastinum: Heart and mediastinal contours are unremarkable. Other: Left chest port again noted. Compression fracture deformity of the T9 vertebral body, with progression of height loss anteriorly. Slightly more kyphotic angulation. IMPRESSION: 1. Worsening left upper lobe perihilar disease compared to the prior exam. Consider CT of the chest. 2. Progression of height loss of a T9 compression fracture. RADIA
== END 2019-06-15 23:59 | disposition home or self-care (01) ==
LOC: DI.WCP 11:36
PROVIDERS: ATTEND Family Medicine
DX: J18.9 Pneumonia, unspecified organism (principal)
CPT/HCPCS: 71046

== ENCOUNTER 2019-06-22 10:17 | Outpatient (CLI) | payer MEDICARE, OTHER ==
[2019-06-22] MEDS ORDERED: GADOBUTROL 7.5 MMOL/7.5 ML VIAL ONE (10:27)
[2019-06-22] MEDS ORDERED: GADOBUTROL 7.5 MMOL/7.5 ML VIAL IVP ONE (12:05)
--- NOTE | 2019-06-22 13:07 | MRI Report ---
Reason: LUNG CA Procedure Date: 06/22/2019 Accession Number: [id number] / [id number] Procedure: MRI - Cervical Spine W/WO CPT Code: Final Report FULL RESULT: EXAM: MRI CERVICAL SPINE WITHOUT AND WITH CONTRAST EXAM DATE: 06/22/2019 10:45 AM. CLINICAL HISTORY: Lung cancer. Neck and back pain. Recent CT showed a T9 compression fracture. COMPARISON: CT thoracic spine w/o 05/12/2019 8:04 AM images and report from [facility]. TECHNIQUE: Multiplanar, multisequence T1-weighted and fluid-sensitive sequences of the cervical spine before and after administration of intravenous contrast. Other: None. IV contrast: 3.5 mL Gadavist given IV, no reaction. FINDINGS: Neurologic Structures: The visualized posterior fossa structures are unremarkable. No signal abnormality in the visualized spinal cord. Alignment: No scoliosis or spondylolisthesis. Bone Marrow: No gross fractures or bone lesions. No marrow edema or abnormal enhancement. Interspace Levels/Facets: C1-C2: Unremarkable. C2-C3: Broad-based disk bulge. Prominent facets. No stenosis. C3-C4: Annular tear, broad-based disk protrusion with effacement of the ventral thecal sac, with some deformity of the left ventral cord. No abnormal cord signal or areas of abnormal enhancement. Severe bilateral foraminal stenosis. Moderate central stenosis. Broad-based disk bulge, disk dehydration, short pedicles. C4-C5: No CSF surrounds the nerve roots at this level, AP diameter of the canal is 6.6 mm. No abnormal T2 signal or contrast enhancement in the cord. Severe central and bilateral severe foraminal stenosis. C5-C6: Disk osteophyte complex and broad-based disk bulge/protrusion also present with substantial effacement of ventral cord. No surrounding fluid. AP diameter of the canal is 5.1 mm. No abnormal cord signal. Severe central and severe bilateral foraminal stenosis. C6-C7: Broad-based disk bulge is present. Moderate central stenosis. Moderate bilateral foraminal stenosis. C7-T1: Broad-based disk bulge, disk dehydration. No central or foraminal stenosis. Spinal Canal: No enhancing lesions within the spinal canal. No epidural abscess. Musculature: Moderate fatty atrophy of the multifidus musculature also noted. Other: The paravertebral and prevertebral soft tissues are normal. IMPRESSION: 1. Spinal cord shows no areas of abnormal increased T2 signal. Visualized posterior fossa appears unremarkable. No evidence of bony erosive or destructive changes, no fractures. 2. C3-C4 shows a broad-based protrusion with some deformity of the left ventral cord. Moderate central stenosis and severe bilateral foraminal stenosis. 3. C4-C5 shows AP diameter of the canal measuring 6.6 mm. Severe central and bilateral foraminal stenosis. No increased T2 signal in the cord. 4. C5-C6 shows AP diameter of 5.1 mm. Severe central and severe bilateral foraminal stenosis. No areas of abnormal increased T2 signal in the cord. 5. C6-C7 shows moderate central stenosis and moderate bilateral foraminal stenosis. RADIA
== END 2019-06-22 10:18 | disposition home or self-care (01) ==
LOC: DI 10:17
PROVIDERS: ATTEND Internal Medicine
DX: M50.31 Other cervical disc degeneration, high cervical region (principal); M48.02 Spinal stenosis, cervical region; M50.21 Other cervical disc displacement, high cervical region
CPT/HCPCS: 72156; A9585

== ENCOUNTER 2019-06-25 09:25 | Outpatient (CLI) | payer MEDICARE, OTHER ==
[2019-06-25] MEDS ORDERED: GADOBUTROL 10 MMOL/10 ML VIAL IVP ONE (10:57)
--- NOTE | 2019-06-26 09:23 | MRI Report ---
Reason: LUNG CA, FRACTURE Procedure Date: 06/25/2019 Accession Number: [id number] / [id number] Procedure: MRI - Lumbar Spine W/WO CPT Code: Final Report FULL RESULT: EXAM: MRI LUMBAR SPINE WITHOUT AND WITH CONTRAST EXAM DATE: 06/25/2019 11:08 AM. CLINICAL HISTORY: Known lung carcinoma. T9 fracture. Possible bony metastases. COMPARISONS: LUMBAR SPINE W/O 03/24/2016 8:47 AM. TECHNIQUE: Multiplanar, multisequence T1-weighted and fluid-sensitive sequences of the lumbar spine from T12 to S1 before and after administration of intravenous contrast. Other: None. IV contrast: 5 mL of Gadavist. FINDINGS: Neurologic Structures: The conus terminates at L1-L2. The conus medullaris and cauda equina are unremarkable. Alignment: There is a 7 degree levoscoliosis centered on L4. There is a 2 mm retrolisthesis at L4-L5. Bone Marrow: Five [id number] lumbar vertebral bodies are assumed. There is Modic type II change at the L4-L5 level. Disk Levels/Facets: T12-L1: Unremarkable. L1-L2: There is a broad-based posterior disk bulge causing mild canal narrowing. The foramina are patent. L2-L3: There is a small posterior disk bulge with mild facet joint osteoarthritis causing minimal canal and foraminal narrowing. L3-L4: There is a small posterior disk bulge causing mild canal narrowing. There is minimal facet joint osteoarthritis. There is mild bilateral foraminal narrowing. L4-L5: There is a broad-based posterior disk bulge with a right paracentral disk extrusion. The fragment extends inferiorly along the posterior surface of L5, posteriorly displacing the right L5 nerve root in the lateral recess. There is mild canal narrowing. There is moderate right and mild left foraminal narrowing. L5-S1: There is minimal facet joint osteoarthritis. Spinal Canal: No enhancing masses within the spinal canal. No epidural abscess. Musculature: Normal. No edema, abnormal enhancement, or fatty atrophy. Other: The visualized retroperitoneum is unremarkable. IMPRESSION: 1. No marrow lesions to suggest metastatic disease. 2. Mild degenerate change of the lumbar spine worst at L4-L5. 3. L4-L5: Mild canal narrowing. Right paracentral disk extrusion posteriorly displaces the right L5 nerve root in the lateral recess. There is moderate right foraminal narrowing. The disk extrusion was present on the prior study in 2016. Comment: The following findings are so common in adults without low back pain that while we report their presence, they must be interpreted with caution and in the context of the clinical situation. (Reference Vipulk et al, Spine 2001) Prevalence of findings in patients without low back pain: Disk degeneration (any evidence): 92% Disk desiccation/T2 signal loss: 83% Disk height loss: 56% Disk bulge: 64% Disk protrusion: 32% Annular tear/high intensity zone: 38% RADIA
== END 2019-06-25 09:26 | disposition home or self-care (01) ==
LOC: DI 09:25
PROVIDERS: ATTEND Internal Medicine
DX: M80.08XA Age-related osteoporosis with current pathological fracture, vertebra(e), initial encounter for fracture (principal); C34.32 Malignant neoplasm of lower lobe, left bronchus or lung; M47.817 Spondylosis without myelopathy or radiculopathy, lumbosacral region; M51.26 Other intervertebral disc displacement, lumbar region
CPT/HCPCS: 72158

== ENCOUNTER 2019-06-30 10:32 | Outpatient (CLI) | payer MEDICARE, OTHER ==
[2019-06-30] MEDS ORDERED: GADOBUTROL 10 MMOL/10 ML VIAL ONE (10:34)
[2019-06-30] MEDS ORDERED: GADOBUTROL 10 MMOL/10 ML VIAL IVP ONE (11:36)
--- NOTE | 2019-06-30 15:23 | MRI Report ---
Reason: LUNG CA Procedure Date: 06/30/2019 Accession Number: [id number] / [id number] Procedure: MRI - Thoracic Spine W/WO CPT Code: Final Report FULL RESULT: EXAM: MRI THORACIC SPINE WITHOUT AND WITH CONTRAST EXAM DATE: 06/30/2019 11:42 AM. CLINICAL HISTORY: Lung cancer. Follow-up thoracic compression fracture. COMPARISONS: CT of the chest 06/18/2019. TECHNIQUE: Multiplanar, multisequence T1-weighted and fluid-sensitive sequences of the thoracic spine from C7 to L1 before and after administration of intravenous contrast. Other: None. IV contrast: Without and with 5 mL IV Gadavist. FINDINGS: Spinal Cord: Posterior displacement and minimal anterior flattening of the thoracic cord by potentially pathologic burst fracture of T9 level without evidence for focal cord signal abnormality. Otherwise unremarkable appearance of the thoracic cord which appears to terminate at the L1 level. Incompletely visualized lower cervical cord, only seen on sagittal images, there may be mechanical degenerative cord impingement from degenerative spinal stenosis, for example at the C4-C5 and C5-C6 cervical levels but these findings are incompletely visualized on this study. Alignment: No significant change of alignment. Mild focal kyphosis from T9 vertebral body fracture. Bone Marrow: Similar findings of severe T9 vertebral body height loss from complete burst fracture with posterior fracture fragment displacement/angulation, not significantly changed compared to the previous study. Extensive T9 vertebral marrow signal abnormality is present including T2 hyperintensity and enhancement which is most evident in the lateral and posterior vertebral body and throughout the posterior elements, findings worrisome for pathologic fatty marrow signal replacement from metastatic bone disease. No other definite thoracic vertebra pathologic signal change. Possible abnormal T2 hyperintensity with enhancement of the medial left seventh rib. There are findings of increased marrow space T1 signal especially below T4 which may be secondary to previous radiation therapy. Disk Levels/Facets: Prominent, but incompletely visualized, degenerative changes in the cervical spine where there appears to be multilevel degenerative spinal stenosis. In the thoracic spine, central stenosis is only present at the T9 level from posterior bone displacement related to fracture. Foraminal stenosis, fracture-related, also present bilaterally at T8-T9 and T9-T10. The remaining thoracic foraminal contours are grossly maintained. No focal thoracic disk herniation. Intervertebral disk spaces are grossly maintained. Spinal Canal: At the T9 level there appears to be mild abnormal epidural thickening and enhancement. This may be from recent trauma, but pathologic epidural space tumor infiltration with enhancement is suspected. No other evidence for focal enhancing or space-occupying thoracic spinal canal mass separate from the T9 level pathology. Musculature: Abnormal T2 hyperintensity with enhancement is present in the posterior paraspinal soft tissues including musculature centered around the T9 level extending from T8 inferiorly through T11. There is likely a component of extraosseous tumor infiltration adjacent to the T9 posterior elements. Additional paraspinal muscle enhancement and edema is present which may represent trauma/muscle strain, additional neoplastic infiltrate or nonspecific myositis. Other: Extensive pulmonary/pleural abnormality, more fully demonstrated by previous separately reported CT of the chest. IMPRESSION: 1. Potentially pathologic T9 vertebral body burst fracture. Extensive T9 vertebra marrow signal abnormality consistent with metastatic disease, likely with an epidural and posterior paravertebral extraosseous component of enhancing tumor. 2. Moderate fracture-related central stenosis with mild cord compression at T9 but without cord T2 hyperintense signal change to suggest edema. 3. Possible bone metastasis also of the medial left seventh rib. RADIA
== END 2019-06-30 10:33 | disposition home or self-care (01) ==
LOC: DI 10:32
PROVIDERS: ATTEND Internal Medicine
DX: C34.32 Malignant neoplasm of lower lobe, left bronchus or lung (principal); M48.54XA Collapsed vertebra, not elsewhere classified, thoracic region, initial encounter for fracture; M48.04 Spinal stenosis, thoracic region; M89.9 Disorder of bone, unspecified
CPT/HCPCS: 72157; A9585

== ENCOUNTER 2019-10-29 06:51 | Outpatient (CLI) | payer MEDICARE, OTHER ==
[2019-10-29] MEDS ORDERED: IOVERSOL 320 50 ML VIAL ONE (07:00)
[2019-10-29] MEDS ORDERED: IOVERSOL 320 100 ML VIAL IVP ONE ×2 (07:00→14:15)
[2019-10-29] MEDS ORDERED: GADOBUTROL 7.5 MMOL/7.5 ML VIAL ONE (07:11)
[2019-10-29] MEDS ORDERED: GADOBUTROL 7.5 MMOL/7.5 ML VIAL IVP ONE (08:21)
--- NOTE | 2019-10-29 09:34 | MRI Report ---
Reason: LEFT LOWER LOBE LUNG CA Procedure Date: 10/29/2019 Accession Number: [id number] / [id number] Procedure: MRI - Thoracic Spine W/WO CPT Code: Final Report FULL RESULT: EXAM: MRI THORACIC SPINE WITHOUT AND WITH CONTRAST EXAM DATE: 10/29/2019 08:45 AM. CLINICAL HISTORY: Left lower lobe lung CA. COMPARISONS: THORACIC SPINE W/WO 06/30/2019 10:49 AM CHEST W/ 06/18/2019 1:11 PM. TECHNIQUE: Multiplanar, multisequence T1-weighted and fluid-sensitive sequences of the thoracic spine from C7 to L1 before and after administration of intravenous contrast. Other: None. IV contrast: 5 mL Gadavist. FINDINGS: Spinal Cord: No signal abnormality in the visualized spinal cord. No abnormal intraspinal enhancement. Alignment: No scoliosis or spondylolisthesis. Bone Marrow: Vertebral plana compression fracture of the T9 vertebral body is once again evident. 4 mm broad-based retropulsion of the posterior aspect of the T9 vertebral body is seen. This effaces the thecal sac with mild canal stenosis. This is unchanged. Previously noted bone marrow edema within the T9 posterior vertebral body extending into pedicles and facet processes is improved. This suggests interval healing from edema secondary to pathologic fracture. Abnormal bone marrow replacement is seen involving the posteromedial left eighth rib. This is centered at the costotransverse articulation. This is likely not significantly changed. No new areas of abnormal bone marrow replacement are appreciated. Disk Levels/Facets: C7-T1 through T12-L1: No significant spondylosis. No dorsal disk protrusion or extrusion. No significant degenerative facet change. No spondylotic canal or foraminal stenosis. Spinal Canal: No enhancing masses within the spinal canal. No epidural abscess. Musculature: Normal. No edema, enhancement, or fatty atrophy. Other: Abnormal patchy infiltrate is seen scattered throughout partially visualized posterior lung zones greatest inferiorly on the left. IMPRESSION: 1. Stable vertebral plana compression fracture of the T9 vertebral body. 4 mm retropulsion of the posterior vertebral body is seen with mild canal stenosis. Mild improvement in previously noted bone marrow edema within the posterior vertebral body as well as bilateral pedicle and facet processes is seen. 2. Stable metastatic focus in the posteromedial left eighth rib centered at the costotransverse articulation. 3. Normal appearance to the thoracic spinal cord. No abnormal intraspinal enhancement. No spondylotic stenosis. RADIA
[2019-10-29] MEDS ORDERED: IOVERSOL 320 50 ML VIAL PO ONE (14:15)
--- NOTE | 2019-10-30 13:24 | CT Report ---
Reason: LEFT LOWER LOBE LUNG CA Procedure Date: 10/29/2019 Accession Number: [id number] / [id number] Procedure: CT - Abdomen/Pelvis W CPT Code: Final Report FULL RESULT: EXAM: CT ABDOMEN AND PELVIS EXAM DATE: 10/29/2019 10:29 AM. CLINICAL HISTORY: Left lower lobe lung CA. COMPARISONS: CHEST W06/18/2019 1:11 PM CHEST W/ 11/21/2018 12:14 PM ABDOMEN LIMITED US 04/11/2011 11:04 PM. TECHNIQUE: Routine helical CT imaging was performed through the abdomen and pelvis. IV contrast: 80 mL Optiray 320. Enteric contrast: Yes. Reconstructions: Coronal and sagittal. In accordance with CT protocol optimization, one or more of the following dose reduction techniques were utilized for this exam: automated exposure control, adjustment of mA and/or KV based on patient size, or use of iterative reconstructive technique. FINDINGS: Lung Bases: Small left pleural effusion. Left lower lobe atelectasis and potential airspace disease. Bibasilar fibrotic changes. Liver: Diffuse decreased liver attenuation compatible with fatty infiltration. Geographic focal fat deposition along gloria hepatis on axial series 5 image 23 measuring 2.1 cm transverse by 1.9 cm AP by 3.6 cm craniocaudal on sagittal series 16 image 39. Patent portal vein. No suspicious lesion demonstrated. Gallbladder/Bile Ducts: Unremarkable. Spleen: Normal. Pancreas: Normal. Adrenal Glands: Normal. Kidneys: Normal. No masses or hydronephrosis. Peritoneal Cavity/Bowel: Colonic diverticulosis. No focal inflammation. No dilated bowel. Pelvic Organs: Prior hysterectomy. Unremarkable bladder. No adnexal abnormality evident. Vasculature: Extensive atherosclerotic calcifications. No abdominal aortic aneurysm. Bones: Lower lumbar spine degenerative changes. Chronic lower thoracic compression fracture. Other: None. IMPRESSION: 1. No evidence for metastatic disease within the abdomen or pelvis. 2. Diverticulosis. 3. Diffuse fatty liver infiltration and focal fat along gloria hepatis. RADIA
--- NOTE | 2019-10-30 14:22 | CT Report ---
Reason: LEFT LOWER LOBE LUNG CA Procedure Date: 10/29/2019 Accession Number: [id number] / [id number] Procedure: CT - CHEST W CPT Code: Final Report FULL RESULT: EXAM: CT CHEST EXAM DATE: 10/29/2019 09:51 AM. CLINICAL HISTORY: Left lower lobe lung ca. COMPARISONS: CHEST W/ 06/18/2019 1:11 PM. TECHNIQUE: Routine helical CT imaging was performed through the chest. IV contrast: 80 mL Optiray 320. Reconstructions: Coronal and sagittal. In accordance with CT protocol optimization, one or more of the following dose reduction techniques were utilized for this exam: automated exposure control, adjustment of mA and/or KV based on patient size, or use of iterative reconstructive technique. FINDINGS: Lungs/Pleura: 1.9 x 1.4 cm posterior left lower lobe lung nodule on series 5, image 145 is stable compared to CT of 06/18/2019. Bandlike postradiation changes are present within the adjacent left upper lobe on image 121. Small left pleural effusion with partial posterior left lower lobe collapse. Honeycombing is present, most pronounced within posterior right lower lobe. Similar changes anterior right upper lobe near minor fissure. Mild emphysema. Mild bilateral lower lobe bronchiectasis. Mediastinum: Extensive 3 vessel coronary arterial calcification. Cardiomegaly. No pericardial effusion. No bulky mediastinal adenopathy. Bones: Stable chronic severe T9 compression fracture. No new fracture demonstrated. Visualized Abdomen: Diffuse fatty liver infiltration with geographic focal fat along the posterior gloria hepatis. Vessels do not appear to be affected by the focal fat. Other: None. IMPRESSION: 1. Stable left lower lobe lung nodule. 2. Postradiation changes involving left lower lung. 3. Small left pleural effusion. 4. 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 5. Mild centrilobular emphysema. RADIA
== END 2019-10-29 06:52 | disposition home or self-care (01) ==
LOC: DI 06:51
PROVIDERS: ATTEND Radiology Therapeutic Radiology
DX: C34.32 Malignant neoplasm of lower lobe, left bronchus or lung (principal); K57.30 Diverticulosis of large intestine without perforation or abscess without bleeding; K76.0 Fatty (change of) liver, not elsewhere classified; J90 Pleural effusion, not elsewhere classified; J70.1 Chronic and other pulmonary manifestations due to radiation; J43.2 Centrilobular emphysema; M48.54XD Collapsed vertebra, not elsewhere classified, thoracic region, subsequent encounter for fracture with routine healing; C79.51 Secondary malignant neoplasm of bone
CPT/HCPCS: 71260; 72157; 74177; A9585; Q9967

== ENCOUNTER 2020-02-25 08:56 | Outpatient (CLI) | payer MEDICARE, OTHER ==
--- NOTE | 2020-02-25 09:33 | XRAY Report ---
PROCEDURE: Wrist 3 View RT INDICATIONS: R wrist pain TECHNIQUE: 3 views of the wrist were acquired. COMPARISON: None FINDINGS: Bones: No fractures or dislocations. Mild to moderate osteoarthritic changes throughout wrist joint s are seen more prominent at radiocarpal joint and first CMC joint. No suspicious bony lesions. Scaphoid view: Scaphoid is intact. No evidence of avascular necrosis. Soft tissues: No suspicious soft tissue calcifications. 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 No fracture or dislocation. Mild dorsal wrist soft tissue swelling. Reviewed by: Marcellus Zurita MD on 02/25/2020 9:31 AM PDT Approved by: Marcellus Zurita MD on 02/25/2020 9:31 AM PDT Station ID: [id number]
== END 2020-02-25 08:57 | disposition home or self-care (01) ==
LOC: DI.N 08:56
PROVIDERS: ATTEND Family Medicine
DX: M19.031 Primary osteoarthritis, right wrist (principal)

== ENCOUNTER 2020-05-10 07:00 | Outpatient (CLI) | payer MEDICARE, OTHER | END 2020-05-10 23:59 | disposition home or self-care (01) | LOC: LAB.R 07:00 | PROVIDERS: ATTEND Family Medicine | DX: R53.83 Other fatigue (principal); Z20.828 Contact with and (suspected) exposure to other viral communicable diseases ==

== ENCOUNTER 2020-10-29 12:50 | Emergency (ER) | payer MEDICARE, OTHER ==
[2020-10-29 13:39] LABS: BASOPHILS % (AUTO) 0.5 %; EOSINOPHILS # (AUTO) 0.2 10^3/uL (0.0-0.7); HCT - HEMATOCRIT 37.2 % (37.0-47.0); HGB - HEMOGLOBIN 12.1 g/dL (12.0-16.0); LYMPHOCYTES % (AUTO) 12.1 %; MEAN CORPUSCULAR HEMOGLOBIN 30.9 pg (27.0-31.0); MEAN CORPUSCULAR HGB CONC 32.5 g/dL (32.0-36.0); MEAN CORPUSCULAR VOLUME 94.9 fL (81.0-99.0); MONOCYTES # (AUTO) 0.7 10^3/uL (0.0-1.0); MONOCYTES % (AUTO) 7.9 %; NEUTROPHILS # (AUTO) 6.5 10^3/uL (1.5-6.6); NEUTROPHILS % (AUTO) 76.7 %; PLT - PLATELET COUNT 239 10^3/uL (130-450); RED BLOOD COUNT 3.92 10^6/uL (4.20-5.40); RED CELL DISTRIBUTION WIDTH 12.7 % (12.0-15.0); WHITE BLOOD COUNT 8.5 x10^3/uL (4.8-10.8)
[2020-10-29 13:49] LABS: ALBUMIN 4.2 g/dL (3.2-5.5); ALBUMIN/GLOBULIN RATIO 1.1 (1.0-2.2); BILIRUBIN,TOTAL 0.9 mg/dL (0.2-1.0); CALCIUM 9.3 mg/dL (8.5-10.3); CREATININE 0.9 mg/dL (0.4-1.0); POTASSIUM 4.5 mmol/L (3.5-5.0); TOTAL PROTEIN 7.9 g/dL (6.7-8.2)
--- NOTE | 2020-10-29 13:52 | XRAY Report ---
PROCEDURE: Chest 1 View X-Ray INDICATIONS: Chest pain TECHNIQUE: One view of the chest was acquired. COMPARISON: 03/11/2016, 03/24/2014. Correlation is made with chest CT examinations 10/19/2020, , 04/07/2020 FINDINGS: Surgical changes and devices: There is a left-sided chest port again seen. Lungs and pleura: No pleural effusions or pneumothorax. Consolidative change can be seen involving t he left lung base, which is likely similar to the prior CT. Denies interstitial prominence is seen. Mediastinum: Calcification is seen of the aortic arch. Bones and chest wall: No suspicious bony lesions. Age-appropriate degenerative changes are seen. Mi ld dextroconvex scoliotic curvature is seen. Overlying soft tissues appear unremarkable. IMPRESSION: Consolidative change can be seen at the left lung base, which is believed to be stable to the recent prior chest CT. Reviewed by: Luis Govea MD on 10/29/2020 12:51 PM AKDT Approved by: Luis Govea MD on 10/29/2020 12:51 PM AKDT Station ID: [id number]
--- NOTE | 2020-10-29 14:11 | ED Physician Documentation ---
PD HPI FOCAL NEURO - Stated complaint Stated Complaint: DIZZY/HTN - Chief complaint Chief Complaint: General - History obtained from History obtained from: Patient - Additional information Additional information: This is a chuck 85-year-old woman, from [facility] who presents with 2 days of feeling like she is drunk and difficulty walking. She denies any dizziness when still, or sitting. But she just feels like she cannot really ambulate normally. With this she has noted elevated blood pressures despite taking an extra dose of metoprolol. She denies headache. She has a history of coronary disease, diabetes, hypertension. No history of stroke. Review of Systems Ten Systems: 10 systems reviewed and negative Constitutional: denies: Fever, Chills Nose: reports: Reviewed and negative Throat: reports: Reviewed and negative Cardiac: reports: Reviewed and negative Respiratory: reports: Reviewed and negative PD PAST MEDICAL HISTORY - Past Medical History Cardiovascular: Hypertension, High cholesterol, Coronary artery disease, [place], Other Respiratory: COPD, Emphysema Neuro: None Endocrine/Autoimmune: Type 2 diabetes GI: None : None HEENT: Chronic vision loss, Macular degeneration Psych: None Musculoskeletal: Chronic back pain Derm: None - Past Surgical History Past Surgical History: Yes 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 Cardiovascular: Coronary stent HEENT: Cataracts - Present Medications Home Medications: Ambulatory Orders Medication Instructions Recorded Confirmed Lisinopril 10 mg PO BID 03/25/14 10/26/20 Simvastatin 40 mg PO QPM 03/25/14 10/26/20 Aspirin [Aspir 81] 81 mg PO DAILY 08/01/14 10/26/20 Metformin HCl 500 mg PO BID 08/01/14 10/26/20 Cholecalciferol (Vitamin D3) 1,000 unit PO DAILY 01/27/16 10/26/20 [Vitamin D3] Calcium Carbonate/Vitamin D3 2 tab PO DAILY 04/20/19 10/26/20 [Calcium 600-Vit D3 400 Tablet] Metoprolol Tartrate 25 mg PO BID 05/05/19 10/26/20 Hydrocodone/Acetaminophen 1 tab PO DAILY PRN 05/12/19 10/26/20 [Hydrocodone-Acetamin 5-325 mg] [place]-3S/Dha/Epa/Fish Oil [[place]-3 1 cap PO DAILY 05/12/19 10/26/20 Fish Oil 1,200 mg Sfgl] - Allergies Allergies/Adverse Reactions: Allergies Allergy/AdvReac Type Severity Reaction Status Date / Time lidocaine Allergy Unknown Verified 10/29/20 12:54 - Social History Does the pt smoke?: No Smoking Status: Never smoker Does the pt drink ETOH?: No Does the pt have substance abuse?: No - Immunizations Immunizations are current?: Yes - POLST Patient has POLST: No POLST Status: Full Code PD ED PE NORMAL - Vitals Vital signs reviewed: Yes - General General: Alert and oriented X 3, No acute distress - HEENT HEENT: PERRL, EOMI - Neck Neck: Supple, no meningeal sign, No bony TTP - Cardiac Cardiac: RRR, No murmur - Respiratory Respiratory: No respiratory distress, Clear bilaterally - Abdomen Abdomen: Normal bowel sounds, Soft, Non tender - Back Back: No CVA TTP, No spinal TTP - Derm Derm: Normal color, Warm and dry - Extremities Extremities: No edema, No calf tenderness / cord - Neuro Neuro: Alert and oriented X 3, Normal speech, Other (I got her up to ambulate her and actually she ambulates better than about 95% of 85-year-old I would say. There is really no disequilibrium with ambulation or ataxia with ambulation.) NIHSS - Time Time: 14:05 - Level of Consciousness Level of consciousness: (0) Alert, Keenly responsive LOC Questions: (0) Answers both Q's correct LOC Commands: (0) Performs both correctly - Gaze Best Gaze: (0) Normal - Visual Visual: (0) No loss - Facial Palsy Facial Palsy: (0) Normal, symmetrical movement - Motor Arms (both separate) Motor Arm (right): (0) No drift Motor Arm (left): (0) No drift - Motor Legs (both separate) Motor Leg (right): (0) No drift Motor Leg (left): (0) No drift - Limb Ataxia Limb Ataxia: (0) Absent - Sensory Sensory: (0) Normal - Best Language Best Language: (0) No aphasia - Dysarthria Dysarthria: (0) Normal - Extinction and Inattention (formally neg Extinction and inattention: (0) No abnormality - Total Score/Results Total Score/Result: 0 Results - Vitals Vitals: Vital Signs - 24 hr 10/29/20 12:54 Temperature 36.7 C Heart Rate 78 Respiratory 16 Rate Blood Pressure 173/92 H O2 Saturation 96 Oxygen O2 Source Room air - EKG (time done) 1306 Rate: Rate (enter#) (68) Rhythm: NSR, LAE [place]: Normal Intervals: Normal [place] QRS: LVH Ischemia: Q waves (inferior). No: ST elevation c/w ischemia, ST elevation c/w repol, ST depression Computer interpretation: Agree with computer - Labs Labs: Laboratory Tests 10/29/20 10/29/20 10/29/20 13:32 13:32 13:32 WBC 8.5 RBC 3.92 L Hgb 12.1 Hct 37.2 MCV 94.9 MCH 30.9 MCHC 32.5 RDW 12.7 Plt Count 239 MPV 9.0 Neut # (Auto) 6.5 Lymph # (Auto) 1.0 L [place] # (Auto) 0.7 Eos # (Auto) 0.2 Baso # (Auto) 0.0 Absolute Nucleated RBC 0.00 Nucleated RBC % 0.0 Sodium 136 Potassium 4.5 Chloride 100 L Carbon Dioxide 26 Anion Gap 10.0 BUN 24 H Creatinine 0.9 Estimated GFR (MDRD) 59 L Glucose 107 H Calcium 9.3 Total Bilirubin 0.9 AST 16 ALT 12 Alkaline Phosphatase 68 Troponin I High Sens 7.4 Total Protein 7.9 Albumin 4.2 Globulin 3.7 Albumin/Globulin Ratio 1.1 Lipase 29 PD MEDICAL DECISION MAKING - ED course ED course: This is a chuck 85-year-old woman with few days of disequilibrium which on exam seems mild without obvious physical findings. Out of an abundance of caution CT angiography of the head and neck were done without pertinent positive acute findings. She does have some vascular disease but frankly probably better than most [id number]. She does have an elevated BUN and I offered to try some IV fluids, however at that juncture her IV had already been removed at her request and she did not want it replaced. Departure - Departure Disposition: 01 Home, Self Care Clinical Impression: Hypertension Qualifiers: Hypertension type: essential hypertension Qualified Code(s): I10 - Essential (primary) hypertension Condition: Good Record reviewed to determine appropriate education?: Yes Instructions: ED HTN Established, ED Dizziness UKO Comments: Double your lisinopril, per our med list you should be taking it twice a day instead of once so take it twice a day going forward. Follow-up with your doctor this coming week for recheck. Return if worse in any way.
[2020-10-29] MEDS ORDERED: IOPAMIDOL-300 100 ML VIAL ONE (14:12)
[2020-10-29] MEDS ORDERED: IOPAMIDOL-300 100 ML VIAL IVP ONE (15:00)
--- OUTSIDE RECORDS SUMMARY | 2020-10-29 15:09 | EXTERNAL MEDICAL SUMMARY RPT | Continuity of Care Document ---
:1935 Demographics Phone Unavailable Preferred Language Unknown Marital Status Unknown Quaker Affiliation Unknown Race Unknown Ethnic Group Unknown Author Organization [place] Address [address] [id number] Phone Social History date description facility [phone]
[2020-10-29] MEDS ORDERED: SODIUM CHLORIDE 0.9% 1,000 ML IV STA (15:12)
--- NOTE | 2020-10-29 15:20 | CT Report ---
PROCEDURE: ANGIO NECK W INDICATIONS: vertigo CONTRAST: IV CONTRAST: Isovue 300 ml: 80 PO CONTRAST: *NO PO CONTRAST TECHNIQUE: After the administration of intravenous contrast, 1.5 mm axial sections acquired from the aortic arch to the [place]. Coronal 3-D maximum intensity projection (MIP) and/or volume rendering ref ormats were then performed. For radiation dose reduction, the following was used: automated exposur e control, adjustment of mA and/or kV according to patient size. COMPARISON: CTA head from today FINDINGS: Image quality: Excellent. Carotid system: Great vessel origins are not included on this study. The visualized portions of the b rachiocephalic artery, left common carotid artery, and left subclavian artery are widely patent. The right common carotid artery is widely patent. The origins of the common carotid arteries appear paten t. The common carotid arteries demonstrate normal calibers and courses. Mild, less than 50% proximal left internal carotid artery stenosis. Mild, less than 50% proximal right internal carotid artery st enosis. The right internal carotid is tortuous. Posterior circulation: The origins of the vertebral arteries appear patent. There is plaque causing a mild stenosis of the distal left vertebral artery. There is mild basilar artery stenotic disease. Soft tissues: Visualized neck soft tissues demonstrate no suspicious abnormalities. The thyroid gla nd is normal in size. Moderate centrilobular emphysema. Bones: No suspicious bony lesions. Visualized cervical spine appears normally aligned. IMPRESSION: 1. The takeoff of the great vessels from the aortic arch is not included in the study. 2. Mild bilateral proximal internal carotid artery stenoses, less than 50%. 3. Mild vertebrobasilar disease without a stenosis greater than mild. 4. Moderate centrilobular emphysema. Above discussed with Noé Novoa MD at the time of dictation on 10/29/2020 at 1515 hours. The estimate of stenosis included in the report of the imaging study was calculated using the NASCET method Reviewed by: Joshua Rainey MD on 10/29/2020 3:18 PM PDT Approved by: Joshua Rainey MD on 10/29/2020 3:18 PM PDT Station ID: [id number]
--- NOTE | 2020-10-29 15:20 | CT Report ---
PROCEDURE: ANGIO HEAD W/WO INDICATIONS: vertigo CONTRAST: IV CONTRAST: Isovue 300 ml: 80 PO CONTRAST: *NO PO CONTRAST TECHNIQUE: Precontrast 4.5 mm thick angled axial sections acquired from the foramen magnum to the vertex. Afte r the administration of intravenous contrast, 1 mm thick sections acquired through the [place] is. Postcontrast 4.5 mm thick sections then re-acquired from the foramen magnum to the vertex. 3-di mensional jivnjwc-uhhgztqpr-ghiyvjogou (MIP) and/or volume rendering reformats were acquired of the c entral intracranial vasculature. For radiation dose reduction, the following was used: automated ex posure control, adjustment of mA and/or kV according to patient size. COMPARISON: Brain MRI with and without contrast dated 02/05/2019 FINDINGS: Image quality: Excellent. Anterior circulation: Intracranial internal carotid arteries are normal in size and flow. The flow within the paired anterior cerebral arteries is normal and symmetric. The flow within the middle cer ebral arteries is normal and symmetric. The anterior communicating artery is seen. No aneurysms are seen. Posterior circulation: Visualized portions of the vertebral arteries demonstrate normal caliber, and join to form the basilar artery. There is a mild basilar artery stenosis. Flow within the posterior cerebral arteries is normal and symmetric. No aneurysms are seen. CSF spaces: Ventricles are normal in size and shape. Basal cisterns are patent. No extra-axial flu id collections. Brain: No midline shift. No intracranial bleeds or masses. Carr-white matter interface appears int act. Bilateral basal ganglia dilated perivascular spaces. Age-related volume loss and small vessel is chemic change. Skull and face: Calvarium and facial bones appear intact, without suspicious lesions. Sinuses: Visualized sinuses and mastoids are clear. IMPRESSION: 1. Age-related volume loss, small vessel ischemic change. 2. No evidence acute stroke, hemorrhage, or mass. 3. Mild basilar artery stenosis. Otherwise unremarkable CTA head with no significant stenosis, aneury sm, occlusion, or focal filling defect. Above discussed with JONATHAN GELLER at the time of dictation on 10/29/2020 at 1515 hours. Reviewed by: Joshua Rainey MD on 10/29/2020 3:18 PM PDT Approved by: Joshua Rainey MD on 10/29/2020 3:18 PM PDT Station ID: [id number]
[2020-10-29 15:28] VITALS: BP 204/91
== END 2020-10-29 15:32 | disposition home or self-care (01) ==
LOC: ED 12:50
DX: I10 Essential (primary) hypertension (principal); R42 Dizziness and giddiness; E11.9 Type 2 diabetes mellitus without complications; Z79.84 Long term (current) use of oral hypoglycemic drugs; I25.10 Atherosclerotic heart disease of native coronary artery without angina pectoris; Z95.5 Presence of coronary angioplasty implant and graft; Z79.82 Long term (current) use of aspirin; J43.2 Centrilobular emphysema
CPT/HCPCS: 36415; 70496; 70498; 71045; 80053; 83690; 84484; 85025; 93005; 99284; Q9967

== ENCOUNTER 2020-11-14 08:40 | Emergency (ER) | payer MEDICARE, OTHER ==
--- NOTE | 2020-11-14 08:49 | ED Physician Documentation ---
PD HPI Fall - Stated complaint Stated Complaint: FALL - Chief complaint Chief Complaint: Trauma Hd/Nk - History obtained from History obtained from: Patient - History of Present Illness Mechanism of injury: Tripped (she went out to get the mail and states her slipper slipped on curb. Fell forward and caught fall with hands and knees, but did struck face/cheek on object.) Fall distance: Standing position Where injury occurred: Home Timing - onset: Today Injury(ies) location: Face (right periorbital), Right Upper Extremity (elbow and shoulder), Left Lower Extremity (abrasion left knee) Associated symptoms: No: LOC, AMS, Dyspnea, Nausea / vomiting Symptoms improve with: Rest Worsens with: Movement (mostly hurting with ROM of right arm/elbow) Contributing factors: No: Anticoagulated, Intoxicated Similar symptoms before: Has not had sx before Recently seen: Not recently seen Review of Systems Constitutional: denies: Fever, Chills Nose: denies: Rhinorrhea / runny nose, Congestion Throat: denies: Sore throat Cardiac: denies: Chest pain / pressure Respiratory: denies: Cough GI: denies: Abdominal Pain, Nausea, Vomiting Skin: reports: Laceration (s) (right upper cheek) Musculoskeletal: denies: Neck pain, Back pain Neurologic: denies: Focal weakness, Numbness, Altered mental status, Headache PD PAST MEDICAL HISTORY - Past Medical History Cardiovascular: Hypertension, High cholesterol, Coronary artery disease, [place], Other Respiratory: COPD, Emphysema Neuro: None Endocrine/Autoimmune: Type 2 diabetes GI: None : None HEENT: Chronic vision loss, Macular degeneration Psych: None Musculoskeletal: Chronic back pain Derm: None - Past Surgical History Past Surgical History: Yes 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 Cardiovascular: Coronary stent HEENT: Cataracts - Present Medications Home Medications: Ambulatory Orders Medication Instructions Recorded Confirmed Lisinopril 10 mg PO BID 03/25/14 10/26/20 Simvastatin 40 mg PO QPM 03/25/14 10/26/20 Aspirin [Aspir 81] 81 mg PO DAILY 08/01/14 10/26/20 Metformin HCl 500 mg PO BID 08/01/14 10/26/20 Cholecalciferol (Vitamin D3) 1,000 unit PO DAILY 01/27/16 10/26/20 [Vitamin D3] Calcium Carbonate/Vitamin D3 2 tab PO DAILY 04/20/19 10/26/20 [Calcium 600-Vit D3 400 Tablet] Metoprolol Tartrate 25 mg PO BID 05/05/19 10/26/20 Hydrocodone/Acetaminophen 1 tab PO DAILY PRN 05/12/19 10/26/20 [Hydrocodone-Acetamin 5-325 mg] [place]-3S/Dha/Epa/Fish Oil [[place]-3 1 cap PO DAILY 05/12/19 10/26/20 Fish Oil 1,200 mg Sfgl] - Allergies Allergies/Adverse Reactions: Allergies Allergy/AdvReac Type Severity Reaction Status Date / Time lidocaine Allergy Unknown Verified 11/14/20 08:47 - Social History Does the pt smoke?: No Smoking Status: Never smoker Does the pt drink ETOH?: No Does the pt have substance abuse?: No - Immunizations Immunizations are current?: Yes - POLST Patient has POLST: No POLST Status: Full Code PD ED PE NORMAL - Vitals Vital signs reviewed: Yes - General General: Alert and oriented X 3, No acute distress (does not seem uncomfortable except for ROM of the right elbow. ), Well developed/nourished - HEENT HEENT: PERRL, EOMI, Other (upper right cheek with 1.5 cm laceration with mild bleeding. Swelling lower lid. denies pain with ROM of the eye. ) - Neck Neck: Supple, no meningeal sign, No bony TTP - Cardiac Cardiac: RRR, No murmur - Respiratory Respiratory: Clear bilaterally, Other (no chestwall tenderness. ) - Abdomen Abdomen: Soft, Non tender - Derm Derm: Normal color, Warm and dry - Extremities Extremities: Other (right elbow with some swelling and pain with ROM but able to flex and extend fully. Left knee with abrasion but full ROM. No effusion. 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 No fractures. ), See rad report right elbow Radiology: Prelim report reviewed (radial head fracture, nondisplaced. ), See rad report Procedures - Laceration (location) right upper cheek Length in cm: 1.5 Wound type: Linear, Into subcut fat, Clean Neurovascular status: Sensory intact, Motor intact Anesthesia: LET Wound preparation: Wound explored, To the base. No: FB identified Skin layer closure: Nylon, Running, Size #-0 - enter number (5) Other: Patient tolerated well, No complications, Neurovascular intact, Dressing applied PD MEDICAL DECISION MAKING - ED course Complexity details: considered differential, d/w patient Departure - Departure Disposition: 01 Home, Self Care Clinical Impression: Multiple abrasions Fall from slip, trip, or stumble Qualifiers: Encounter type: initial encounter Qualified Code(s): W01.0XXA - Fall on same level from slipping, tripping and stumbling without subsequent striking against object, initial encounter Laceration of face Qualifiers: Encounter type: initial encounter Qualified Code(s): S01.81XA - Laceration without foreign body of other part of head, initial encounter Fracture of radial neck, closed Qualifiers: Encounter type: initial encounter Fracture alignment: nondisplaced Laterality: right Qualified Code(s): S52.134A - Nondisplaced fracture of neck of right radius, initial encounter for closed fracture Condition: Stable Record reviewed to determine appropriate education?: Yes Instructions: ED Fx Radial Head, ED Laceration Facial Sutr Tape Follow-Up: Magdi Troy DO [Primary Care Provider] - Comments: My suture care instructions: it is okay to wash and shower. Clean off the wound twice a day with soap and water, or peroxide and water. Apply some antibiotic ointment to it to keep it moist. Also to watch for signs of infection such as purulence, redness or increasing pain. Return to your primary care or the ER at the specified time for suture removal. Suture removal 7 or 8 days. Sling for the right arm to have mild/minimal use of the arm. Light use and some range of motion is okay for the elbow as it is healing. Follow-up with your primary care or the walk-in clinic or the ER for recheck and suture removal in 7 or 8 days. Typically would katie-ray the elbow to ensure its maintaining position. You could follow-up with orthopedics regarding the elbow, call for an appointment. Discharge Date/Time: 11/14/20 10:05
[2020-11-14 08:50] VITALS: BP 170/97
[2020-11-14] MEDS ORDERED: ACETAMINOPHEN 325 MG TABLET PO STA (09:02)
[2020-11-14] MEDS ORDERED: LIDOCAINE-EPINEPH-TETRACAINE 3 ML SYRINGE TOP STA (09:03)
--- NOTE | 2020-11-14 09:46 | XRAY Report ---
PROCEDURE: Shoulder 3 View RT INDICATIONS: fall, caught fall with right arm TECHNIQUE: 3 views of the shoulder were acquired. COMPARISON: None. FINDINGS: Bones: No fractures or dislocations. Moderate acromioclavicular joint osteophytic changes are seen. No suspicious bony lesions. Visualized ribs appear intact. Soft tissues: No suspicious soft tissue calcifications. IMPRESSION: No acute right shoulder fracture or dislocation. Moderate acromioclavicular joint osteoa rthritis. Reviewed by: Marcellus Zurita MD on 11/14/2020 9:44 AM PDT Approved by: Marcellus Zurita MD on 11/14/2020 9:44 AM PDT Station ID: [id number]
--- NOTE | 2020-11-14 09:46 | XRAY Report ---
PROCEDURE: Elbow 3 View RT INDICATIONS: fall, caught fall with right arm TECHNIQUE: 3 views of the elbow were acquired. COMPARISON: None FINDINGS: Bones: Acute minimally displaced fracture involving proximal right radial neck is seen extending to i ts articulation with capitellum. No other fracture or dislocation is seen. No suspicious bony lesion s. Soft tissues: Displacement of anterior and posterior fat pad is seen consistent with moderate to larg e joint effusion. No suspicious soft tissue calcifications. IMPRESSION: Minimally displaced right radial head and neck fracture with moderate to large joint effusion. Reviewed by: Marcellus Zurita MD on 11/14/2020 9:45 AM PDT Approved by: Marcellus Zurita MD on 11/14/2020 9:45 AM PDT Station ID: [id number]
[2020-11-14] MEDS ORDERED: BACITRACIN ZINC OINT 1 PACKET TOP STA (09:55)
== END 2020-11-14 10:05 | disposition home or self-care (01) ==
LOC: ED 08:40
DX: S52.134A Nondisplaced fracture of neck of right radius, initial encounter for closed fracture (principal); S01.411A Laceration without foreign body of right cheek and temporomandibular area, initial encounter; S80.212A Abrasion, left knee, initial encounter; W01.10XA Fall on same level from slipping, tripping and stumbling with subsequent striking against unspecified object, initial encounter; Y93.01 Activity, walking, marching and hiking; Y92.007 Garden or yard of unspecified non-institutional (private) residence as the place of occurrence of the external cause; M19.011 Primary osteoarthritis, right shoulder; I10 Essential (primary) hypertension; E11.9 Type 2 diabetes mellitus without complications; Z79.84 Long term (current) use of oral hypoglycemic drugs; Z79.82 Long term (current) use of aspirin
CPT/HCPCS: 12011; 73030; 73080; 99283; 99284; A9270

== ENCOUNTER 2020-12-21 07:40 | Outpatient (CLI) | payer MEDICARE, OTHER | END 2020-12-21 07:41 | disposition home or self-care (01) | LOC: DI 07:40 | PROVIDERS: ATTEND Family Medicine | DX: R53.83 Other fatigue (principal); Z92.3 Personal history of irradiation; I34.0 Nonrheumatic mitral (valve) insufficiency | CPT/HCPCS: 93306 ==

== ENCOUNTER 2021-02-10 08:50 | Outpatient (CLI) | payer MEDICARE, OTHER ==
--- NOTE | 2021-02-10 18:31 | Nuclear Medicine Report ---
PROCEDURE: Bone Whole Body INDICATIONS: LUNG CA RADIOPHARMACEUTICAL: 26.0 mCi Tc-99m MDP IV. TECHNIQUE: Delayed whole-body scintigrams were obtained approximately 3-4 hours after intravenous injection of r adiotracer. Anterior and posterior views were acquired from vertex to feet. Additional left and rig ht oblique views of the skull and cervical spine were obtained. COMPARISON: CT chest with contrast 10/19/2020 at 01/18/2021. CT abdomen and pelvis with contrast, 01/18. FINDINGS: There is a focus of mildly increased uptake in the lateral aspect of right third rib, inde terminate. On the comparison CT, a small sclerotic appearance is noted in the area is new since the l ast CT, suggesting callus formation secondary to a rib fracture. Increased uptake in maxilla and john ible is present, likely related to dental disease. There is abnormal uptake in the lower thoracic spi ne involving T9. The comparison chest CT demonstrates severe compression fracture of T9. Increased up take is also seen in T8 area, projecting to the costovertebral joints, likely related to costovertebr al arthritis. Focal increased uptake is noted in lumbar spine at the L4-L5 on the right side, correla ting with a large lateral osteophyte on the comparison CT. No lesions are identified in calvarium, st ernum, scapulae, clavicles, bony pelvis, and visualized long bones. Focal uptake in the right antecub ital fossa is likely the injection site. IMPRESSION: 1. Focal increased uptake in the lateral aspect of the right third rib. On the comparison CTs, there is a small sclerotic change, new since 10/19/2020. Differential diagnoses include a subacute rib fract ure versus early metastasis. Please correlate with history of trauma. 2. Increased uptake in T9 vertebradefinitive. There is severe compression fracture. 3. Degenerative changes are present as described. Reviewed by: Citlaly Mitchell MD on 02/10/2021 6:30 PM PDT Approved by: Citlaly Mitchell MD on 02/10/2021 6:30 PM PDT Station ID: [id number]
== END 2021-02-10 08:51 | disposition home or self-care (01) ==
LOC: DI 08:50
PROVIDERS: ATTEND Internal Medicine
DX: C34.12 Malignant neoplasm of upper lobe, left bronchus or lung (principal); M48.54XA Collapsed vertebra, not elsewhere classified, thoracic region, initial encounter for fracture
CPT/HCPCS: 78306

== ENCOUNTER 2021-06-23 08:13 | Outpatient (CLI) | payer MEDICARE, OTHER ==
--- NOTE | 2021-06-23 18:07 | DEXA Report ---
PROCEDURE: Dexa Spine and/or Hip INDICATIONS: OSTEOPOROSIS TECHNIQUE: Dual energy x-ray absorptiometry (DXA) was performed on a [employer] System. Regions measur ed are the AP Spine, femoral neck, and if needed forearm. COMPARISON: None. FINDINGS: Lumbar Spine: Bone Mineral Density 0.736 g/cm/cm,T score -3.7, osteoporosis Left Hip: Bone Mineral Density 0.596 g/cm/cm,T score -3.3, osteoporosis Left Femoral Neck: Bone Mineral Density 0.549 g/cm/cm, T score -3.5, osteoporosis (T score greater or equal to -1.0: NORMAL) (T score from -1.1 to -2.4: OSTEOPENIA) (T score less than or equal to -2.5 to: OSTEOPOROSIS) Impression: Osteoporosis. Patients with diagnosis of osteoporosis or osteopenia should have regular bone mineral density assess ment. For those eligible for Medicare, routine testing is allowed once every 2 years. Testing frequ ency can be increased for patients who have rapidly progressing disease or for those who are receivin g medical therapy to restore bone mass. Reviewed by: Iona Chun MD, PhD on 06/23/2021 6:06 PM PST Approved by: Iona Chun MD, PhD on 06/23/2021 6:06 PM PST Station ID: [id number]
== END 2021-06-23 08:14 | disposition home or self-care (01) ==
LOC: DI 08:13
PROVIDERS: ATTEND Internal Medicine
DX: M81.0 Age-related osteoporosis without current pathological fracture (principal); C34.12 Malignant neoplasm of upper lobe, left bronchus or lung; C34.32 Malignant neoplasm of lower lobe, left bronchus or lung; C79.51 Secondary malignant neoplasm of bone

== ENCOUNTER 2021-09-18 12:50 | Emergency (ER) | payer MEDICARE, OTHER ==
[2021-09-18 14:02] LABS: BASOPHILS % (AUTO) 0.2 %; EOSINOPHILS # (AUTO) 0.2 10^3/uL (0.0-0.7); EOSINOPHILS % (AUTO) 1.3 %; HCT - HEMATOCRIT 38.7 % (37.0-47.0); HGB - HEMOGLOBIN 12.6 g/dL (12.0-16.0); LYMPHOCYTES # (AUTO) 0.5 10^3/uL (1.5-3.5); LYMPHOCYTES % (AUTO) 3.4 %; MEAN CORPUSCULAR HEMOGLOBIN 30.8 pg (27.0-31.0); MEAN CORPUSCULAR HGB CONC 32.6 g/dL (32.0-36.0); MEAN CORPUSCULAR VOLUME 94.6 fL (81.0-99.0); MEAN PLATELET VOLUME 9.2 fL (7.9-10.8); MONOCYTES # (AUTO) 1.1 10^3/uL (0.0-1.0); MONOCYTES % (AUTO) 6.8 %; NEUTROPHILS # (AUTO) 13.5 10^3/uL (1.5-6.6); NEUTROPHILS % (AUTO) 87.7 %; PLT - PLATELET COUNT 279 10^3/uL (130-450); RED BLOOD COUNT 4.09 10^6/uL (4.20-5.40); RED CELL DISTRIBUTION WIDTH 12.9 % (12.0-15.0); WHITE BLOOD COUNT 15.4 x10^3/uL (4.8-10.8)
[2021-09-18 14:36] LABS: ALBUMIN 3.6 g/dL (3.2-5.5); ALBUMIN/GLOBULIN RATIO 1.1 (1.0-2.2); BILIRUBIN,TOTAL 0.9 mg/dL (0.2-1.0); CALCIUM 8.8 mg/dL (8.5-10.3); CREATININE 0.8 mg/dL (0.4-1.0); POTASSIUM 4.4 mmol/L (3.5-5.0)
[2021-09-18 15:04] VITALS: BP 215/95
[2021-09-18 15:15] LABS: BILIRUBIN,URINE NEGATIVE (NEGATIVE); GLUCOSE, URINE (UA) NEGATIVE (NEGATIVE); KETONES,URINE (UA) NEGATIVE (NEGATIVE); LEUKOCYTE ESTERASE, URINE NEGATIVE (NEGATIVE); NITRITE,URINE NEGATIVE (NEGATIVE); OCCULT BLOOD,URINE NEGATIVE (NEGATIVE); PROTEIN,URINE NEGATIVE (NEGATIVE); UROBILINOGEN,URINE 0.2 (NORMAL) E.U./dL (NORMAL)
[2021-09-18 15:18] LABS: CLARITY,URINE CLEAR (CLEAR)
[2021-09-18] MEDS ORDERED: KETOROLAC 60 MG/2 ML VIAL IM STA (15:48)
--- NOTE | 2021-09-18 16:05 | ED Physician Documentation ---
PD HPI BACK PAIN - Stated complaint Stated Complaint: LOWER BACK PX - Chief complaint Chief Complaint: Abd Pain - History obtained from History obtained from: Patient - History of Present Illness Timing - onset: Chronic Timing - duration: Years Timing - details: Gradual onset Location: Lower, Right Quality: Pain, Similar to prior episodes Associated symptoms: No: Fever, Weakness, Numbness, Incontinent of urine, Unable to urinate, Hematuria, Incontinent of stool Improves with: Rest Worsened by: Movement Recently seen: Not recently seen - Additional information Additional information: Patient is an 86-year-old female who presents to the emergency department with chronic back pain. Has been ongoing for several years. She states that she had been on pain medication at home but she violated her pain contract by receiving narcotics from another provider and not informing her primary care provider. She states that the pain is worse with movement, better with rest. Has not taken anything for the pain today. She states she is awaiting a cortisone shot in her back. Review of Systems Ten Systems: 10 systems reviewed and negative Constitutional: denies: Fever, Chills Ears: denies: Ear pain Nose: denies: Rhinorrhea / runny nose, Congestion Cardiac: denies: Chest pain / pressure, Palpitations Respiratory: denies: Dyspnea, Cough GI: denies: Abdominal Pain, Nausea, Vomiting, Diarrhea : denies: Dysuria, Frequency, Hesitancy Musculoskeletal: denies: Neck pain Neurologic: denies: Focal weakness, Numbness PD PAST MEDICAL HISTORY - Past Medical History Cardiovascular: Hypertension, High cholesterol, Coronary artery disease, [place], Other Respiratory: COPD, Emphysema Neuro: None Endocrine/Autoimmune: Type 2 diabetes GI: None : None HEENT: Chronic vision loss, Macular degeneration Psych: None Musculoskeletal: Chronic back pain Derm: None - Past Surgical History Past Surgical History: Yes 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 Cardiovascular: Coronary stent HEENT: Cataracts - Present Medications Home Medications: Ambulatory Orders Medication Instructions Recorded Confirmed Lisinopril 10 mg PO BID 03/25/14 09/13/21 Simvastatin 40 mg PO QPM 03/25/14 09/13/21 Aspirin [Aspir 81] 81 mg PO DAILY 08/01/14 09/13/21 Metformin HCl 500 mg PO BID 08/01/14 09/13/21 Cholecalciferol (Vitamin D3) 1,000 unit PO DAILY 01/27/16 09/13/21 [Vitamin D3] Calcium Carbonate/Vitamin D3 2 tab PO DAILY 04/20/19 09/13/21 [Calcium 600-Vit D3 400 Tablet] Metoprolol Tartrate 25 mg PO BID 05/05/19 09/13/21 Hydrocodone/Acetaminophen 1 tab PO DAILY PRN 05/12/19 09/13/21 [Hydrocodone-Acetamin 5-325 mg] [place]-3S/Dha/Epa/Fish Oil [[place]-3 1 cap PO DAILY 05/12/19 09/13/21 Fish Oil 1,200 mg Sfgl] Albuterol Sulfate [Proair 90 mcg IH Q8H PRN 30 Days #1 06/14/21 09/13/21 Respiclick] inhaler Meloxicam [Mobic] 7.5 mg PO BID PRN #20 tablet 09/18/21 - Allergies Allergies/Adverse Reactions: Allergies Allergy/AdvReac Type Severity Reaction Status Date / Time lidocaine Allergy Unknown Verified 09/18/21 13:04 - Social History Does the pt smoke?: No Smoking Status: Never smoker Does the pt drink ETOH?: No Does the pt have substance abuse?: No - Immunizations Immunizations are current?: Yes - POLST Patient has POLST: No POLST Status: Full Code PD ED PE NORMAL - Vitals Vital signs reviewed: Yes - General General: Alert and oriented X 3, No acute distress - HEENT HEENT: PERRL, Moist mucous membranes - Neck Neck: Supple, no meningeal sign - Cardiac Cardiac: RRR, Strong equal pulses - Respiratory Respiratory: No respiratory distress, Clear bilaterally - Abdomen Abdomen: Soft, Non tender, Non distended - Back Back: No spinal TTP, Other (No midline tenderness palpation or percussion. No step-off or deformity.) - Derm Derm: Warm and dry - Extremities Extremities: Other (Normal bilateral lower extremity patellar and ankle jerk reflexes. Normal great toe extension bilaterally. no saddle anesthesia) - Neuro Neuro: Alert and oriented X 3, fern cutter 2-12 intact, No motor deficit, No sensory deficit, Normal speech - Psych Psych: Normal mood, Normal affect Results - Vitals Vitals: Vital Signs - 24 hr 09/18/21 09/18/21 13:02 15:03 Temperature 36.4 C L 36.1 C L Heart Rate 95 78 Respiratory 16 18 Rate Blood Pressure 150/83 H 215/95 H O2 Saturation 98 97 Oxygen O2 Source Room air - Labs Labs: Laboratory Tests 09/18/21 09/18/21 09/18/21 13:55 13:55 14:26 WBC 15.4 H RBC 4.09 L Hgb 12.6 Hct 38.7 MCV 94.6 MCH 30.8 MCHC 32.6 RDW 12.9 Plt Count 279 MPV 9.2 Neut # (Auto) 13.5 H Lymph # (Auto) 0.5 L Swisher # (Auto) 1.1 H Eos # (Auto) 0.2 Baso # (Auto) 0.0 Absolute Nucleated RBC 0.00 Nucleated RBC % 0.0 Sodium 137 Potassium 4.4 Chloride 101 Carbon Dioxide 26 Anion Gap 10.0 BUN 19 Creatinine 0.8 Estimated GFR (MDRD) 68 L Glucose 168 H Calcium 8.8 Total Bilirubin 0.9 AST 12 ALT 11 Alkaline Phosphatase 86 Total Protein 7.0 Albumin 3.6 Globulin 3.4 Albumin/Globulin Ratio 1.1 Lipase 27 Urine Color YELLOW Urine Clarity CLEAR Urine pH 6.0 Ur Specific [place] 1.025 Urine Protein NEGATIVE Urine Glucose (UA) NEGATIVE Urine Ketones NEGATIVE Urine Occult Blood NEGATIVE Urine Nitrite NEGATIVE Urine Bilirubin NEGATIVE Urine Urobilinogen 0.2 (NORMAL) Ur Leukocyte Esterase NEGATIVE Ur Microscopic Review NOT INDICATED Urine Culture Comments NOT INDICATED PD MEDICAL DECISION MAKING - ED course Complexity details: reviewed results, re-evaluated patient, considered differential (No cauda equina, no spinal epidural abscess, no fracture, no aortic dissection or evidence of aneursym rupture), d/w patient ED course: 86-year-old female with her chronic back pain. No changes from her baseline. She apparently violated her pain contract with her doctor and has been cut off from narcotic pain medication. I will not prescribe narcotic pain medication here in accordance with this. Patient was given Toradol and feels better. Ambulating without any difficulty. We will have her follow-up with her doctor for further care. No indication for imaging or other emergent tests at this time. Patient counseled regarding signs and symptoms for which I believe and urgent re-evaluation would be necessary. Patient with good understanding of and agreement to plan and is comfortable going home at this time This document was made in part using voice recognition software. While efforts are made to proofread this document, sound alike and grammatical errors may occur. Departure - Departure Disposition: Home, Self Care Clinical Impression: Back pain with sciatica Condition: Good Instructions: ED Back Care Tips Follow-Up: Your,doctor in 1 week [Other] Prescriptions: Meloxicam [Mobic] 7.5 mg PO BID PRN #20 tablet PRN Reason: Pain Comments: Please follow-up with your doctor for further care. Return if you worsen. Your prescription was sent to [facility] in [place]. Discharge Date/Time: 09/18/21 16:27
== END 2021-09-18 16:27 | disposition home or self-care (01) ==
LOC: ED 12:50
DX: M54.40 Lumbago with sciatica, unspecified side (principal); G89.29 Other chronic pain
CPT/HCPCS: 36415; 80053; 81001; 81003; 83690; 85025; 87086; 96372; 99283; 99284

== ENCOUNTER 2021-09-20 17:03 | Emergency (ER) | payer MEDICARE, OTHER ==
[2021-09-20 17:12] VITALS: BP 160/78
--- NOTE | 2021-09-20 17:24 | ED Physician Documentation ---
History of Present Illness - Stated complaint Stated Complaint: BACK PX - Chief complaint Chief Complaint: Back Pain - History obtained from History obtained from: Patient - Additonal information Additional information: This is a chuck 86-year-old woman with longstanding sciatica. She had been in pain management with Dr. Troy for this and getting hydrocodone prescriptions. A few weeks or maybe a month ago she was excused from her pain management contract because she had gotten a prescription for oxycodone from her dentist after having several teeth removed and this was in violation of her pain management contract. Her sciatica is out of control with severe low back pain with pain radiating into the right leg. She was originally diagnosed with this 10 years ago and offered surgery at the time which she declined opting for physical therapy and conservative measures. She denies weakness, numbness, tingling, saddle anesthesia, or fevers. 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 Cardiovascular: Coronary stent HEENT: Cataracts - Present Medications Home Medications: Ambulatory Orders Medication Instructions Recorded Confirmed Lisinopril 10 mg PO BID 03/25/14 09/13/21 Simvastatin 40 mg PO QPM 03/25/14 09/13/21 Aspirin [Aspir 81] 81 mg PO DAILY 08/01/14 09/13/21 Metformin HCl 500 mg PO BID 08/01/14 09/13/21 Cholecalciferol (Vitamin D3) 1,000 unit PO DAILY 01/27/16 09/13/21 [Vitamin D3] Calcium Carbonate/Vitamin D3 2 tab PO DAILY 04/20/19 09/13/21 [Calcium 600-Vit D3 400 Tablet] Metoprolol Tartrate 25 mg PO BID 05/05/19 09/13/21 Hydrocodone/Acetaminophen 1 tab PO DAILY PRN 05/12/19 09/13/21 [Hydrocodone-Acetamin 5-325 mg] [place]-3S/Dha/Epa/Fish Oil [[place]-3 1 cap PO DAILY 05/12/19 09/13/21 Fish Oil 1,200 mg Sfgl] Albuterol Sulfate [Proair 90 mcg IH Q8H PRN 30 Days #1 06/14/21 09/13/21 Respiclick] inhaler Meloxicam [Mobic] 7.5 mg PO BID PRN #20 tablet 09/18/21 HYDROcod/ACETAM 5/325 [[place] 5/325] 1 - 2 tab PO Q6H PRN #10 tablet 09/20/21 - Allergies Allergies/Adverse Reactions: Allergies Allergy/AdvReac Type Severity Reaction Status Date / Time lidocaine Allergy Unknown Verified 09/20/21 17:12 - Social History Does the pt smoke?: No Smoking Status: Never smoker Does the pt drink ETOH?: No Does the pt have substance abuse?: No - Immunizations Immunizations are current?: Yes - POLST Patient has POLST: No POLST Status: Full Code PD ED PE NORMAL - Vitals Vital signs reviewed: Yes - General General: Alert and oriented X 3, No acute distress - Neuro Neuro: Alert and oriented X 3, Normal speech - Psych Psych: Normal mood, Normal affect Results - Vitals Vitals: Vital Signs - 24 hr 09/20/21 17:07 Temperature 36.8 C Heart Rate 99 Respiratory 16 Rate Blood Pressure 160/78 H O2 Saturation 98 Oxygen O2 Source Room air PD MEDICAL DECISION MAKING - ED course ED course: This is a chuck 86-year-old woman with history of chronic back pain and sciatica who presents with pain out of control and was recently excused by her primary care physician for breaking her pain contract by receiving a prescription for narcotics from a dentist. Patient states she really just had poor understanding of the process and now her pain is out of control. Given her age, I have a low suspicion for drug abuse and I did speak with Dr. Troy who authorized a refill of 10 hydrocodone but with the understanding that no more narcotics would be forthcoming either from this emergency department nor from their office. Departure - Departure Disposition: 01 Home, Self Care Clinical Impression: Acute exacerbation of chronic low back pain Condition: Good Record reviewed to determine appropriate education?: Yes Instructions: ED Neck Back Pain General Follow-Up: [facility] [Provider Group] Prescriptions: HYDROcod/ACETAM 5/325 [Bradley 5/325] 1 - 2 tab PO Q6H PRN #10 tablet PRN Reason: Pain Comments: I sent your prescription electronically to [facility] in [place]. As discussed, Dr. Troy does not plan on giving you more narcotic pain medication going forward and disclose that no one else in her office would likely do this either. I am putting the number for another clinic in [place] that may be able to take over your pain management needs. This emergency department will not refill narcotics going forward either. I am prescribing a short course of narcotic pain medication for you. These are potentially dangerous and addictive medications that should be used carefully. These medications may constipate you. Take an [id number] stool softener (docusate) twice daily with plenty of water while taking these medications. If you go 24 hours without a bowel movement, take [id number] miralax, per package instructions. Do not drink or drive while taking these medications. If you received narcotic or sedating medications while in the emergency department, do not drive for 24 hours. Store this medication in a safe, secure place and out of reach of children. It is a violation of federal law to give or sell this medication to another person or to use in a manner other than prescribed. The ED will not refill narcotic prescriptions, including prescriptions lost or stolen. To dispose of unwanted medications: 1. [facility] [address] [facility] in [place] has a medication drop box. They accept prescription medications (in pill form) Saturday through Saturday 9:00 a.m. to 5:00 p.m. 2. [facility] [employer] accepts prescription medications (in pill form only) for disposal year round. Call for more information. 3. Contact the [facility] for the next [facility] sponsored prescription drug collection event. , [phone], or [phone]; Note that many narcotic pain relievers also contain Tylenol/acetaminophen. Please ensure that your total dose of acetaminophen from all sources does not exceed 3 g (3000 mg) per day.
[2021-09-20] MEDS ORDERED: HYDROmorphone 1 MG/ML CARPUJECT IM STA (17:25)
== END 2021-09-20 18:03 | disposition home or self-care (01) ==
LOC: ED 17:03
DX: M54.40 Lumbago with sciatica, unspecified side (principal); G89.29 Other chronic pain; E11.36 Type 2 diabetes mellitus with diabetic cataract; H26.40 Unspecified secondary cataract; Z79.84 Long term (current) use of oral hypoglycemic drugs; I10 Essential (primary) hypertension
CPT/HCPCS: 96372; 99283; J1170

== ENCOUNTER 2021-09-21 17:48 | Emergency (ER) | payer MEDICARE, OTHER ==
--- NOTE | 2021-09-21 17:59 | ED Physician Documentation ---
History of Present Illness - Stated complaint Stated Complaint: LOWER BACK PAIN - Additonal information Additional information: 86-year-old female return to the emergency department for evaluation of low back pain. Third ED visit in 2 days for similar. She recently was found to have violated her pain contract so her primary care provider is unable to give her the narcotics she was getting. Seen here yesterday did receive A prescription for hydrocodone. Patient knows that we cannot prescribe more narcotics through the ER but she is wondering if we could maybe give her a cortisone shot for her back pain. Recent CT imaging of the chest abdomen pelvis and follow-up of her known lung cancer does show a chronic T9 compression deformity. She denies any saddle anesthesia. Typically walks with a walker. No new falls or trauma. She is scheduled to see Dr. Troy tomorrow Review of Systems Constitutional: denies: Fever, Chills Nose: reports: Reviewed and negative Throat: reports: Reviewed and negative Cardiac: reports: Reviewed and negative Respiratory: reports: Reviewed and negative GI: reports: Reviewed and negative : reports: Reviewed and negative Skin: denies: Rash, Lesions Musculoskeletal: reports: Back pain PD PAST MEDICAL HISTORY - Past Medical History Cardiovascular: Hypertension, High cholesterol, Coronary artery disease, [place], Other Respiratory: COPD, Emphysema Neuro: None Endocrine/Autoimmune: Type 2 diabetes GI: None : None HEENT: Chronic vision loss, Macular degeneration Psych: None Musculoskeletal: Chronic back pain Derm: None - Past Surgical History Past Surgical History: Yes 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 Cardiovascular: Coronary stent HEENT: Cataracts - Present Medications Home Medications: Ambulatory Orders Medication Instructions Recorded Confirmed Lisinopril 10 mg PO BID 03/25/14 09/13/21 Simvastatin 40 mg PO QPM 03/25/14 09/13/21 Aspirin [Aspir 81] 81 mg PO DAILY 08/01/14 09/13/21 Metformin HCl 500 mg PO BID 08/01/14 09/13/21 Cholecalciferol (Vitamin D3) 1,000 unit PO DAILY 01/27/16 09/13/21 [Vitamin D3] Calcium Carbonate/Vitamin D3 2 tab PO DAILY 04/20/19 09/13/21 [Calcium 600-Vit D3 400 Tablet] Metoprolol Tartrate 25 mg PO BID 05/05/19 09/13/21 Hydrocodone/Acetaminophen 1 tab PO DAILY PRN 11/05/19 03/09/22 [Hydrocodone-Acetamin 5-325 mg] [place]-3S/Dha/Epa/Fish Oil [[place]-3 1 cap PO DAILY 05/12/19 09/13/21 Fish Oil 1,200 mg Sfgl] Albuterol Sulfate [Proair 90 mcg IH Q8H PRN 30 Days #1 06/14/21 09/13/21 Respiclick] inhaler Meloxicam [Mobic] 7.5 mg PO BID PRN #20 tablet 09/18/21 HYDROcod/ACETAM 5/325 [[place] 5/325] 1 - 2 tab PO Q6H PRN #10 tablet 09/20/21 - Allergies Allergies/Adverse Reactions: Allergies Allergy/AdvReac Type Severity Reaction Status Date / Time No Known Drug Allergies Allergy Verified 09/21/21 18:07 - Social History Does the pt smoke?: No Smoking Status: Never smoker Does the pt drink ETOH?: No Does the pt have substance abuse?: No - Immunizations Immunizations are current?: Yes - POLST Patient has POLST: No POLST Status: Full Code PD ED PE EXPANDED - General General: Alert, No acute distress, Other (Thin elderly female appearance) - Cardiac Cardiac: Regular Rate, Radial strong equal, Pedal strong equal, Cap refill < 2 sec - Respiratory Respiratory: Clear to ausultation noman. No: Distress, Labored - Abdomen Abdomen: Normal Bowel sounds. No: Tender to palpation - Back Back: Other (No midline lumbar tenderness elicited. Patient reports pain in both of her buttocks. No sores or lesions. She has a gait which is unchanged from previous in conversation with our ER techs.) - Neuro Neuro: Alert and Oriented X 3, CNII-XII intact - GCS Eye Opening: Spontaneous Motor: Obeys Commands Verbal: Oriented Total: 15 Results - Vitals Vitals: Vital Signs - 24 hr 09/21/21 18:01 Temperature 36.3 C L Heart Rate 73 Respiratory 14 Rate Blood Pressure 148/65 H O2 Saturation 98 Oxygen O2 Source Room air PD MEDICAL DECISION MAKING - ED course Complexity details: reviewed results, re-evaluated patient, d/w patient, d/w family, other ED course: 86-year-old female return to the ER for evaluation of low back pain with radiation to both her buttocks. Recently found to be in violation of her pain contract and was no longer able to get her oxycodone filled. She did receive a prescription for hydrocodone through the ER yesterday though she does not feel that this is helpful. CT chest, abd/pelvis 09/06/2021 In follow-up of known lung cancer demonstrated a severe T9 wedge compression fracture but unchanged from previous. No suspicious bony lesions or mets were seen in the lumbar spine. Patient would not benefit from repeat CT imaging today given recent CT scans that were completed. Despite her advanced age she is ambulatory with minimal assistance. I did do a thorough evaluation of her lower back and buttock. No skin breakdown rashes or findings of pressure ulcer were seen. She is scheduled to see Dr. Troy in follow-up tomorrow. Will defer any further analgesia tod ay. Patient was notified that she may benefit from referral to pain management clinic. Emergent return precautions otherwise discussed Departure - Departure Disposition: 01 Home, Self Care Clinical Impression: Low back pain Qualifiers: Chronicity: chronic Back pain laterality: bilateral Sciatica presence: without sciatica Qualified Code(s): M54.50 - Low back pain, unspecified; G89.29 - Other chronic pain Follow-Up: Magdi Troy DO [Primary Care Provider] - Comments: Kirsten unfortunately the emergency department cannot do anything further today to address your chronic low back pain. Dr. Troy tomorrow may be able to make a referral for you to a pain management clinic or referral for the cortisone injection that you desire.
[2021-09-21 18:06] VITALS: BP 148/65
[2021-09-21] MEDS ORDERED: KETOROLAC 30 MG/ML VIAL IM STA (19:11)
== END 2021-09-21 19:43 | disposition home or self-care (01) ==
LOC: ED 17:48
DX: M48.54XA Collapsed vertebra, not elsewhere classified, thoracic region, initial encounter for fracture (principal); G89.29 Other chronic pain; I10 Essential (primary) hypertension; E11.36 Type 2 diabetes mellitus with diabetic cataract; H26.9 Unspecified cataract; Z79.84 Long term (current) use of oral hypoglycemic drugs
CPT/HCPCS: 96372; 99282; 99283

== ENCOUNTER 2021-09-22 09:58 | Emergency (ER) | payer MEDICARE, OTHER ==
--- NOTE | 2021-09-22 12:53 | ED Physician Documentation ---
PD HPI BACK PAIN - Stated complaint Stated Complaint: BACK PX - Chief complaint Chief Complaint: Back Pain - History obtained from History obtained from: Patient - History of Present Illness Timing - onset: How many weeks ago (1) Timing - duration: Weeks (1) Timing - details: Gradual onset, Still present Location: Lower, Left Quality: Pain, Spasm, Sharp, Similar to prior episodes Associated symptoms: No: Fever, Weakness, Numbness, Incontinent of urine, Unable to urinate, Hematuria, Incontinent of stool Improves with: Rest, Position, Meds Worsened by: Movement Contributing factors: Lifting, Twisting Similar symptoms before: Diagnosis (siatica and chronic low back pain s/p vertebral compression fx.) Recently seen: Emergency Dept - Additional information Additional information: 86-year-old female with 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 She has chronic lumbar pain. Her pain is worse than usual she has had recent imaging procedures which did not demonstrate any new findings of concern related to her cancer. She has had a recent PET scan. This is her 4th visit to the ED in 5 days for back pain. Her PMD has discontinued her pain management when she began getting pain medication from the dentist. Review of Systems Constitutional: denies: Fever Nose: denies: Congestion Throat: denies: Sore throat Cardiac: denies: Chest pain / pressure Respiratory: denies: Dyspnea, Cough GI: denies: Vomiting Musculoskeletal: reports: Back pain, Extremity pain. 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 Cardiovascular: Coronary stent HEENT: Cataracts - Present Medications Home Medications: Ambulatory Orders Medication Instructions Recorded Confirmed Lisinopril 10 mg PO BID 03/25/14 09/13/21 Simvastatin 40 mg PO QPM 03/25/14 09/13/21 Aspirin [Aspir 81] 81 mg PO DAILY 08/01/14 09/13/21 Metformin HCl 500 mg PO BID 08/01/14 09/13/21 Cholecalciferol (Vitamin D3) 1,000 unit PO DAILY 01/27/16 09/13/21 [Vitamin D3] Calcium Carbonate/Vitamin D3 2 tab PO DAILY 04/20/19 09/13/21 [Calcium 600-Vit D3 400 Tablet] Metoprolol Tartrate 25 mg PO BID 05/05/19 09/13/21 Hydrocodone/Acetaminophen 1 tab PO DAILY PRN 05/12/19 09/13/21 [Hydrocodone-Acetamin 5-325 mg] [place]-3S/Dha/Epa/Fish Oil [[place]-3 1 cap PO DAILY 05/12/19 09/13/21 Fish Oil 1,200 mg Sfgl] Albuterol Sulfate [Proair 90 mcg IH Q8H PRN 30 Days #1 06/14/21 09/13/21 Respiclick] inhaler Meloxicam [Mobic] 7.5 mg PO BID PRN #20 tablet 09/18/21 HYDROcod/ACETAM 5/325 [[place] 5/325] 1 - 2 tab PO Q6H PRN #10 tablet 09/20/21 Oxycodone HCl/Acetaminophen 1 - 2 each PO Q6H PRN #14 tablet 09/22/21 [Percocet 5-325 mg Tablet] - Allergies Allergies/Adverse Reactions: Allergies Allergy/AdvReac Type Severity Reaction Status Date / Time No Known Drug Allergies Allergy Verified 09/22/21 10:32 - Social History Does the pt smoke?: No Smoking Status: Never smoker Does the pt drink ETOH?: No Does the pt have substance abuse?: No - Immunizations Immunizations are current?: Yes - POLST Patient has POLST: No POLST Status: Full Code PD ED PE NORMAL - Vitals Vital signs reviewed: Yes (hypertensive ) - General General: Alert and oriented X 3, Well developed/nourished, Other (winching in pain periodically with spasm of the LLE. Thin elderly female appears to be in pain. ) - HEENT HEENT: Atraumatic, PERRL - Respiratory Respiratory: No respiratory distress - Back Back: No CVA TTP, Other (no midline point tenderness to the lumbar spine. + tender to paraspinous muscles LL lumbar. ) - Derm Derm: Normal color, Warm and dry, No rash - Extremities Extremities: No deformity, No edema - Neuro Neuro: Alert and oriented X 3, appointment manager 2-12 intact, No motor deficit, No sensory deficit, Normal speech Eye Opening: Spontaneous Motor: Obeys Commands Verbal: Oriented GCS Score: 15 - Psych Psych: Other (mood is painful and affect is flat) Results - Vitals Vitals: Vital Signs - 24 hr 09/22/21 09/22/21 09/22/21 10:27 13:33 15:25 Temperature 36.4 C L Heart Rate 93 81 79 Respiratory 18 18 Rate Blood Pressure 151/90 H 149/88 H 145/71 H O2 Saturation 96 96 98 Oxygen O2 Source Room air PD MEDICAL DECISION MAKING - ED course Complexity details: reviewed old records, re-evaluated patient, considered differential, d/w patient ED course: 86-year-old female with chronic low back pain presents to the emergency department with back pain and spasming to the left leg and she has been cut off of her narcotics by her primary care doctor. She is expressing his desire for a hydrocortisone shot in her back. She does have an appointment set up to see the pain clinic on the of this month. She has significant pain today and today we have administered dexamethasone 10 mg IM and she initially refused Toradol but when she continued to have significant pain. She got no relief from the shot, which she was told she would not. She eventually accepted the Toradol and had minimal improvement. I reviewed the patient's narcotic profile and it appears that she was given 180 oxycodone in February of this year and she began to get scripts from her dentist in April. She had been getting 18 pills at a time about once per month. To me this looks like she had already decreased her dose or her use of narcotic considerably. She gives me detail that her pain now is out of control and it has been for the past week. I contacted the on-call for Judith Gallardo and she authorized a short-term prescription for oxycodone to last until Saturday. She is prescribed 14 pills. She is given a dose of Dilaudid here in the emergency department which does give her some relief of her pain. Departure - Departure Disposition: Home, Self Care Clinical Impression: Acute exacerbation of chronic low back pain Condition: Stable Instructions: ED Sciatica Follow-Up: Magdi Troy DO [Primary Care Provider] - Prescriptions: Oxycodone HCl/Acetaminophen [Percocet 5-325 mg Tablet] 1 - 2 each PO Q6H PRN #14 tablet PRN Reason: pain Comments: Kirsten today it looks like you have bad sciatica and the medication we have given you the dexamethasone will take the rest of the day to be effective. It is unlikely that you are can get complete relief with the use of the dexamethasone alone. You will likely need to have the epidural steroid injection that has been scheduled for September 28. In the meantime I have talked to the PA on-call for your doctor and she has authorized us to give you a limited supply of pain medication until you can be seen in their clinic on Saturday.Medications have been E scribed to [facility] Bruner in [place]. Discharge Date/Time: 09/22/21 15:25
[2021-09-22] MEDS ORDERED: DEXAMETHASONE 10 MG/ML VIAL IM STA (13:00)
[2021-09-22] MEDS ORDERED: KETOROLAC 60 MG/2 ML VIAL IM STA (13:49)
[2021-09-22] MEDS ORDERED: ONDANSETRON ODT 4 MG TABLET TL STA (15:02)
[2021-09-22] MEDS ORDERED: HYDROmorphone 1 MG/ML CARPUJECT IM STA (15:02)
[2021-09-22 15:28] VITALS: BP 145/71
== END 2021-09-22 15:25 | disposition home or self-care (01) ==
LOC: ED 09:58
DX: M54.50 Low back pain, unspecified (principal); G89.29 Other chronic pain; I10 Essential (primary) hypertension; E11.9 Type 2 diabetes mellitus without complications; Z79.84 Long term (current) use of oral hypoglycemic drugs
CPT/HCPCS: 96372; 99282; 99283; J1170; Q0162

== ENCOUNTER 2021-09-23 18:59 | Outpatient (CLI) | payer MEDICARE, OTHER | END 2021-09-23 19:00 | disposition critical access hospital (66) | LOC: EMS 18:59 | DX: M54.50 Low back pain, unspecified (principal); M79.605 Pain in left leg | CPT/HCPCS: A0425; A0429 ==

== ENCOUNTER 2021-09-23 19:27 | Observation (INO) | payer MEDICARE, OTHER ==
[2021-09-23] MEDS ORDERED: SODIUM CHLORIDE 0.9% 1,000 ML IV STA ×2 (19:41→23:49)
[2021-09-23 19:59] LABS: BASOPHILS % (AUTO) 0.1 %; HCT - HEMATOCRIT 32.6 % (37.0-47.0); LYMPHOCYTES # (AUTO) 0.6 10^3/uL (1.5-3.5); LYMPHOCYTES % (AUTO) 3.5 %; MEAN CORPUSCULAR HEMOGLOBIN 31.3 pg (27.0-31.0); MEAN CORPUSCULAR HGB CONC 33.7 g/dL (32.0-36.0); MEAN CORPUSCULAR VOLUME 92.9 fL (81.0-99.0); MEAN PLATELET VOLUME 9.5 fL (7.9-10.8); MONOCYTES # (AUTO) 1.1 10^3/uL (0.0-1.0); MONOCYTES % (AUTO) 6.6 %; NEUTROPHILS # (AUTO) 14.6 10^3/uL (1.5-6.6); NEUTROPHILS % (AUTO) 89.4 %; PLT - PLATELET COUNT 267 10^3/uL (130-450); RED BLOOD COUNT 3.51 10^6/uL (4.20-5.40); RED CELL DISTRIBUTION WIDTH 13.1 % (12.0-15.0); WHITE BLOOD COUNT 16.3 x10^3/uL (4.8-10.8)
[2021-09-23 20:12] LABS: ALBUMIN 3.1 g/dL (3.2-5.5); BILIRUBIN,TOTAL 1.1 mg/dL (0.2-1.0); CALCIUM 8.6 mg/dL (8.5-10.3); CREATININE 1.4 mg/dL (0.4-1.0); POTASSIUM 3.9 mmol/L (3.5-5.0); TOTAL PROTEIN 6.3 g/dL (6.7-8.2)
--- NOTE | 2021-09-23 20:38 | ED Physician Documentation ---
PD HPI BACK PAIN - Stated complaint Stated Complaint: SCIATIC PAIN, FOUND ON FLOOR - Chief complaint Chief Complaint: Back Pain - History obtained from History obtained from: Patient, Family, EMS - History of Present Illness Timing - onset: How many months ago (2) Timing - duration: Months (2) Timing - details: Gradual onset, Still present Pain level max: 10 Pain level now: 10 Location: Lower, Left Quality: Pain, Spasm, Sharp, Similar to prior episodes Associated symptoms: Other (cant stand up and walk). No: Fever, Weakness, Numbness, Incontinent of urine, Unable to urinate, Hematuria, Incontinent of stool Improves with: Rest, Position, Meds Worsened by: Movement Contributing factors: Other (lives alone sleeping in an easy chair) Similar symptoms before: Diagnosis (sciatica) Recently seen: Clinic, Emergency Dept - Additional information Additional information: 86-year-old female with a history of sciatica and chronic back pain who has been on narcotic pain management has had a falling out with her doctor and when she was receiving narcotics from her dentist she has been cut off of her narcotics. The patient has increased pain and has presented to the emergency department multiple times over the past week. She has been given some pain medications even yesterday along with some decadron. She is scheduled to get an epidural steroid injection on September 28. She describes sleeping in an easy chair with her legs propped up on her walker. She is not able to get up and walk. Her family is taking care of her in her home and she lives alone. Today she ended up on the ground trying to get to her phone to call for help. She is not able to get water for herself and her family has provided water but she has not consumed. The patient has a history of non-small small cell lung cancer that is in remission. She has had a recent CT scan of her abdomen and pelvis and a recent PET scan as well none of this is demonstrated a problem with metastases to the bone. Her last imaging was on 06 September. I was able to get a pill count from the son. He indicates that on September 14 the patient was prescribed 18 pills oxy/apap there are 3 pills left in that bottle. On the she was prescribed 10 pills of hydrocodone there are 2 left in that bottle and yesterday she was prescribed 14 oxycodone/apap there are 10 left in that bottle. She is taken a total of 25 pills over the past 10 days. Review of Systems Constitutional: denies: Fever Eyes: denies: Decreased vision Ears: denies: Ear pain Nose: denies: Congestion Throat: denies: Sore throat Cardiac: denies: Palpitations Respiratory: denies: Dyspnea, Cough GI: denies: Abdominal Pain, Nausea, Vomiting, Constipation, Diarrhea : denies: Dysuria, Frequency Skin: denies: Rash Musculoskeletal: reports: Back pain, Extremity pain. denies: Neck pain Neurologic: reports: Generalized weakness. 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 Cardiovascular: Coronary stent HEENT: Cataracts - Present Medications Home Medications: Ambulatory Orders Medication Instructions Recorded Confirmed Lisinopril 10 mg PO BID 03/25/14 09/23/21 Simvastatin 40 mg PO QPM 03/25/14 09/23/21 Metformin HCl 500 mg PO BID 08/01/14 09/23/21 Cholecalciferol (Vitamin D3) 1,000 unit PO DAILY 01/27/16 09/23/21 [Vitamin D3] Calcium Carbonate/Vitamin D3 2 tab PO DAILY 04/20/19 09/23/21 [Calcium 600-Vit D3 400 Tablet] Metoprolol Tartrate 25 mg PO BID 05/05/19 09/23/21 Hydrocodone/Acetaminophen 1 tab PO DAILY PRN 05/12/19 09/23/21 [Hydrocodone-Acetamin 5-325 mg] Albuterol Sulfate [Proair 90 mcg IH Q8H PRN 30 Days #1 06/14/21 09/13/21 Respiclick] inhaler Meloxicam [Mobic] 7.5 mg PO BID PRN #20 tablet 09/18/21 09/23/21 HYDROcod/ACETAM 5/325 [[place] 5/325] 1 - 2 tab PO Q6H PRN #10 tablet 09/20/21 09/23/21 Oxycodone HCl/Acetaminophen 1 - 2 each PO Q6H PRN #14 tablet 09/22/21 09/23/21 [Percocet 5-325 mg Tablet] Amoxicillin 500 mg PO TID 09/23/21 09/23/21 Pregabalin [Lyrica] 25 mg PO BID 09/23/21 09/23/21 - Allergies Allergies/Adverse Reactions: Allergies Allergy/AdvReac Type Severity Reaction Status Date / Time No Known Drug Allergies Allergy Verified 09/23/21 19:33 - Social History Does the pt smoke?: No Smoking Status: Never smoker Does the pt drink ETOH?: No Does the pt have substance abuse?: No - Immunizations Immunizations are current?: Yes - POLST Patient has POLST: No POLST Status: Full Code PD ED PE NORMAL - Vitals Vital signs reviewed: Yes (hypertensive ) - General General: Alert and oriented X 3, Other (talking a lot and when distracted does not appear to be in pain. Thin elderly female with parche lips) - HEENT HEENT: Atraumatic, PERRL, EOMI, Other (parched mucous membranes) - Neck Neck: Supple, no meningeal sign, No bony TTP - Cardiac Cardiac: RRR, No murmur - Respiratory Respiratory: No respiratory distress, Other (bibasilar rhonchi) - Abdomen Abdomen: Soft, Non tender - Back Back: No CVA TTP, No spinal TTP - Derm Derm: Normal color, Warm and dry, No rash - Extremities Extremities: No deformity, No edema, Other (The left leg is wrapped in an ELISEO the thigh and the calf -- for comfort) - Neuro Neuro: Alert and oriented X 3, access coordinator 2-12 intact, No motor deficit, No sensory deficit, Normal speech Eye Opening: Spontaneous Motor: Obeys Commands Verbal: Oriented GCS Score: 15 - Psych Psych: Other (mood and affect are labile from normal to angry) Results - Vitals Vitals: Vital Signs - 24 hr 09/23/21 09/23/21 09/23/21 19:31 21:33 23:00 Temperature 35.8 C L Heart Rate 97 94 90 Respiratory 18 18 18 Rate Blood Pressure 172/78 H 138/63 H 158/77 H O2 Saturation 98 96 95 Oxygen O2 Source Room air - Labs Labs: Laboratory Tests 09/23/21 09/23/21 09/23/21 19:53 19:53 19:53 WBC 16.3 H RBC 3.51 L Hgb 11.0 L Hct 32.6 L MCV 92.9 MCH 31.3 H MCHC 33.7 RDW 13.1 Plt Count 267 MPV 9.5 Neut # (Auto) 14.6 H Lymph # (Auto) 0.[address] [place] # (Auto) 1.1 H Eos # (Auto) 0.0 Baso # (Auto) 0.0 Absolute Nucleated RBC 0.00 Nucleated RBC % 0.0 Sodium 134 L Potassium 3.9 Chloride 99 L Carbon Dioxide 18 L Anion Gap 17.0 H BUN 57 H Creatinine 1.4 H Estimated GFR (MDRD) 35 L Glucose 146 H Lactic Acid 1.4 Calcium 8.6 Total Bilirubin 1.1 H AST 21 ALT 17 Alkaline Phosphatase 90 Total Protein 6.3 L Albumin 3.1 L Globulin 3.2 Albumin/Globulin Ratio 1.0 Lipase 23 Urine Color Urine Clarity Urine pH Ur Specific Jet Urine Protein Urine Glucose (UA) Urine Ketones Urine Occult Blood Urine Nitrite Urine Bilirubin Urine Urobilinogen Ur Leukocyte Esterase Ur Microscopic Review Urine Culture Comments Nasal Adenovirus (PCR) Nasal B. parapertussis DNA (PCR) Nasal Coronavir 229E PCR Nasal Coronavir HKU1 PCR Nasal Coronavir NL63 PCR Nasal Coronavir OC43 PCR Nasal Enterovir/Rhinovir PCR Nasal Influenza B PCR Nasal Influenza A PCR Nasal Parainfluen 1 PCR Nasal Parainfluen 2 PCR Nasal Parainfluen 3 PCR Nasal Parainfluen 4 PCR Nasal RSV (PCR) Nasal B.pertussis DNA PCR Nasal C.pneumoniae (PCR) Gunnar Human Metapneumo PCR Nasal M.pneumoniae (PCR) Nasal SARS-CoV-2 (PCR) 09/23/21 09/24/21 21:22 00:05 WBC RBC Hgb Hct MCV MCH MCHC RDW Plt Count MPV Neut # (Auto) Lymph # (Auto) [facility] # (Auto) Eos # (Auto) Baso # (Auto) Absolute Nucleated RBC Nucleated RBC % Sodium Potassium Chloride Carbon Dioxide Anion Gap BUN Creatinine Estimated GFR (MDRD) Glucose Lactic Acid Calcium Total Bilirubin AST ALT Alkaline Phosphatase Total Protein Albumin Globulin Albumin/Globulin Ratio Lipase Urine Color YELLOW Urine Clarity CLEAR Urine pH 6.0 Ur Specific Jet 1.020 Urine Protein NEGATIVE Urine Glucose (UA) NEGATIVE Urine Ketones 40 H Urine Occult Blood NEGATIVE Urine Nitrite NEGATIVE Urine Bilirubin NEGATIVE Urine Urobilinogen 0.2 (NORMAL) Ur Leukocyte Esterase NEGATIVE Ur Microscopic Review NOT INDICATED Urine Culture Comments NOT INDICATED Nasal Adenovirus (PCR) NOT DETECTED Nasal B. parapertussis DNA (PCR) NOT DETECTED Nasal Coronavir 229E PCR NOT DETECTED Nasal Coronavir HKU1 PCR NOT DETECTED Nasal Coronavir NL63 PCR NOT DETECTED Nasal Coronavir OC43 PCR NOT DETECTED Nasal Enterovir/Rhinovir PCR NOT DETECTED Nasal Influenza B PCR NOT DETECTED Nasal Influenza A PCR NOT DETECTED Nasal Parainfluen 1 PCR NOT DETECTED Nasal Parainfluen 2 PCR NOT DETECTED Nasal Parainfluen 3 PCR NOT DETECTED Nasal Parainfluen 4 PCR NOT DETECTED Nasal RSV (PCR) NOT DETECTED Nasal B.pertussis DNA PCR NOT DETECTED Nasal C.pneumoniae (PCR) NOT DETECTED Gunnar Human Metapneumo PCR NOT DETECTED Nasal M.pneumoniae (PCR) NOT DETECTED Nasal SARS-CoV-2 (PCR) NOT DETECTED Procedures - IVC sono (time) 193 Bedside IVC sono: IVC measures (cm) (0.72), Significant dehydration (est 2-3 liter deficit) PD MEDICAL DECISION MAKING - ED course Complexity details: reviewed results, re-evaluated patient, considered differential, d/w patient ED course: 86-year-old female with a history of chronic low back pain has had a problem with her narcotics and she has had increased pain and despite our help here in the emergency department she continues to have severe pain and she has now had a decreased ability to ambulate and she has become significantly dehydrated. Here in the emergency department she continues to complain of pain and is requesting pain medication. We hydrated the patient with intravenous saline we did not administer pain medication. She is found to have acute kidney injury related to her dehydration. She is 86 years old and significantly dehydrated. She will need additional IV fluid at a reduced rate. She is admitted for further hydration to clear her acute kidney injury. I found her pill count and total narcotic use to be about 2 1/2 pills per day bringing concern for under dosing and not overdosing. Departure - Departure Disposition: ED Place in Observation Clinical Impression: Acute exacerbation of chronic low back pain, Dehydration, severe, Acute kidney injury Discharge Date/Time: 09/24/21 01:26
[2021-09-23 21:33] LABS: GLUCOSE, URINE (UA) NEGATIVE (NEGATIVE); KETONES,URINE (UA) 40 mg/dL (NEGATIVE); LEUKOCYTE ESTERASE, URINE NEGATIVE (NEGATIVE); NITRITE,URINE NEGATIVE (NEGATIVE); OCCULT BLOOD,URINE NEGATIVE (NEGATIVE); PROTEIN,URINE NEGATIVE (NEGATIVE); UROBILINOGEN,URINE 0.2 (NORMAL) E.U./dL (NORMAL)
[2021-09-23 21:38] LABS: BILIRUBIN,URINE NEGATIVE (NEGATIVE); CLARITY,URINE CLEAR (CLEAR); ICTOTEST,URINE NEGATIVE
[2021-09-24] MEDS ORDERED: ONDANSETRON 4 MG/2 ML VIAL IVP PRN (00:59)
[2021-09-24] MEDS ORDERED: SODIUM CHLORIDE FLUSH 0.9% 10 ML SYRINGE IVP PRN (00:59)
[2021-09-24] MEDS ORDERED: ONDANSETRON ODT 4 MG TABLET TL PRN (00:59)
[2021-09-24] MEDS ORDERED: ACETAMINOPHEN 325 MG TABLET PO SCH (01:00)
--- NOTE | 2021-09-24 01:05 | HISTORY & PHYSICAL EXAMINATION ---
Chief Complaint - Chief Complaint Chief Complaint: can't get up due to back pain History of Present Illness - Admitted From Admitted From:: home via EMS - History Obtained From Records Reviewed: [employer] and [employer] History obtained from: Friend Vlad Silva: [phone] Exam Limitations: patient is fatigued and in pain - History of Present Illness HPI Comment/Other: This is an 86-year-old female who is still living alone. 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 She has completed chemotherapy and radiation with carboplatinum and Taxol in April 2019. She had delay of maintenance treatment due to hospitalization for infection and fall resulting in T9 fracture May 2019 and a subsequent stay at a SNF. She was then started on maintenance durvalumab July 2019 for every 2 weeks and completed it in July 2020. She has stable disease imaging on January 2020. Her main problem throughout this time is actually been chronic nonmalignant back pain secondary to her mechanical fall resulting in a T9 fracture. She also has chronic intermittent lumbar sciatica for the last two years. She was on chronic opioid therapy. Due to changes in policy within her primary care provider clinic, her opioid therapy was abruptly discontinued and she has been scrambling ever since that time to try and find appropriate control. Her most recent pain medicine was being given to her by her dentist. She was actually doing better and "stable" when she developed severe acute on chronic sciatic back pain 2 weeks ago. She was independent. Dresses herself, took her own showers, and [place] [facility]. She says that is the only time she would drive off [place]. If she had to go further she would rely on her friends to drive her for appointments or grocery shopping. She had her teeth removed over the last 2 months. And the same friends who drive her for long distance appointments are the same friends that bring her soup with lots of rice and broken up chicken that she finds very tasty. For about 10 years she rizo s been sleeping on a lazy boy or her couch. Most recently she prefers her lazy boy. She does not like to sleep in her bed. The sudden increase in sciatica for the last 2 weeks is resulted in a few primary care provider visits and at least 5 visits to the emergency room. Today was visit #5, and Dr. Koenig called the hospitalist team for placement in observation. She called EMS when her back pain was so severe today and when she tried to get out of her lazy boy, she fell on the floor. Dr. Koenig finds her to be in significant pain, with "profound" dehydration. Temperature is 35.8. Pulse 97. Blood pressure 172/78. Respirations 18. 98% on room air. After all of her visits in the ER, she has been sent home on prescriptions for acetaminophen with oxycodone, acetaminophen with hydrocodone, or Mobic. Her friend makes sure that she is getting her medicines. He is aware that she has problems with opioid overuse and he makes sure that he takes the pills home with him and then redistribute him to her the next day. He does not trust her to make sure she takes her pills correctly with regards to pain pills. Dr. Koenig found her to be dehydrated and started her on 1 L of fluids. When that was completed he started her on maintenance fluids. She was a well-nourished, well-developed elderly female. Talks a lot. When distracted does not appear to be in any pain. Has some bibasilar rhonchi. A benign abdomen exam. The left leg is wrapped in Jf wraps from the thigh down to the calf for comfort. She does not have any motor deficits and is alert and oriented. Mood and affect is labile from normal to angry. She has an appointment with the [place] pain clinic on 09/28. White cell count is 16.3. Hemoglobin 11. BUN and creatinine are acutely elevated at 57 and 1.4. Lactic acid 1.4. Dr. Koenig feels that this patient has dehydration. He is hoping that we can hydrate her, and then tomorrow morning start problem solving with how we can keep her safely at home. 2 years ago she was at [facility] nursing facility in association with the fall, hospitalization, subsequent weakness. History - Past Medical History Cardiovascular: reports: Hypertension, High cholesterol, Coronary artery disease, [place], Other Respiratory: reports: COPD, Emphysema, Other (lung cancer) Neuro: reports: None Endocrine/Autoimmune: reports: Type 2 diabetes GI: reports: None FLUXER: reports: Other () : reports: None HEENT: reports: Chronic vision loss, Macular degeneration Psych: reports: None Musculoskeletal: reports: Osteoporosis, Chronic back pain (MRI June 25, 2019. Broad-based posterior disc bulge with right paracentral disc extrusion. Fragment extends inferiorly along the posterior surface of L5, posteriorly displacing the right L5 nerve root in the lateral recess. Moderate right and left foraminal narrowing.) Derm: reports: None MRSA Hx?: No - Past Surgical History Ortho: reports: Arthroscopic surgery /FLUXER: reports: Hysterectomy Cardiovascular: reports: Coronary stent HEENT: reports: Cataracts - Family & Social History Family History Comment/Other: Mom with history of heart failure and in her late 80s. Dad not known bc of divorce. Brother of an unknown cancer. Adopted Daughter is an alcoholic. Living arrangement: At home Living Situation: Alone Social History Notes: Born in [place]. Worked for [employer] for >20 years. She lives alone since her 's in ~2011. Independent with activities of daily living. Her daughter lives near by, but she it is a "love/hate" relationship and she has not seen her in months. When she went to the SNF, patient was afraid that she was not going to leave so she signed over her house to her daughter. She changed her mind and wanted it back once she recovered but the daughter won't do it so they have had a falling out. She relies on a long time family friend, Vlad Silva, who she and her knew since 1995 when David and her worked together in the [employer]. She quit smoking ~2006 but previously smoked for about 60 years. She endorses mild to moderate alcohol use and denies illicit drug use. She does not want me to discuss the case w her daughter and is in the process of making Vlad her DPOA and POA. - Substance History Use: Uses substance without health or social issues: Alcohol Abuse: Recurrent use of substance despite neg consequences: NONE Dependence: Experiences withdrawal or developed tolerances: NONE - POLST Patient has POLST: No POLST Status: DNR (when CPR and resuscitation stats discussed she did not want CPR or intubation) Meds/Allgy - Home Medications Home Medications: Ambulatory Orders Medication Instructions Recorded Confirmed Lisinopril 10 mg PO BID 03/25/14 09/23/21 Simvastatin 40 mg PO QPM 03/25/14 09/23/21 Metformin HCl 500 mg PO BID 08/01/14 09/23/21 Cholecalciferol (Vitamin D3) 1,000 unit PO DAILY 01/27/16 09/23/21 [Vitamin D3] Calcium Carbonate/Vitamin D3 2 tab PO DAILY 04/20/19 09/23/21 [Calcium 600-Vit D3 400 Tablet] Metoprolol Tartrate 25 mg PO BID 05/05/19 09/23/21 Hydrocodone/Acetaminophen 1 tab PO DAILY PRN 05/12/19 09/23/21 [Hydrocodone-Acetamin 5-325 mg] Albuterol Sulfate [Proair 90 mcg IH Q8H PRN 30 Days #1 06/14/21 09/13/21 Respiclick] inhaler Meloxicam [Mobic] 7.5 mg PO BID PRN #20 tablet 09/18/21 09/23/21 HYDROcod/ACETAM 5/325 [Mackay 5/325] 1 - 2 tab PO Q6H PRN #10 tablet 09/20/21 Oxycodone HCl/Acetaminophen 1 - 2 each PO Q6H PRN #14 tablet 09/22/21 09/23/21 [Percocet 5-325 mg Tablet] Amoxicillin 500 mg PO TID 09/23/21 09/23/21 Pregabalin [Lyrica] 25 mg PO BID 09/23/21 09/23/21 - Allergies Allergies/Adverse Reactions: Allergies Allergy/AdvReac Type Severity Reaction Status Date / Time No Known Drug Allergies Allergy Verified 09/23/21 19:33 Review of Systems - Constitutional Constitutional: reports: Poor appetite (recently due to pain), Weight loss (over the years of lung cancer treatment). denies: Fatigue, Fever, Chills, Malaise - Eyes Eyes: denies: Pain, Irritation, Amaurosis, Blurred vision, Vision loss - Ears, Nose & Throat Ears, Nose & Throat: reports: Dental decay (has had 10 teeth removed over the last month), Dental pain (hard to eat hard food). denies: Hearing loss, Hearing aids, Nasal obstruction, Postnasal drainage, Dentures, Sore throat - Cardiovascular Cariovascular: denies: Irregular heart rate, Palpitations, Chest pain, Edema, Exertional dyspnea, Decr. exercise tolerance - Respiratory Respiratory: reports: Cough (occasionally), Wheezing (occasionally). denies: Sputum production, Snoring, Hemoptysis, SOB at rest, SOB with exertion - Gastrointestinal Gastrointestinal: reports: Constipation. denies: Abdominal pain, Abdominal distention, Diarrhea, Change in bowel habits, Rectal bleeding - Genitourinary Genitourinary: reports: Frequency, Other (retention). denies: Dysuria, Urgency, Hematuria, Incontinence, Flank pain - Musculoskeletal Musculoskeletal: reports: Back pain (severe and radiates to left leg to foot. can't even roll over in bed or flex at hip). denies: Muscle pain - Integumentary Integumentary: denies: Rash, Pruritis, Lesions, Dryness - Neurological Neurological: reports: Focal weakness (left leg). denies: General weakness, Headache, Dizziness, Memory problems - Psychiatric Psychiatric: reports: Anxiety. denies: Depression, Suicidal, Delusions, Hallucinations - Endocrine Endocrine: denies: Polyuria, Polydypsia, Polyphagia, Intolerance to cold - Hematologic/Lymphatic Hematologic/Lymphatic: denies: Anemia, Bruising, Petechiae, Blood clots Prior Level of Functionality: was living alone and without DME until 2 weeks ago. Was driving, dressing and bathing. Had food delivered due to her teeth being gone. Exam - Vital Signs Reviewed Vital Signs: Yes Vital Signs: Vital Signs x48h Temp Pulse Resp BP Pulse Ox 09/23/21 23:00 90 18 158/77 H 95 09/23/21 21:33 94 18 138/63 H 96 09/23/21 19:31 35.8 C L 97 18 172/78 H 98 - Physical Exam General Appearance: positive: Alert (asking how to change TV channels), Severe distress (every time she moves left leg, 10/10 pain down the leg to foot), Other (cachectic, temporal wasting, rib cage/clavicles/scapula prominent) Eyes Bilateral: positive: PERRL ENT: positive: Pharynx nml, Other (paritally edentulous) Neck: positive: No JVD. negative: Lymphadenopathy (R), Lymphadenopathy (L), Stiff neck, Carotid bruit Respiratory: positive: Chest non-tender, No respiratory distress. negative: Wheezes, Rales, Rhonchi Cardiovascular: positive: Regular rate & rhythm (hard knocking S1 and S2). negative: Systolic murmur, Gallop/S4, Friction rub Peripheral Pulses: positive: 1+ Abdomen: positive: Non-tender, No organomegaly, Nml bowel sounds Skin: positive: Warm, Dry Extremities: positive: Full ROM, No pedal edema, Other (OA of fingers of hands with each finger covered in a ring: grzegorz, gold, darryl. told her might not be a good idea to bring that to hospital but she says she can't get the rings off). negative: Calf tenderness, Joint swelling, Brooke's sign/cords Neurologic/Psychiatric: positive: Oriented x3, CN's nml (2-12), Motor nml. negative: Sensation nml (numb feet with L>R), Depressed mood/affect Conclusion/Plan - Problem List (1) Dehydration, severe Conclusion/Plan: As manifested by dry oral mucosa, weakness, fatigue, and an abrupt rise in BUN and creatinine. I attribute this to lack of p.o. intake in a patient who is in severe pain, taking opiates, and not able to move very well. the ketones in her urine confirm the lack of food intake. Plan: Observation status IV fluids Regular diet Monitor labs for improvement Social work consult to see how we can help her stay safely at home (2) Acute kidney injury Conclusion/Plan: Due to dehydration. Will give 1 more liter of fluid. She is already received 1 L in the emergency room. Reassess labs in the morning. (3) Acute exacerbation of chronic low back pain Conclusion/Plan: Unfortunately this patient has been caught in the cross fires of policy change. Overall opioid prescriptions have been cut back due to clinic policy and the [facility] policy. The impression I get is that she was taking quite a bit in order to control her back pain since the T9 fracture and then the sciatica as well. She is trying to see a "back person" in the next few days fo r possible steroid injection. But I do not know exactly who she is referring to and if she is referring to an [facility]. she says it's the clinic in [place]. Plan: Plain films of her back Tylenol on a scheduled dose I am avoiding nonsteroidals due to her acute kidney injury Oxycodone as needed Colace daily to avoid constipation PT for eval and TX and I anticipate she will need HH RN, bath aide, PT. She refuses placement to SNf for rehab at this time. (4) Hypertension Conclusion/Plan: At home she takes lisinopril, metoprolol. Those will be resumed. Blood pressure is anywhere from 138 and is high as 184. Qualifiers: Hypertension type: primary hypertension Qualified Code(s): I10 - Essential (primary) hypertension (5) Elevated WBC count Conclusion/Plan: On physical exam there is no indication of infection. Chest x-ray is negative for pneumonia. Urinalysis is negative for UTI. Abdominal exam is benign. As such I am attributing the elevated white cell count to leukemoid reaction and her dehydration. When she has been hydrated we will reassess it tomorrow morning to see if it has gone down. Qualifiers: Leukocytosis type: bandemia Qualified Code(s): D72.825 - Bandemia (6) Diabetes mellitus Conclusion/Plan: At home she takes Metformin. In the face of acute kidney injury and dehydration I am surprised she does not have lactic acidosis. At this time we will hold off on metformin, give her fluids. Treat with sliding scale insulin if nece ssary. Order a carb restricted diet. It will have to be mechanically soft since she is partially edentulous. Qualifiers: Diabetes mellitus type: type 2 Diabetes mellitus correction insulin use: without correction use Diabetes mellitus complication status: without complication Qualified Code(s): E11.9 - Type 2 diabetes mellitus without complications - Lab Results Lab results reviewed: Yes Fish Bones: 09/23/21 19:53 09/23/21 19:53 - Diagnostic Imaging Results Diagnostic Imaging Results: positive: Final report reviewed Core Measures - Anticipated LOS I expect patient to be DC'd or transferred within 96 hours.: Yes - DVT/VTE - Prophylaxis VTE/DVT Device ordered at admit?: Yes VTE/DVT Prophylaxis med ordered at admit?: No
[2021-09-24 01:30] LABS: B. PARAPERTUSSIS- RESP PCR PAN NOT DETECTED; B. PERTUSSIS- RESP PCR PANEL NOT DETECTED; C. PNEUMONIAE- RESP PCR PANEL NOT DETECTED; CORONAVIRUS 229E-RESP PCR NOT DETECTED; CORONAVIRUS HKU1-RESP PCR NOT DETECTED; CORONAVIRUS NL63-RESP PCR NOT DETECTED; CORONAVIRUS OC43-RESP PCR NOT DETECTED; HUMAN METAPNEUMOVIRUS NOT DETECTED; INFLUENZA A- RESP PCR PANEL NOT DETECTED; INFLUENZA B - RESP PCR PANEL NOT DETECTED; M. PNEUMONIAE- RESP PCR PANEL NOT DETECTED; PARAINFLUENZA VIRUS 1 NOT DETECTED; PARAINFLUENZA VIRUS 2 NOT DETECTED; PARAINFLUENZA VIRUS 3 NOT DETECTED; PARAINFLUENZA VIRUS 4 NOT DETECTED; RHINOVIRUS/ENTEROVIRUS NOT DETECTED; RSV- RESP PCR PANEL NOT DETECTED; SARS-CoV-2 -RESP PCR PANEL NOT DETECTED
[2021-09-24] MEDS: DEXTROSE 5%-0.9% NACL 1,000 ML IV SCH ×2 (01:41→11:34)
[2021-09-24] MEDS: SODIUM CHLORIDE FLUSH 0.9% 10 ML SYRINGE IVP SCH ×3 (01:41→16:33)
[2021-09-24] MEDS: lisinopriL 5 MG TABLET PO SCH ×3 (02:28→20:41)
[2021-09-24] MEDS ORDERED: MORPHINE 2 MG/ML CARPUJECT IVP STA (03:01)
[2021-09-24 05:46] LABS: BASOPHILS % (AUTO) 0.1 %; EOSINOPHILS % (AUTO) 0.1 %; HCT - HEMATOCRIT 27.2 % (37.0-47.0); HGB - HEMOGLOBIN 9.1 g/dL (12.0-16.0); LYMPHOCYTES # (AUTO) 0.7 10^3/uL (1.5-3.5); LYMPHOCYTES % (AUTO) 7.6 %; MEAN CORPUSCULAR HEMOGLOBIN 31.4 pg (27.0-31.0); MEAN CORPUSCULAR HGB CONC 33.5 g/dL (32.0-36.0); MEAN CORPUSCULAR VOLUME 93.8 fL (81.0-99.0); MEAN PLATELET VOLUME 9.6 fL (7.9-10.8); MONOCYTES # (AUTO) 0.6 10^3/uL (0.0-1.0); MONOCYTES % (AUTO) 6.5 %; NEUTROPHILS # (AUTO) 7.2 10^3/uL (1.5-6.6); NEUTROPHILS % (AUTO) 85.2 %; PLT - PLATELET COUNT 233 10^3/uL (130-450); WHITE BLOOD COUNT 8.5 x10^3/uL (4.8-10.8)
[2021-09-24 05:51] LABS: CALCIUM 7.9 mg/dL (8.5-10.3); POTASSIUM 3.8 mmol/L (3.5-5.0)
--- NOTE | 2021-09-24 07:45 | PHARMACY PROGRESS NOTE ---
- Best Possible Medication History Admit Date and Time: 09/24/21 0059 Processed by: Nursing Medication History completed: Yes Secondary Source(s): Pharmacy records, Insurance records As the person ultimately responsible for medication therapy, providers are able to order a medication from an existing home medication list in [facility] via the "Reconcile Routine" prior to Confirmation of that medication by wind farm support specialist. Such practice is discouraged except when the physician, in their clinical judgment, deems that a medical need exists for a medication without regard to previous use.
[2021-09-24] MEDS: oxyCODONE 5 MG TABLET PO PRN ×4 (08:16→20:39)
[2021-09-24] MEDS: ACETAMINOPHEN 500 MG TABLET PO SCH ×3 (08:16→22:25)
[2021-09-24] MEDS: polyethylene glycoL 3350 17 GM PACKET PO SCH (08:20)
[2021-09-24] MEDS: METOPROLOL TARTRATE 25 MG TABLET PO SCH ×2 (08:21→20:40)
[2021-09-24] MEDS: PREGABALIN 25 MG CAPSULE PO SCH ×2 (08:21→20:42)
[2021-09-24] MEDS ORDERED: DOCUSATE SODIUM 100 MG CAPSULE PO SCH (09:00)
[2021-09-24 11:48] LABS: HCT - HEMATOCRIT 27.6 % (37.0-47.0); HGB - HEMOGLOBIN 9.3 g/dL (12.0-16.0)
[2021-09-24 12:10] LABS: % IRON SATURATION 11 % (20-50); IRON 24 ug/dL (28-170); TOTAL IRON BINDING CAPACITY 217 ug/dL (250-450); TRANSFERRIN 155 mg/dL (192-382)
[2021-09-24 12:26] LABS: FERRITIN 83.8 ng/mL (11.0-306.8)
[2021-09-24 12:30] LABS: FOLATE 9.03 ng/mL (5.90 - >24.8)
[2021-09-24] MEDS: DOCUSATE SODIUM 250 MG CAPSULE PO SCH (20:43)
[2021-09-24] MEDS: methocarbamoL 500 MG TABLET PO PRN (20:44)
[2021-09-24] MEDS: SENNA 8.6 MG TABLET PO SCH (20:44)
[2021-09-24 22:25] LABS: HGB - HEMOGLOBIN 9.3 g/dL (12.0-16.0)
[2021-09-25] MEDS: SODIUM CHLORIDE FLUSH 0.9% 10 ML SYRINGE IVP SCH ×2 (00:11→08:20)
[2021-09-25] MEDS: oxyCODONE 5 MG TABLET PO PRN ×4 (01:43→17:05)
[2021-09-25] MEDS: methocarbamoL 500 MG TABLET PO PRN (04:29)
[2021-09-25 05:27] LABS: BASOPHILS % (AUTO) 0.2 %; EOSINOPHILS # (AUTO) 0.1 10^3/uL (0.0-0.7); EOSINOPHILS % (AUTO) 1.5 %; HCT - HEMATOCRIT 23.9 % (37.0-47.0); LYMPHOCYTES # (AUTO) 0.8 10^3/uL (1.5-3.5); LYMPHOCYTES % (AUTO) 15.3 %; MEAN CORPUSCULAR HEMOGLOBIN 31.5 pg (27.0-31.0); MEAN CORPUSCULAR HGB CONC 33.5 g/dL (32.0-36.0); MEAN CORPUSCULAR VOLUME 94.1 fL (81.0-99.0); MEAN PLATELET VOLUME 9.6 fL (7.9-10.8); MONOCYTES # (AUTO) 0.5 10^3/uL (0.0-1.0); MONOCYTES % (AUTO) 8.7 %; NEUTROPHILS # (AUTO) 3.9 10^3/uL (1.5-6.6); NEUTROPHILS % (AUTO) 73.2 %; PLT - PLATELET COUNT 152 10^3/uL (130-450); RED BLOOD COUNT 2.54 10^6/uL (4.20-5.40); RED CELL DISTRIBUTION WIDTH 13.5 % (12.0-15.0); WHITE BLOOD COUNT 5.3 x10^3/uL (4.8-10.8)
[2021-09-25 05:39] LABS: CREATININE 0.5 mg/dL (0.4-1.0); POTASSIUM 2.8 mmol/L (3.5-5.0)
[2021-09-25 05:40] LABS: CALCIUM 5.6 mg/dL (8.5-10.3)
[2021-09-25] MEDS: ACETAMINOPHEN 500 MG TABLET PO SCH ×2 (05:51→14:29)
[2021-09-25] MEDS: METOPROLOL TARTRATE 25 MG TABLET PO SCH (08:28)
[2021-09-25] MEDS: lisinopriL 5 MG TABLET PO SCH (08:28)
[2021-09-25] MEDS: polyethylene glycoL 3350 17 GM PACKET PO SCH (08:41)
[2021-09-25] MEDS: SENNA 8.6 MG TABLET PO SCH (08:42)
[2021-09-25 08:43] LABS: BASOPHILS % (AUTO) 0.1 %; EOSINOPHILS # (AUTO) 0.1 10^3/uL (0.0-0.7); EOSINOPHILS % (AUTO) 1.6 %; HCT - HEMATOCRIT 32.6 % (37.0-47.0); HGB - HEMOGLOBIN 10.8 g/dL (12.0-16.0); LYMPHOCYTES % (AUTO) 11.9 %; MEAN CORPUSCULAR HEMOGLOBIN 30.6 pg (27.0-31.0); MEAN CORPUSCULAR HGB CONC 33.1 g/dL (32.0-36.0); MEAN CORPUSCULAR VOLUME 92.4 fL (81.0-99.0); MEAN PLATELET VOLUME 9.6 fL (7.9-10.8); MONOCYTES # (AUTO) 0.6 10^3/uL (0.0-1.0); NEUTROPHILS # (AUTO) 6.2 10^3/uL (1.5-6.6); NEUTROPHILS % (AUTO) 77.8 %; PLT - PLATELET COUNT 246 10^3/uL (130-450); RED BLOOD COUNT 3.53 10^6/uL (4.20-5.40); RED CELL DISTRIBUTION WIDTH 13.3 % (12.0-15.0)
[2021-09-25] MEDS: DOCUSATE SODIUM 250 MG CAPSULE PO SCH (08:44)
[2021-09-25 08:49] LABS: CALCIUM 8.4 mg/dL (8.5-10.3); CREATININE 0.8 mg/dL (0.4-1.0); POTASSIUM 4.1 mmol/L (3.5-5.0)
[2021-09-25] MEDS: PREGABALIN 25 MG CAPSULE PO SCH (08:53)
[2021-09-25] MEDS ORDERED: KETOROLAC 15 MG/ML VIAL IVP STA (09:04)
--- NOTE | 2021-09-25 13:11 | MRI Report ---
PROCEDURE: Lumbar Spine W/O INDICATIONS: Low back pain. Urinary retention. Radiculopathy. TECHNIQUE: Noncontrast sagittal T1 spin echo and T2 fast echo, sagittal STIR, axial T1 and T2 fast spin echo thr ough the lumbar spine. In cases with scoliosis, additional coronal T2 fast spin echo may be performe d. COMPARISON: CT dated 05/09/2022. Lumbar spine MRI report dated 06/25/2019 FINDINGS: Image quality: Excellent. Alignment and Curvature: 5 lumbar type vertebral bodies are present by CT. Alignment is normal. Bone Marrow: Marrow is of normal overall signal. No acute vertebral body compression fractures. Mi ld reactive signal throughout the endplates of the lumbar and lower thoracic spine. Spinal Cord: Conus medullaris terminates at the lower L1 level. Visualized cord demonstrates normal signal and size. Paraspinous Soft Tissues: No paravertebral masses. T12-L1: Mild disc desiccation. No significant canal, nor foraminal stenosis. L1-L2: Mild disc height loss and desiccation. Mild diffuse disc bulge. Mild facet and ligament fla vum hypertrophy. Mild canal stenosis. Mild bilateral foraminal stenosis. L2-L3: Mild disc desiccation and diffuse disc bulge. Mild facet and ligament flavum hypertrophy. M ild canal stenosis. Mild left greater than right foraminal stenosis. L3-L4: Mild disc desiccation and diffuse disc bulge. Mild facet and ligament flavum hypertrophy. Mi ld canal stenosis. Moderate left and mild right foraminal stenosis. L4-L5: Moderate disc height loss and desiccation. Mild diffuse disc bulge with small superimposed b road-based right posterolateral protrusion. Mild facet and ligament flavum hypertrophy. Mild canal st enosis. Mild left and moderate to severe right foraminal stenosis. Mild right L4 nerve root compressi on. L5-S1: Mild disc desiccation and diffuse disc bulge. Mild bilateral facet hypertrophy. No significa nt canal, nor foraminal stenosis. IMPRESSION: 1. Multilevel degenerative disc and facet disease, in addition to epidural lipomatosis and ligamentum flavum hypertrophy. 2. Mild multilevel canal stenoses. 3. Multilevel foraminal stenoses, worst at L4-L5 on the right where there is associated intraforamina l nerve root compression. Recommend correlation with clinical symptoms to ascertain relevance of this finding. Reviewed by: Ankur Campuzano MD on 09/25/2021 1:09 PM PDT Approved by: Ankur Campuzano MD on 09/25/2021 1:09 PM PDT Station ID: [id number]
--- NOTE | 2021-09-25 15:21 | Discharge Plan ---
Discharge Plan Problem Reviewed?: Yes Disposition: Home Health Service Condition: Stable Prescriptions: methocarbamoL [Robaxin] 500 mg PO Q6HR PRN #30 tablet PRN Reason: Spasms Acetaminophen [Acetaminophen Extra Strength] 1,000 mg PO BID #60 tablet Docusate Sodium 100Mg Capsule [Colace 100Mg Capsule] 100 mg PO DAILY #30 cap Ferrous Sulfate [Feosol] 325 mg PO DAILYWM #30 tablet Diet: Cardiac Activity Restrictions: Activity as Tolerated Assistance Devices: [facility] Concerns: You were admitted to the hospital because of dehydration and you were treated with IV fluids with improvement in your kidney numbers. We did an MRI of your back given you were complaining of worsening pain and this showed chronic changes. You have tightening of your spinal canal on the right side but this would not explain your left-sided sciatica. Plan of Treatment: Please take Tylenol 1000 mg 2 times a day for your pain. You may continue the oxycodone you were previously prescribed but only take it every 6 hours. Please follow-up with your pain physician this for the injection. You had urinary retention and you will need a Garay catheter when you go home. You can follow-up with your primary care physician in 1 to 2 weeks for follow-up of this. I have also prescribed you a stool softener as the pain medication can make you constipated. I also prescribed you a muscle relaxant which you may take every 6 hours as needed. I also prescribed you an iron pill as you are a little iron deficient. Assessment: The patient and family friend expressed understanding of the treatment plan. Additional Instructions or Follow Up instructions: Follow-up with your pain doctor this week. Please follow-up with your primary care physician in 1 to 2 weeks. Follow-Up Care: Home Health - PT, Home Health - OT No Smoking: If you smoke, Please STOP! Call for help. Follow-up with: Magdi Troy DO [Primary Care Provider] -
--- NOTE | 2021-09-25 15:38 | DISCHARGE SUMMARY ---
Discharge Summary Admit Date: 09/24/21 Discharge Date: 09/25/21 Discharging Provider: Maycol Platt Primary Care Provider: Magdi Troy Code Status: Do Not Attempt Resuscitation Condition at Discharge: Stable Discharge Disposition: Home Health Service - DIAGNOSES Admission Diagnoses: Dehydration Acute kidney injury Acute exacerbation of chronic low back pain Hypertension Elevated WBC count Diabetes mellitus type 2 Discharge Diagnoses with Status of Each Condition: Acute xacerbation of chronic low back pain - stable. Acute kidney injury- resolved. Hypertension - stable. Leukocytosis - resolved. Type 2 diabetes mellitus - stable. Anemia - stable. Urinary retention - ongoing. - HPI History of Present Illness: H&P per Dr. Castano: This is an 86-year-old female who is still living alone. 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 She has completed chemotherapy and radiation with carboplatinum and Taxol in April 2019. She had delay of maintenance treatment due to hospitalization for infection and fall resulting in T9 fracture May 2019 and a subsequent stay at a SNF. She was then started on maintenance durvalumab July 2019 for every 2 weeks and completed it in July 2020. She has stable disease imaging on 2019. Her main problem throughout this time is actually been chronic nonmalignant back pain secondary to her mechanical fall resulting in a T9 fracture. She also has chronic intermittent lumbar sciatica for the last two years. She was on chronic opioid therapy. Due to changes in policy within her primary care provider clinic, her opioid therapy was abruptly discontinued and she has been scrambling ever since that time to try and find appropriate control. Her most recent pain medicine was being given to her by her dentist. She was actually doing better and "stable" when she developed severe acute on chronic sciatic back pain 2 weeks ago. She was independent. Dresses herself, took her own showers, and [place] to [place] [employer]. She says that is the only [place]. If she had to go further she would rely on her friends to drive her for appointments or grocery shopping. She had her teeth removed over the last 2 months. And the same friends who drive her for long distance appointments are the same friends that bring her soup with lots of rice and broken up chicken that she finds very tasty. For about 10 years she has been sleeping on a lazy boy or her couch. Most recently she prefers her lazy boy. She does not like to sleep in her bed. The sudden increase in sciatica for the last 2 weeks is resulted in a few primary care provider visits and at least 5 visits to the emergency room. Today was visit #5, and Dr. Koenig called the hospitalist team for placement in observation. She called EMS when her back pain was so severe today and when she tried to get out of her lazy boy, she fell on the floor. Dr. Koenig finds her to be in significant pain, with "profound" dehydration. Temperature is 35.8. Pulse 97. Blood pressure 172/78. Respirations 18. 98% on room air. After all of her visits in the ER, she has been sent home on prescriptions for acetaminophen with oxycodone, acetaminophen with hydrocodone, or Mobic. Her friend makes sure that she is getting her medicines. He is aware that she has problems with opioid overuse and he makes sure that he takes the pills home with him and then redis tribute him to her the next day. He does not trust her to make sure she takes her pills correctly with regards to pain pills. Dr. Koenig found her to be dehydrated and started her on 1 L of fluids. When that was completed he started her on maintenance fluids. She was a well-nourished, well-developed elderly female. Talks a lot. When distracted does not appear to be in any pain. Has some bibasilar rhonchi. A benign abdomen exam. The left leg is wrapped in Jf wraps from the thigh down to the calf for comfort. She does not have any motor deficits and is alert and oriented. Mood and affect is labile from normal to angry. She has an appointment with the [place] [facility] on 09/28. White cell count is 16.3. Hemoglobin 11. BUN and creatinine are acutely elevated at 57 and 1.4. Lactic acid 1.4. Dr. Koenig feels that this patient has dehydration. He is hoping that we can hydrate her, and then tomorrow morning start problem solving with how we can keep her safely at home. 2 years ago she was at [facility] in association with the fall, hospitalization, subsequent weakness. - CONSULTS | PROCEDURES Consultations: Social Work, PT - HOSPITAL COURSE Hospital Course: She was admitted for acute kidney injury secondary to dehydration. She treated with IV fluids with resolution of the acute kidney injury and her white blood cell count returned within normal limits. There was a drop in hemoglobin but this remained stable without evidence of bleeding and was likely dilutional. She was started on oral iron as there was evidence of iron deficiency anemia. The patient's pain was treated with oral oxycodone and standing Tylenol. We also start her on Robaxin. We consulted PT who recommended SNF but patient declined as she would be self-pay. She had urinary retention on the day of discharge and given her worsening back pain, a lumbar spine MRI was obtained which showed no evidence of cauda equina or expansion of the urinary retention or her acute back pain. We recommended that she go home with home health and follow-up with her pain physician this week for follow-up. We confirmed with her close friend, Vlad, that she does have oxycodone at home and she was not provided with a prescription. I asked her to take Tylenol 1 g twice daily and I prescribed her Robaxin. Vlad will be checking on her frequently to ensure she is doing well. The patient declined assisted living due to cost and she will be looking to get caregivers at home. She did have urinary retention with over 700 mL postvoid residual. A Garay catheter was placed and I discussed with her that her urine retention is likely due to the opiates. She will need follow-up with her primary care physician for management of this as we kept the Garay catheter in place. - ALLERGIES Allergies/Adverse Reactions: Allergies Allergy/AdvReac Type Severity Reaction Status Date / Time No Known Drug Allergies Allergy Verified 09/23/21 19:33 - MEDICATIONS Home Medications: Ambulatory Orders Medication Instructions Recorded Confirmed Lisinopril 10 mg PO BID 03/25/14 09/23/21 Simvastatin 40 mg PO QPM 03/25/14 09/23/21 Metformin HCl 500 mg PO BID 08/01/14 09/23/21 Cholecalciferol (Vitamin D3) 1,000 unit PO DAILY 01/27/16 09/23/21 [Vitamin D3] Calcium Carbonate/Vitamin D3 2 tab PO DAILY 04/20/19 09/23/21 [Calcium 600-Vit D3 400 Tablet] Metoprolol Tartrate 25 mg PO BID 05/05/19 09/23/21 Albuterol Sulfate [Proair 90 mcg IH Q8H PRN 30 Days #1 06/14/21 09/24/21 Respiclick] inhaler Meloxicam [Mobic] 7.5 mg PO BID PRN #20 tablet 09/18/21 09/23/21 Oxycodone HCl/Acetaminophen 1 - 2 each PO Q6H PRN #14 tablet 09/22/21 09/23/21 [Percocet 5-325 mg Tablet] Amoxicillin 500 mg PO TID 09/23/21 09/23/21 Pregabalin [Lyrica] 25 mg PO BID 09/23/21 09/23/21 Acetaminophen [Acetaminophen Extra 1,000 mg PO BID #60 tablet 09/25/21 Strength] Docusate Sodium 100Mg Capsule 100 mg PO DAILY #30 cap 09/25/21 [Colace 100Mg Capsule] Ferrous Sulfate [Feosol] 325 mg PO DAILYWM #30 tablet 09/25/21 methocarbamoL [Robaxin] 500 mg PO Q6HR PRN #30 tablet 09/25/21 - PHYSICAL EXAM AT DISCHARGE General Appearance: positive: Alert, Mild distress Eyes Bilateral: positive: Normal inspection, Conjunctivae nml ENT: positive: ENT inspection nml Neck: positive: Nml inspection Respiratory: positive: No respiratory distress. negative: Wheezes, Rales Cardiovascular: positive: Regular rate & rhythm Abdomen: positive: Non-tender, No distention. negative: Tenderness Back: positive: Other (No lumbar spine or paraspinal tenderness. She has tenderness over the left gluteus rashel. ) Skin: positive: Warm, Dry Neurologic/Psychiatric: positive: Other (Sensation is intact over the bilateral lower extremities. 5 out of 5 motor strength.) - LABS Result Diagrams: 09/25/21 08:15 09/25/21 08:15 - DIAGNOSTIC IMAGING Diagnostic Imaging Results: Final report reviewed - FOLLOW UP Follow Up: She will be following up with her pain physician this week. She also need follow-up with her primary care physician within 1 to 2 weeks for management of the Garay catheter for the urinary retention. - TIME SPENT Time Spent in Discharge (Minutes): 36
[2021-09-25 16:18] VITALS: BP 176/85
[2021-09-26] MEDS ORDERED: FERROUS SULFATE 325 MG TABLET PO SCH (08:00)
== END 2021-09-25 19:45 | disposition home health service (06) ==
LOC: EDUNIT# → EDBD → ED 19:27 → MS2 09-24 00:59
PROVIDERS: ADMIT Specialist; ATTEND Internal Medicine
DX: E86.0 Dehydration (principal); N17.9 Acute kidney failure, unspecified; M54.40 Lumbago with sciatica, unspecified side; I10 Essential (primary) hypertension; D72.829 Elevated white blood cell count, unspecified; E11.9 Type 2 diabetes mellitus without complications; D50.9 Iron deficiency anemia, unspecified; R33.9 Retention of urine, unspecified; Z85.118 Personal history of other malignant neoplasm of bronchus and lung; Z92.21 Personal history of antineoplastic chemotherapy; Z92.3 Personal history of irradiation; Z79.891 Long term (current) use of opiate analgesic; G89.21 Chronic pain due to trauma; Z20.822 Contact with and (suspected) exposure to COVID-19; I25.10 Atherosclerotic heart disease of native coronary artery without angina pectoris; I25.2 Old myocardial infarction; J43.9 Emphysema, unspecified; Z87.891 Personal history of nicotine dependence; Z66 Do not resuscitate
CPT/HCPCS: 36415; 51701; 51702; 72148; 80048; 80053; 81003; 82607; 82728; 82746; 83540; 83605; 83690; 84466; 85014; 85018; 85025; 87631; 96361; 96374; 96375; 96376; 97161; 97530; 99284; 99285; A9270; G0378; 0202U; 81001; 82272; 87086

== ENCOUNTER 2022-01-03 10:31 | Outpatient (CLI) | payer MEDICARE, OTHER ==
[2022-01-03] MEDS ORDERED: lidocaine 1% 20 ML MDV ONE (11:08)
--- NOTE | 2022-01-03 12:19 | XRAY Report ---
PROCEDURE: Post Thoracentesis 1V CXR INDICATIONS: POST THORACENTESIS TECHNIQUE: One view of the chest was acquired. COMPARISON: CT chest 12/05/2021. FINDINGS: Surgical changes and devices: Left chest wall Port-A-Cath. Lungs and pleura: No pneumothorax. Trace left-sided pleural fluid collection. Consolidation in the le ft lung base not significantly changed compared to the prior CT scan. Mediastinum: Mediastinal contours appear normal. Heart size is normal. Bones and chest wall: No suspicious bony lesions. Overlying soft tissues appear unremarkable. IMPRESSION: No pneumothorax following thoracentesis. Trace left-sided pleural fluid collection. Reviewed by: Iona Chun MD, PhD on 01/03/2022 12:17 PM PDT Approved by: Iona Chun MD, PhD on 01/03/2022 12:17 PM PDT Station ID: [id number]
[2022-01-03] MEDS ORDERED: lidocaine 1% 20 ML MDV SUBQ ONE (12:48)
--- NOTE | 2022-01-03 15:43 | Ultrasound Report ---
PROCEDURE: Thoracentesis Puncture INDICATIONS: LUNG CA TECHNIQUE: The indications, alternatives, benefits, risks, and complications of the procedure were explained to the patient. Written informed consent was obtained and placed in the chart. The chest was examined sonographically, and an appropriate site was chosen for thoracentesis. The skin was prepared and rosemary ped in the usual sterile fashion, and 1% lidocaine was infiltrated from the skin down through the ple ural surface. A 19-gauge catheter-covered needle was then introduced into the pleural space, the cat heter was advanced and the needle was withdrawn, and thereafter pleural fluid was aspirated. The cat heter was then removed and a dressing was applied. COMPARISON: None. FINDINGS: Access site: Left hemithorax. Needle: One-Step centesis catheter with introducer needle. Fluid volume and description: 400 cc of yellow-colored clear fluid Fluid sent for diagnostic testing: Not requested Medications: 1% lidocaine for local anaesthesia. Complications: None; post-procedural chest radiograph is pending to assess for pneumothorax. IMPRESSION: Successful ultrasound-guided thoracentesis. Reviewed by: Iona Chun MD, PhD on 01/03/2022 3:42 PM PDT Approved by: Iona Chun MD, PhD on 01/03/2022 3:42 PM PDT Station ID: [id number]
== END 2022-01-03 10:32 | disposition home or self-care (01) ==
LOC: DI 10:31
PROVIDERS: ATTEND Internal Medicine
DX: C34.90 Malignant neoplasm of unspecified part of unspecified bronchus or lung (principal)
CPT/HCPCS: 32555

== ENCOUNTER 2022-04-20 16:32 | Outpatient (CLI) | payer MEDICARE, OTHER | END 2022-04-20 16:33 | disposition critical access hospital (66) | LOC: EMS 16:32 | DX: S79.912A Unspecified injury of left hip, initial encounter (principal); V48.4XXA Person boarding or alighting a car injured in noncollision transport accident, initial encounter; Y93.89 Activity, other specified; Y92.009 Unspecified place in unspecified non-institutional (private) residence as the place of occurrence of the external cause | CPT/HCPCS: A0425; A0427 ==